=== PATIENT | male | born 1960 | race Caucasian/White ===

== ENCOUNTER 2020-06-03 06:52 | Inpatient (IN) | payer OTHER, SELFPAY ==
[2020-06-03] VITALS (14 sets, daily range): BP systolic 84–110; BP diastolic 52–80; PULSE 66–92; RESP 18–24; TEMP 36.1–37.6; O2SAT 86–99; BMI 35.1
--- NOTE | ~2020-06-03 | US_ITS ---
US renal BI 06/05/2020 14:13 Procedure: Realtime transabdominal ultrasound of the kidneys and bladder. Indication: Acute on chronic renal disease. Comparison: 01/19/2012 Findings: Renal echotexture is normal bilaterally without hydronephrosis, contour deforming mass or r enal calculus. The right kidney measures 11.4 cm and left kidney measures 11.5 cm. There is a Aponte c atheter in the bladder. Impression: 1: Unremarkable renal ultrasound. No stones, masses or hydronephrosis. Reviewed, dictated and finalized at location A. HANDLING EQUIPMENT OPERATOR Impression: 1: Unremarkable renal ultrasound. No stones, masses or hydronephrosis.
--- NOTE | ~2020-06-03 | XR_ITS ---
EXAMINATION: XR chest 1V portable EXAM DATE: 06/16/2020 03:14 INDICATION: Respiratory failure. TECHNIQUE: Portable AP frontal chest x-ray was obtained. Comparison is made to prior examination from 06/14, 06/15. FINDINGS: Left IJ line is oriented correctly, tip at the cavoatrial junction. Endotracheal tube tip is 4-5 centimeters above the zach. There is a nasogastric tube seen with tip collimated off the st udy, but below the left hemidiaphragm. There is diffuse bilateral edema and/or pneumonia, with dense, confluent left upper lobe consolidatio n. There are no sizable pleural effusions. There is no pneumothorax suspected. Cardiomediastinal silhouette is normal. There are mild bony degenerative changes. Significant progression in left upper lobe airspace disease with development of dense consolidation i n that region. The other lung zones appear not significantly changed IMPRESSION: 1. Line, tubes in position. 2. Worsening airspace disease. LY MEDICINE RESIDENT Reviewed, dictated and finalized at location A.
--- NOTE | ~2020-06-03 | XR_ITS ---
EXAMINATION: XR chest 1V portable INDICATION: COVID 19 pneumonia TECHNIQUE: Portable AP chest at 0517 hours COMPARISON: 06/18/2020 FINDINGS: The endotracheal tube ends approximately 7.4 cm above the zach. The nasogastric tube is f ollowed as far as the stomach. Its tip is beyond the inferior margin of the radiograph. A left operations intern al jugular central venous catheter ends with its tip in the distal superior vena cava. Patchy opaciti es persist throughout all lung zones with slight improvement in the right lung. No pleural effusion o r pneumothorax is identified. The cardiomediastinal silhouette is stable. IMPRESSION: 1. Diffuse lung disease with interval improvement in the right lung, consistent with pneumonia and/or pulmonary edema and/or acute respiratory distress syndrome (ARDS). Reviewed, dictated and finalized at location A. E WASHER IMPRESSION: 1. Diffuse lung disease with interval improvement in the right lung, consistent with pneumonia and/or pulmonary edema and/or acute respiratory distress syndro me (ARDS).
--- NOTE | ~2020-06-03 | XR_ITS ---
EXAMINATION: XR chest 1V portable EXAM DATE: 06/17/2020 06:00 INDICATION: Respiratory failure. TECHNIQUE: Portable AP frontal chest x-ray was obtained. Comparison is made to prior examination from 06/16, 06/15. FINDINGS: Left IJ line is tip at the cavoatrial junction. Endotracheal tube tip is 5 centimeters abo ve the zach. Feeding tube tip and side-port project over left upper quadrant, adequate There is diffuse bilateral edema and/or pneumonia. There are no sizable pleural effusions. There i s no pneumothorax suspected. Cardiomediastinal silhouette is normal. There are mild bony degenerat chriss changes. On 06/16 study there was a confluent left upper lobe opacity which could've been atelectasis from muco us plugging given that has resolved. There may be slight interval progression in the other airspace d isease seen diffusely throughout the lungs. IMPRESSION: 1. Line, tubes in position. 2. Diffuse airspace disease, resolution of previously seen left upper lobe consolidation, but overal l mild progression in other lung zones. Reviewed, dictated and finalized at location A. ICE DIRECTOR IMPRESSION: 1. Line, tubes in position. 2. Diffuse airspace disease, resolution of previously seen left upper lobe con solidation, but overall mild progression in other lung zones.
--- NOTE | ~2020-06-03 | XR_ITS ---
EXAMINATION: XR chest 1V portable INDICATION: Respiratory failure TECHNIQUE: Portable AP chest at 0523 hours COMPARISON: 06/09/2020 FINDINGS: The endotracheal tube ends approximately 5.9 cm above the zach. The nasogastric tube is i n the stomach. A left internal jugular central venous catheter ends with its tip in the azygos vein. Patchy bilateral airspace opacities persist with slight interval improvement in all lung zones. There is no pleural effusion or pneumothorax. The cardiomediastinal silhouette is stable. IMPRESSION: 1. Diffuse lung disease with interval improvement, consistent with pneumonia and/or pulmonary edema a nd/or acute respiratory distress syndrome (ARDS). Reviewed, dictated and finalized at location A. RUCTIONAL TECHNOLOGY COACH IMPRESSION: 1. Diffuse lung disease with interval improvement, consistent with pneumonia an d/or pulmonary edema and/or acute respiratory distress syndrome (ARDS).
--- NOTE | ~2020-06-03 | XR_ITS ---
XR chest 1V portable 06/04/2020 13:42 Indication: Shortness of breath. Covid Positive. Procedure: AP portable chest Comparison: Comparison to multiple prior studies sequentially, with oldest reviewed study dated 07/2016. Findings: Patchy bilateral airspace consolidation, consistent with pneumonia. No significant change c ompared with 06/03/2020. Impression: 1: Stable patchy bilateral airspace disease, compatible with pneumonia. Reviewed, dictated and finalized at location A. SEWER Impression: 1: Stable patchy bilateral airspace disease, compatible with pneumonia.
--- NOTE | ~2020-06-03 | XR_ITS ---
EXAMINATION: XR chest ET placement EXAM DATE: 06/19/2020 19:14 INDICATION: Tube placement. COVID pneumonia. Respiratory failure. TECHNIQUE: Portable AP frontal chest x-ray was obtained. Comparison is made to prior examination from earlier same date. FINDINGS: Endotracheal tube tip is 4 centimeters above the zach. There is a nasogastric tube seen with tip collimated off the study, but below the left hemidiaphragm. There is a left IJ venous line, tip extending down the IVC. There is extensive bilateral airspace disease with sparing of the left upper lobe, likely COVID pneum onia given history provided. There are no sizable pleural effusions. There is no pneumothorax susp ected. Cardiomediastinal silhouette is normal. There are mild bony degenerative changes. Airspace disease appears unchanged. IMPRESSION: 1. Line and tube(s) in position. 2. Extensive bilateral acute airspace disease unchanged. Reviewed, dictated and finalized at location A. CTOR OF RESTAURANTS
--- NOTE | ~2020-06-03 | XR_ITS ---
EXAMINATION: XR chest port-a-cath/central INDICATION: Central line insertion TECHNIQUE: Portable AP chest at 1219 hours COMPARISON: 06/05/2020 FINDINGS: A left internal jugular central venous catheter has been inserted which ends with its tip i n the distal superior vena cava. There is no pneumothorax. The endotracheal tube ends approximately 4 cm above the zach. The nasogastric tube is in the stomach. The cardiomediastinal silhouette is nor mal. Patchy bilateral airspace opacities persist with slight improvement in the upper lung zones. IMPRESSION: 1. Right internal jugular central venous catheter insertion. No pneumothorax. 2. Diffuse lung disease with interval improvement, consistent with pneumonia and/or pulmonary edema a nd/or acute respiratory distress syndrome (ARDS). Reviewed, dictated and finalized at location A. AL WEAVER IMPRESSION: 1. Right internal jugular central venous catheter insertion. No pneumothorax. 2. Diffuse lung disease with interval improvement, consistent with pneumonia an d/or pulmonary edema and/or acute respiratory distress syndrome (ARDS).
--- NOTE | ~2020-06-03 | XR_ITS ---
XR abdomen NG/feed tube insert INDICATION: Evaluate NG tube position. TECHNIQUE: Limited KUB perform for evaluating NG tube . COMPARISON: No prior studies for comparison. FINDINGS: NG tube tip in the stomach. Visualized bowel gas pattern is unremarkable.There is retrocar diac airspace consolidation which may represent atelectasis or pneumonia. IMPRESSION: 1: NG tube tip in the stomach. Reviewed, dictated and finalized at location A. OR GREETING CARD
--- NOTE | ~2020-06-03 | XR_ITS ---
XR chest ET placement 06/05/2020 11:53 Indication: Respiratory distress. Covid. Dyspnea. Procedure: AP portable chest Comparison: Comparison to multiple prior studies sequentially, with oldest reviewed study dated 07/2016. Findings: Endotracheal tube 4.3 cm above the zach. Interval progression of diffuse bilateral airspa ce disease which may represent pneumonia or edema. No effusion or pneumothorax. Impression: 1: Significant progression of diffuse bilateral airspace disease, pneumonia versus edema. Reviewed, dictated and finalized at location A. INE OPERATOR REPLANTER Impression: 1: Significant progression of diffuse bilateral airspace disease, pneumonia kalina sae edema.
--- NOTE | ~2020-06-03 | XR_ITS ---
XR chest 1V portable 06/12/2020 06:12 Indication: Respiratory failure Procedure: AP portable chest Comparison: Comparison to multiple prior studies sequentially, with oldest reviewed study dated 06/08. Findings: Stable extensive bilateral airspace disease with focal consolidation in the lower lung zone s. Endotracheal tube tip 5.2 cm above the zach. There is a central line which has been repositioned with the tip now directed superiorly into the brachiocephalic vein. No pneumothorax. NG tube in the stomach. Impression: 1: Stable diffuse bilateral airspace disease most confluent in the lower lung zones. Differential lito gnosis includes edema, pneumonia and/or atelectasis. Reviewed, dictated and finalized at location A. RIBUTION COLLECTION OPERATOR Impression: 1: Stable diffuse bilateral airspace disease most confluent in the lower lung z ones. Differential diagnosis includes edema, pneumonia and/or atelectasis.
--- NOTE | ~2020-06-03 | XR_ITS ---
EXAMINATION: XR chest 1V portable INDICATION: COVID 19 pneumonia TECHNIQUE: Portable AP chest at 0522 hours COMPARISON: 06/17/2020 FINDINGS: The endotracheal tube ends approximately 5.4 cm above the zach. The nasogastric tube is f ollowed as far as the stomach. Its tip is beyond the inferior margin of the radiograph. A left fall internship al jugular central venous catheter ends with its tip in the distal superior vena cava. Diffuse opacit ies persist throughout the right lung and in the left mid and lower lung zones without significant ch graham. There is no pleural effusion or pneumothorax. The cardiomediastinal silhouette is stable. IMPRESSION: 1. Stable diffuse lung disease, consistent with pneumonia and/or pulmonary edema and/or acute respira tory distress syndrome (ARDS). Reviewed, dictated and finalized at location A. ER MILL TENDER IMPRESSION: 1. Stable diffuse lung disease, consistent with pneumonia and/or pulmonary markos a and/or acute respiratory distress syndrome (ARDS).
--- NOTE | ~2020-06-03 | XR_ITS ---
EXAMINATION: XR chest 1V portable EXAM DATE: 06/20/2020 06:06 INDICATION: COVID-19 , acute hypoxic respiratory failure. TECHNIQUE: Portable AP frontal chest x-ray was obtained. Comparison is made to prior examination from 06/19/2020. FINDINGS: Endotracheal tube tip is 4-5 centimeters above the zach. There is a nasogastric tube see n with tip collimated off the study, but below the left hemidiaphragm. There is a left IJ venous li ne, tip projecting over cavoatrial junction. Extensive bilateral infection and/or edema. There are no sizable pleural effusions. There is no pn eumothorax suspected. Cardiomediastinal silhouette is normal. The bones and soft tissues are unrem arkable. There is no significant interval change compared to prior exam. IMPRESSION: 1. Line and tube(s) in position. 2. Extensive bilateral infection and/or edema unchanged. Reviewed, dictated and finalized at location A. URE PRINTING MACHINIST
--- NOTE | ~2020-06-03 | XR_ITS ---
EXAMINATION: XR chest 1V portable INDICATION: Respiratory failure TECHNIQUE: Portable AP chest at 0520 hours COMPARISON: 06/06/2020 FINDINGS: The endotracheal tube ends approximately 4.6 cm above the zach. The nasogastric tube is f ollowed as far as the stomach. Its tip is beyond the inferior margin of the radiograph. A left copywriting intern al jugular central venous catheter ends with its tip in the proximal superior vena cava. There are di ffuse opacities throughout all lung zones with significant interval worsening. No pleural effusion or pneumothorax is identified. The cardiac silhouette is obscured. IMPRESSION: 1. Diffuse lung disease with significant interval worsening, consistent with pneumonia and/or pulmona ry edema and/or acute respiratory distress syndrome (ARDS). Reviewed, dictated and finalized at location A. MAKER IMPRESSION: 1. Diffuse lung disease with significant interval worsening, consistent with pn eumonia and/or pulmonary edema and/or acute respiratory distress syndrome (ARDS ).
--- NOTE | ~2020-06-03 | XR_ITS ---
EXAMINATION: XR chest port-a-cath/central EXAM DATE: 06/08/2020 10:56 INDICATION: Central line placement. TECHNIQUE: Portable AP frontal chest x-ray was obtained. Comparison is made to prior examination from earlier same date. FINDINGS: The left IJ venous line is now pointing inferiorly, tip overlying expected position of cav oatrial junction. Endotracheal tube and nasogastric tube are both in position. Again there is fairly extensive right-sided and small amount of left-sided airspace disease. There a re no sizable pleural effusions. There is no pneumothorax suspected. The cardiomediastinal silhou ette is prominent but magnified on this AP technique. There are mild bony degenerative changes. IMPRESSION: 1. Line and tube(s) in position. 2. Stable right-sided predominant pneumonia and/or edema. Reviewed, dictated and finalized at location B. RING CLINICIAN
--- NOTE | ~2020-06-03 | XR_ITS ---
EXAMINATION: XR chest 1V portable EXAM DATE: 06/14/2020 06:10 INDICATION: Respiratory failure. TECHNIQUE: Portable AP frontal chest x-ray was obtained. Comparison is made to prior examination from 06/12/2020, 06/13. FINDINGS: Left IJ line is oriented correctly, tip at the cavoatrial junction. Endotracheal tube tip is 5 centimeters above the zach. Feeding tube tip and side-port are in position. There is moderate amount of right-sided, moderate amount of left-sided pneumonia and/or edema. There are no sizable pleural effusions. There is no pneumothorax suspected. Cardiomediastinal silhouet te is normal. There are mild bony degenerative changes. There is no significant interval change compared to prior exam. IMPRESSION: 1. Line, tubes in position. 2. Stable airspace disease and other findings as above. Reviewed, dictated and finalized at location A. BACKER
--- NOTE | ~2020-06-03 | XR_ITS ---
EXAMINATION: XR chest 1V portable, XR abdomen/kub 1V DATE: 06/12/2020 19:32 INDICATION: Aspiration. Feeding tube placement. TECHNIQUE: 1. Frontal view of the chest was obtained. 2. Portable AP semiupright view of the abdomen was obtained. COMPARISON: Chest radiograph dated 06/12/2020 FINDINGS: Chest: Endotracheal tube tip 6.1 cm above the zach. Nasogastric tube extends below the left hemidiaphragm with distal tip collimated off the study. Left internal jugular central venous catheter which agai n seen extending across the midline and extending cephalad with distal tip in the caudal right analysis intern al jugular vein. No significant interval change in reticular and mild patchy airspace opacities in the bilateral mid t o lower lung zones. No pleural effusion or pneumothorax. Heart size is normal. The cardiomediastinal silhouette is normal. Abdomen: Nasogastric tube tip in proximal side port in the body of the stomach. Moderate amount of stool and s ome gas is seen within the visualized colon. No dilated loops of gas-filled bowel to suggest obstruct ion. IMPRESSION: 1. Endotracheal tube tip 6.1 cm above the zach. Consider advancement by 4 cm. 2. Left internal jugular central venous catheter with distal tip at the caudal right internal jugular vein. Could consider rapid saline flush to attempt to reposition the tip in the inferior vena cava. 3. No significant interval change in diffuse lung disease in the bilateral mid and lower lung zones w hich could represent pneumonia, pulmonary edema, atelectasis or some combination thereof. 4. Nasogastric tube in the stomach. Reviewed, dictated and finalized at location A. ET FLUSHER DRIVER IMPRESSION: 1. Endotracheal tube tip 6.1 cm above the zach. Consider advancement by 4 cm. 2. Left internal jugular central venous catheter with distal tip at the caudal right internal jugular vein. Could consider rapid saline flush to attempt to re position the tip in the inferior vena cava. 3. No significant interval change in diffuse lung disease in the bilateral mid and lower lung zones which could represent pneumonia, pulmonary edema, atelecta sis or some combination thereof. 4. Nasogastric tube in the stomach.
--- NOTE | ~2020-06-03 | XR_ITS ---
EXAMINATION: XR chest 1V portable INDICATION: Respiratory failure TECHNIQUE: Portable AP chest at 0541 hours COMPARISON: 06/08/2020 FINDINGS: The endotracheal tube ends approximately 5 cm above the zach. The nasogastric tube is in the stomach. A left internal jugular central venous catheter ends with its tip in the midsuperior benita a cava. Patchy bilateral airspace opacities persist with interval worsening in all lung zones. The ca rdiomediastinal silhouette is stable. No pleural effusion or pneumothorax is identified. IMPRESSION: 1. Diffuse lung disease with interval worsening, consistent with pneumonia and/or pulmonary edema and /or acute respiratory distress syndrome (ARDS). Reviewed, dictated and finalized at location A. SELOR EDUCATION PROFESSOR IMPRESSION: 1. Diffuse lung disease with interval worsening, consistent with pneumonia and/ or pulmonary edema and/or acute respiratory distress syndrome (ARDS).
--- NOTE | ~2020-06-03 | XR_ITS ---
EXAMINATION: XR abdomen NG/feed tube insert EXAM DATE: 06/19/2020 19:14 INDICATION: NG tube placement. TECHNIQUE: Frontal projection(s) of the abdomen for interpretation. Comparison is made to prior exami nation from 06/12/2020. FINDINGS: Feeding tube tip and side-port project over gastric bubble, expected position. Nonobstruct chriss upper abdominal bowel gas pattern. Extensive bibasilar airspace disease. IMPRESSION: Feeding tube in position. Reviewed, dictated and finalized at location A. DATA ARCHITECT IMPRESSION: Feeding tube in position.
--- NOTE | ~2020-06-03 | XR_ITS ---
EXAMINATION: XR chest 1V portable INDICATION: Respiratory failure TECHNIQUE: Portable AP chest at 0532 hours COMPARISON: 06/07/2020 FINDINGS: The endotracheal tube ends proximally 6 cm above the zach. A nasogastric tube is in the s tomach. The tip of the left internal jugular central venous catheter is now present in the right brac hiocephalic vein. There are diffuse opacities throughout all lung zones with slight improvement. Card iomegaly is noted. No definite pleural effusion or pneumothorax is identified. IMPRESSION: 1. Diffuse lung disease with interval improvement, consistent with pneumonia and/or pulmonary edema a nd/or acute respiratory distress syndrome (ARDS). 2. Tip of the left internal jugular catheter displaced into the right brachiocephalic vein. Reviewed, dictated and finalized at location A. S CONSULTANT IMPRESSION: 1. Diffuse lung disease with interval improvement, consistent with pneumonia an d/or pulmonary edema and/or acute respiratory distress syndrome (ARDS). 2. Tip of the left internal jugular catheter displaced into the right brachioce phalic vein.
--- NOTE | ~2020-06-03 | XR_ITS ---
EXAMINATION: XR chest 1V portable EXAM DATE: 06/13/2020 05:33 INDICATION: Respiratory failure. TECHNIQUE: Portable AP frontal chest x-ray was obtained. Comparison is made to prior examination from 06/12/2020. FINDINGS: Left IJ line goes to brachiocephalic junction and then extends up toward the right interna l jugular vein. Endotracheal tube tip is 5 centimeters above the zach. Feeding tube tip and side-p ort are in position. There is small to moderate amount of right-sided, moderate amount of left-sided pneumonia and/or markos a. There are no sizable pleural effusions. There is no pneumothorax suspected. Cardiomediastinal silhouette is normal. There are mild bony degenerative changes. There is no significant interval change compared to prior exam. IMPRESSION: 1. Abnormally positioned left IJ with tip extending up right brachiocephalic/internal jugular vein. 2. Stable airspace disease and other findings as above. Reviewed, dictated and finalized at location A. WORK TIER IMPRESSION: 1. Abnormally positioned left IJ with tip extending up right brachiocephalic/i nternal jugular vein. 2. Stable airspace disease and other findings as above.
--- NOTE | ~2020-06-03 | XR_ITS ---
EXAMINATION: XR chest 1V portable EXAM DATE: 06/15/2020 06:15 INDICATION: Respiratory failure. TECHNIQUE: Portable AP frontal chest x-ray was obtained. Comparison is made to prior examination from 06/12, 06/13 and 06/14. FINDINGS: Left IJ line is oriented correctly, tip at the cavoatrial junction. Endotracheal tube tip is 4-5 centimeters above the zach. Feeding tube tip and side-port are in position. There is diffuse bilateral edema and/or pneumonia. There are no sizable pleural effusions. There i s no pneumothorax suspected. Cardiomediastinal silhouette is normal. There are mild bony degenerat chriss changes. Lungs appear slightly more opacified than on most of the last several chest x-rays. IMPRESSION: 1. Line, tubes in position. 2. Diffuse bilateral edema and/or pneumonia. PACKER AND SEALER Reviewed, dictated and finalized at location A.
--- NOTE | ~2020-06-03 | CT_ITS ---
EXAMINATION: CT brain wo con DATE: 06/07/2020 21:09 INDICATION: Confusion and agitation TECHNIQUE: Computed tomography (CT) of the head was performed without intravenous contrast. Sagittal and coronal reconstructions were performed. The mA was adjusted according to patient size. Iterative reconstruction technique was employed. The dose-length product was 605.33 mGy-cm. COMPARISON: head CT dated 06/03/2020 FINDINGS: No acute intracranial hemorrhage, acute infarction or abnormal extra axial fluid collection. There is mild scattered white matter hypoattenuation consistent with chronic small vessel ischemic disease. S ymmetric prominence of the sulci consistent with mild age-appropriate diffuse cerebral volume loss. V entricles are normal and symmetric. No mass/mass effect. The orbits, paranasal sinuses and mastoid ai r cells are normal. IMPRESSION: 1. No acute intracranial process. 2. Stable appearance of age-related changes including mild diffuse volume loss and mild scattered whi te matter hypoattenuation consistent with chronic small vessel ischemic disease. Reviewed, dictated and finalized at location A. ROLLING MACHINE TENDER IMPRESSION: 1. No acute intracranial process. 2. Stable appearance of age-related changes including mild diffuse volume loss and mild scattered white matter hypoattenuation consistent with chronic small v essel ischemic disease.
--- NOTE | ~2020-06-03 | XR_ITS ---
XR chest 1V portable 06/11/2020 05:57 Indication: Respiratory failure Procedure: AP portable chest Comparison: Comparison to multiple prior studies sequentially, with oldest reviewed study dated 06/08. Findings: Endotracheal tube tip 6 cm above the zach. NG tube in the stomach. Left IJ central line t ip in the azygos vein. Persistent diffuse bilateral airspace disease without significant change. Hear t size normal. No pneumothorax. Impression: 1: Stable diffuse bilateral airspace disease which may represent edema or pneumonia. Reviewed, dictated and finalized at location A. ING LINE OPERATOR Impression: 1: Stable diffuse bilateral airspace disease which may represent edema or pneum onia.
--- NOTE | ~2020-06-03 | XR_ITS ---
EXAMINATION: XR chest port-a-cath/central DATE: 06/13/2020 08:57 INDICATION: Central line placement. COVID-19 pneumonia. TECHNIQUE: A single frontal view of the chest was obtained. COMPARISON: Chest single view at 4:40 AM FINDINGS: The patient is rotated to his left. There are airspace and interstitial opacities throughou t the lungs bilaterally. No pleural effusion or pneumothorax. The heart size is normal. The endotrach eal tube tip is 5.0 cm above the zach. A left internal jugular central venous catheter is seen with tip at the superior cavoatrial junction. The nasogastric tube tip is beyond the inferior margin of t he radiograph, but at least to the stomach. IMPRESSION: 1. Central line tip at the superior cavoatrial junction. 2. Stable diffuse lung disease, consistent with pulmonary edema versus pneumonia. Reviewed, dictated and finalized at location B. ORATION MANAGER IMPRESSION: 1. Central line tip at the superior cavoatrial junction. 2. Stable diffuse lung disease, consistent with pulmonary edema versus pneumoni a.
--- NOTE | ~2020-06-03 | XR_ITS ---
XR chest 1V portable 06/03/2020 07:39 Indication: Weakness and shortness of breath. Covid . Procedure: AP portable chest Comparison: Comparison to multiple prior studies sequentially, with oldest reviewed study dated 09/21. Findings: There is extensive bilateral airspace disease. No significant pleural effusion or pneumotho rax. Cardiomegaly. Mild ectasia of the aorta. No acute osseous abnormality. Impression: 1: Extensive bilateral airspace disease, most likely pneumonia versus edema. 2: Cardiomegaly. Reviewed, dictated and finalized at location A. CLOTH INSPECTOR Impression: 1: Extensive bilateral airspace disease, most likely pneumonia versus edema. 2: Cardiomegaly.
--- NOTE | ~2020-06-03 | CT_ITS ---
EXAMINATION: CT brain wo con DATE: 06/03/2020 07:45 INDICATION: Leg weakness. Recent falls. Confusion. TECHNIQUE: Computed tomography (CT) of the head was performed without intravenous contrast. The dose- length product was 756.67 mGy-cm. The mA was adjusted according to patient size. Iterative reconstruc tion technique was employed. COMPARISON: CT dated 10/20/2011 FINDINGS: No acute intracranial hemorrhage, infarction, mass or mass effect. No ventriculomegaly or m idline shift. Mild generalized atrophy. There are scattered mild periventricular and subcortical whit e matter changes, most likely related to small vessel ischemic disease (microangiopathy). There is in tracranial atherosclerosis. Basilar cisterns are patent. Paranasal sinuses and mastoids are pneumatiz ed. Midline sagittal images are normal. IMPRESSION: 1. No acute intracranial abnormality. 2: Chronic age-related findings. Reviewed, dictated and finalized at location A. MECHANIC
--- NOTE | 2020-06-03 07:02 | ED.DIZZY ---
HPI - Dizziness General Chief Complaint: Dizziness Stated Complaint: DIZZINESS,COVID + Time Seen by Provider: 06/03/20 07:02 History of Present Illness HPI Narrative: 60 yo male w/ unknown medical history presents to the ED for weakness. He reports that he has been feeling weak and dizzy since 05/28. He had a positive COVID-19 test the same day. His symptoms have continued to get worse since that time. He has had multiple recent falls. He says that as soon as he stands he gets a spinning sensation and his legs give out and he falls. He denies, chest pain, SOB, nausea, vomiting, diarrhea. He was noted to have BA oxygen saturation in the 70s with modest improvement on 6 liters by [place] Related Data Home Medications Medication Instructions Recorded Confirmed nifedipine 30 mg tablet,extended 30 mg PO DAILY 05/29/19 05/18/20 release mecobalamin (vitamin B12) 5,000 5,000 mcg PO DAILY tablet 01/04/20 05/18/20 mcg disintegrating tablet omeprazole 20 mg capsule,delayed 40 mg PO DAILY cap 05/18/20 05/18/20 release Allergies Allergy/AdvReac Type Severity Reaction Status Date / Time No Known Allergies Allergy Verified 06/03/20 07:39 Review of Systems Review of Systems: All systems reviewed & are unremarkable except as noted in HPI and below Constitutional: Constitutional: Reports fatigue, Reports fever(s) and Reports weakness Eyes: Eyes: Reports no additional eye complaints Cardiovascular: Cardiovascular: Denies chest pain Respiratory: Respiratory: Denies cough and Denies dyspnea Gastrointestinal: Gastrointestinal: Denies abdominal pain, Denies diarrhea, Denies nausea and Denies vomiting Genitourinary: Genitourinary: Denies dysuria Musculoskeletal: Musculoskeletal: Reports myalgias Neurologic: Reports confusion, Reports dizziness, Denies syncope, Denies headache(s), Denies numbness and Reports weakness Endocrine: Endocrine: Reports fatigue PMFSH Past Medical History Medical History Anemia Folate deficiency Gastro-esophageal reflux disease without esophagitis Pancreatitis Family History Family History Father Patient's father is Social History Social History Smoking status: Never smoker Second hand tobacco smoke exposure: No Alcohol intake: never Substance use: never Exam Const: General: no acute distress, alert and ill appearing Nutritional Appearance: well nourished Orientation/consciousness: patient oriented x3 HENMT: Head: normal to inspection, no contusions and no lacerations Eyes: Pupils: Equal, round and reactive pupils present Resp: Effort & Inspection: normal respiratory effort Auscultation: rhonchi Cardio: Rate: regular rate Rhythm: regular rhythm GI: GI Palp: Yes Soft to palpation and No Tenderness to palpation present (GI) Skin: General skin exam: normal color Rashes: no rashes Neuro: General: patient oriented x3, moves all extremities, no focal motor deficits and CN's II-XI intact bilaterally Speech: normal speech Extrem: General: normal to inspection and no edema Other: no calf tenderness Course Vital Signs Vital signs: Vital Signs Temperature 37.6 C H 06/03/20 06:55 Pulse Rate 78 06/03/20 06:55 Respiratory Rate 22 H 06/03/20 06:55 Blood Pressure 101/58 L 06/03/20 06:55 Pulse Oximetry 88 L 06/03/20 06:55 Temperature 37.6 C H 06/03/20 06:55 Pulse Rate 78 06/03/20 06:55 Respiratory Rate 22 H 06/03/20 06:55 Blood Pressure 101/58 L 06/03/20 06:55 Pulse Oximetry 88 L 06/03/20 06:55 MDM - Dizziness MDM Narrative Medical decision making narrative: Labs show significant worsening of CKD. Diffuse infiltrates on CXR. Requiring significant supplemental O2. Lab Data Attestation: I reviewed the patient's lab results. Lab results narrative: SUPA
--- NOTE | 2020-06-03 07:20 | ECG_ITS ---
Measurements Intervals Jenners Rate: 77 P: -5 FL: 205 QRS: -25 QRSD: 89 T: -5 QT: 317 QTc: 359 Interpretive Statements SINUS RHYTHM INCOMPLETE RIGHT BUNDLE BRANCH BLOCK BASELINE ARTIFACT- I, II, III, AVR, AVL, AVF, V1-V6 BORDERLINE ECG Electronically Signed On 06-03-2020 8:12:14 CARRY ALL DRIVER by Zane Hawley D.O.
[2020-06-03] MEDS: SODIUM CHLORIDE 0.9% IV 500 ML 999 ML IV CONT ×2 (07:27→17:00)
[2020-06-03 07:35] LABS: Basophils Percent Auto 0.2 % (0.2-1.2); Hematocrit 41.4 % (42.0-52.0); Hemoglobin 13.8 g/dL (14.0-18.0); Immature Granulocyte Absolute 0.09 K/mm3 (0.00-0.031); Immature Granulocyte Percent A 1.7 % (0-0.5); Lymphocytes Absolute Auto 0.53 K/mm3 (0.9-3.2); Lymphocytes Percent Auto 10.1 % (18.3-44.2); Mean Corpuscular HGB Conc 33.3 g/dl (32-36); Mean Corpuscular Hemoglobin 29.7 pg (26-34); Mean Corpuscular Volume 89.2 fl (80-100); Mean Platelet Volume 12.1 fl (7.4-10.4); Monocytes Absolute Auto 0.3 K/mm3 (0.1-0.6); Monocytes Percent Auto 6.1 % (2.6-8.5); Neutrophils Absolute Auto 4.3 K/mm3 (1.3-6.7); Neutrophils Percent Auto 81.9 % (45.5-73.1); Platelet Count Result 148 k/mm3 (150-375); Red Blood Count 4.64 M/mm3 (4.6-6.20); Red Cell Distribution Width 13.3 % (11.5-14.5); White Blood Count 5.2 K/mm3 (4.5-10.0)
[2020-06-03 07:43] LABS: Prothrombin Time 13.4 Seconds (11.1-14.7)
[2020-06-03 07:44] LABS: Partial Thromboplastin Time 36.5 SECONDS (22.3-36.8)
[2020-06-03 07:48] LABS: Lactic Acid Reflex 1.4 mmol/L (0.7-2.1)
[2020-06-03 07:52] LABS: Alanine Aminotransferase 25 U/L (4-50); Albumin Level 3.7 g/dL (3.5-5.1); Alkaline Phosphatase 92 U/L (38-126); Anion Gap 12 mmol/L (8-16); Aspartate Amino Transferase 48 U/L (17-59); Blood Urea Nitrogen 59 mg/dL (9-20); Calcium 8.6 mg/dL (8.4-10.2); Carbon Dioxide 22 mmol/L (22-30); Chloride 101 mmol/L (98-107); Estimated CRCL calculation 18 ml/min; Estimated Glomerular Filt Rate 14; Glucose 115 mg/dL (75-110); Potassium 4.1 mmol/L (3.4-5.0); Sodium 135 mmol/L (137-145)
[2020-06-03 08:01] LABS: CRP 19.9 mg/dL (<1.0)
--- NOTE | 2020-06-03 09:17 | ADMGEN ---
This patient, Ernie Heath, was admitted to IMU Room 214-01. Patient/family oriented to hospital policies and general routines including ID bracelet, bed and alarms, visiting hours, pain management, procedures, bathroom and other care routines, personal items, smoking policy, room service/diet, and visiting hours. Information on how to activate the Rapid Response Team has been discussed. Patient/Family are encouraged to report perceived risks to care and to ask questions if they do not understand what they are told or what they should do.
--- NOTE | 2020-06-03 09:46 | PM.CNNEP ---
Assessment and Plan Assessment and plan (1) Acute on chronic renal insufficiency: Code(s): N28.9 - Disorder of kidney and ureter, unspecified; N18.9 - Chronic kidney disease, unspecified Status: Acute Assessment and Plan: Patient has chronic kidney disease. This is from hypertension. He has a baseline creatinine of around 1.5. He has acute kidney injury. He has not been eating and drinking great but he says he has been consuming some. He might be a little dehydrated. He also has COVID and so could have some affects of COVID on the kidneys. He also was taking nonsteroidal anti-inflammatory agents. He is on lisinopril but that should and cause any of this. However because of the rising creatinine we will hold this medication and use something else for blood pressure if he needs it. His blood pressure is a little bit on the low side anyway. Obstruction is always a possibility so we will check a renal ultrasound. Glomerulonephritis and interstitial nephritis are less likely possibilities. We will check a urinalysis. Rhabdomyolysis is unlikely but we will check a CPK To evaluate the some going to get a renal ultrasound, urine electrolytes and eosinophils. We will give him some IV fluids for short amount of time. I do want to over do it because of the COVID. We will hold the nonsteroidal anti-inflammatory agents and hold his lisinopril. (2) COVID-19: Code(s): U07.1 - COVID-19 Status: Acute Assessment and Plan: The patient has COVID-19. He is getting supportive care. Will hydrate conservatively (3) Acute hypoxemic respiratory failure: Code(s): J96.01 - Acute respiratory failure with hypoxia Status: Acute Assessment and Plan: Chest x-ray shows some Infiltrates from the COVID-19. The patient is on some oxygen now. (4) Gastro-esophageal reflux disease without esophagitis: Code(s): K21.9 - Gastro-esophageal reflux disease without esophagitis Status: Acute Assessment and Plan: The patient is on omeprazole at home. Will switch to famotidine. (5) Anemia: Code(s): D64.9 - Anemia, unspecified Status: Acute Assessment and Plan: This is mild. No need for EPO. (6) YUDY (obstructive sleep apnea): Code(s): G47.33 - Obstructive sleep apnea (adult) (pediatric) Status: Acute History of Present Illness Reason for Consult Consult date: 06/03/20 Chief Complaint Chief complaint: Acute Hypoxemic Resp Failure,COVID19 Pneumonia,SUPA History of Present Illness Narrative: Rebecca is a very pleasant 60-year-old gentleman who has chronic kidney disease with a baseline creatinine of 1.5. This is from hypertension. He also has a past history of anemia, folate deficiency, GERD, and pancreatitis. The patient said he was feeling well until about the 28 of May when he started feeling poorly had a fever he had aches and pains little bit of a cough not very much shortness of breath at all he says. He went to [facility] to get tested and he was COVID positive. He went home because he was not feeling bad enough to go to the hospital. Over the last few days he has felt gradually worse and developed some dizziness so he came to the ER. In the ER is found to be hypoxic so he was placed on some oxygen and admitted to the floor. Patient still denies shortness of breath. He has got no chest pain. He has got a little bit of a cough and still has the aches and pains that he was having before. Is no skin rash no joint pain no sores in his mouth no hair loss and clumps no malar rash. The patient says that while he was at home with the COVID he was taking Advil 2 pills all today with Aleve 2 pills, 1 or the other every 4 hours. He says he is making urine. His urine is yellow. He has no bloody urine foamy urine kidney stones or bladder infections. No pain with urination. No swelling. He continues to take all of his usual medications.
[2020-06-03 10:08] LABS: Creatine Kinase 150 U/L (55-170)
[2020-06-03] MEDS: SODIUM CHLORIDE 0.9% IV 1,000 ML 75 ML IV CONT (10:51)
--- NOTE | 2020-06-03 11:01 | PM.IMHP ---
H&P: HPI History of Present Illness Date/Time: 06/03/20 11:01 Chief Complaint: Not feeling well . Narrative: Ernie Heath is a 60 year old male with PMHx significant for Pancreatitis, Pancreatic pseudocyst, HTN, Chronic abdominal pain, patient has been in his usual state of health up until May when he was feeling very fatigued, and got tested for Covid 19 was came back positive patient today was not feeling well and decide to come to ED where he was found to have a saturation on RA in the 70's was placed on NC. According to records patient was feeling dizzy and falling at home when standing. Patient was found to have lung infiltrates on chest xr, elevated Bun/Cr. Review of Systems Review of Systems: Narrative: Unable to get a thorough review as patient is poor historian. Constitutional: Comments: States that he is not feeling well. Cardiovascular: Comments: Dizziness. Respiratory: Comments: SOB, dry cough. Gastrointestinal: Comments: no n/v/abdominal pain. Musculoskeletal: Comments: no body aches. Neurologic: Comments: no focal deficits. [facility] Past Medical History Medical History (Updated 06/03/20 @ 09:52 by Eligio Coronado MD) Anemia COVID-19 Folate deficiency Gastro-esophageal reflux disease without esophagitis Pancreatitis Family History Family History Father Patient's father is Social History Social History Smoking status: Never smoker Second hand tobacco smoke exposure: No Alcohol intake: never Substance use: never Substance use type: does not use Spiritual care concerns: No Meds Home Medications and Allergies Home Medications Medication Instructions Recorded Confirmed Type nifedipine 30 mg tablet,extended 30 mg PO DAILY 05/29/19 06/03/20 History release carvedilol 6.25 mg tablet 6.25 mg PO Q12H #180 tablet 06/01/19 06/03/20 Rx mecobalamin (vitamin B12) 5,000 5,000 mcg PO DAILY tablet 01/04/20 06/03/20 History mcg disintegrating tablet allopurinol 300 mg tablet 300 mg PO DAILY #90 tablet 02/05/20 06/03/20 Rx lisinopril 40 mg tablet 40 mg PO DAILY #90 tablet 02/05/20 06/03/20 Rx omeprazole 20 mg capsule,delayed 40 mg PO DAILY cap 05/18/20 06/03/20 History release aspirin 81 mg PO DAILY 06/03/20 06/03/20 History cholecalciferol (vitamin D3) 50 mcg PO DAILY 06/03/20 06/03/20 History [Vitamin D3] Allergies Allergy/AdvReac Type Severity Reaction Status Date / Time No Known Allergies Allergy Verified 06/03/20 07:39 Vital Signs Vital Signs - 24 hr 06/03/20 06:55 06/03/20 07:25 06/03/20 08:06 Temperature 99.7 F H Pulse Rate 78 72 75 Respiratory Rate 22 H 24 H 22 H Blood Pressure 101/58 L 104/68 95/67 L Pulse Oximetry 88 L 91 93 06/03/20 08:21 06/03/20 08:54 06/03/20 10:00 Temperature 98.7 F Pulse Rate 75 78 79 Respiratory Rate 24 H 24 H 20 Blood Pressure 99/59 L 102/53 L Pulse Oximetry 91 91 91 Exam Narrative: Exam Narrative: Patient is sitting. Const: General: no acute distress, alert, awake, Physically active, ill appearing and tired appearing Nutritional Appearance: average body habitus Limitations: no limitations HENMT: Head: normal to inspection and normocephalic Ears: hearing grossly normal bilaterally General nose exam: Normal external nose present Face and sinus: normal facial exam Eyes: General: appearance normal, both eyes and all related structures Pupils: Equal, round and reactive pupils present EOM: EOMs intact bilaterally Neck: Neck: no lymphadenopathy, supple and no JVD Resp: Effort & Inspection: normal respiratory effort Auscultation: diminished lung sounds Cardio: Jugular venous distension: no JVD Rate: regular rate Rhythm: regular rhythm GI: Inspection: normal to inspection GI Palp: Yes Soft to palpation and Yes No hepatosplenomegaly present Skin: Gen
[2020-06-03 12:19] LABS: Add Urine Microscopic? YES; Appearance Urine Cloudy (Clear); Bacteria Urine Trace /hpf; Bilirubin Urine Negative (Negative); Blood Urine Negative (Negative); Color Urine Yellow (Yellow); Glucose Urine UA Negative (Negative); Ketones Urine Negative (Negative); Leukocyte Esterase Ur Negative LEU/UL (Negative); Mucus Urine Rare /lpf; Nitrate Urine Negative (Negative); Protein Urine 1+ mg/dL (Negative); RBC Urine 0-2 /hpf (0-2); Specific Grav Ur 1.016 (1.001-1.035); Squamous Epithelial Cell Urine Rare /hpf (Few)
[2020-06-03 12:21] LABS: Creatinine Urine 192.9 mg/dL; Sodium Urine Random 27 meq/L; Total Protein Urine Random 37 mg/dL; Ur Ttl Prot Creatinine Ratio 0.19 mg/mg (0-0.20)
[2020-06-03 17:11] LABS: Alveolar/Arterial O2 Gradient 628.2 mmHg; Base Excess ABG -7.5 mEq/l (+/-2.0); Device NON-REBREATHER MASK; Fractional Inspired Oxygen 100 %; HCO3 ABG 16.5 mEq/l (22.0-26.0); Modified Allen's Test Pass; Oxygen Content ABG 16.5 %vol (16.0-22.0); Oxygen Saturation ABG 88.4 % (95.0-100.0); Oxyhemoglobin 86.9 % THb (90.0-100.0); PCO2 ABG 29.5 mmHg (35.0-45.0); PO2 ABG 55.3 mmHg (80.0-100.0); PO2 FiO2 Ratio Arterial Blood 0.55 %; Site Drawn RIGHT RADIAL; Total Hemoglobin 13.5 g/dL (12.0-18.0); pH ABG 7.366 (7.350-7.450)
[2020-06-04] VITALS (23 sets, daily range): BP systolic 92–106; BP diastolic 61–70; PULSE 63–87; RESP 18–24; TEMP 35.9–37.1; O2SAT 91–97
[2020-06-04 06:15] LABS: Albumin Level 3.2 g/dL (3.5-5.1); Anion Gap 13 mmol/L (8-16); Blood Urea Nitrogen 76 mg/dL (9-20); Calcium 8.6 mg/dL (8.4-10.2); Carbon Dioxide 21 mmol/L (22-30); Chloride 104 mmol/L (98-107); Estimated CRCL calculation 19 ml/min; Estimated Glomerular Filt Rate 12; Glucose 126 mg/dL (75-110); Phosphorus 5.6 mg/dL (2.5-4.5); Potassium 4.2 mmol/L (3.4-5.0); Sodium 138 mmol/L (137-145)
[2020-06-04] MEDS: ALBUTEROL SULFATE NEB 2.5 MG/0.5 ML INH INHALATION ×5 (09:30→23:31)
[2020-06-04] MEDS: DEXAMETHASONE SOD PHOS INJ 4 MG/ML VIAL 6 MG IV PUSH (09:39)
[2020-06-04 09:52] LABS: Alveolar/Arterial O2 Gradient 623.4 mmHg; Base Excess ABG -8.2 mEq/l (+/-2.0); Fractional Inspired Oxygen 100 %; HCO3 ABG 15.5 mEq/l (22.0-26.0); Oxygen Saturation ABG 91.5 % (95.0-100.0); Oxyhemoglobin 90.9 % THb (90.0-100.0); PCO2 ABG 27.7 mmHg (35.0-45.0); PO2 ABG 61.9 mmHg (80.0-100.0); PO2 FiO2 Ratio Arterial Blood 0.62 %; Site Drawn LEFT BRACHIAL; Total Hemoglobin 14.1 g/dL (12.0-18.0); pH ABG 7.366 (7.350-7.450)
[2020-06-04 09:53] LABS: Device NON-REBREATHER MASK
--- NOTE | 2020-06-04 12:19 | PM.PNNEP ---
Progress Note: A&P Assessment and Plan (1) Acute on chronic renal insufficiency: Code(s): N28.9 - Disorder of kidney and ureter, unspecified; N18.9 - Chronic kidney disease, unspecified Status: Acute Assessment and Plan: Patient has chronic kidney disease. This is from hypertension. He has a baseline creatinine of around 1.5. He has acute kidney injury. Renal ultrasound is okay. Urine electrolytes are substantially pre renal. Urine eosinophils are pending His creatinine is a little bit worse. I will give him a little bit of fluid. I do want to give him too much because of the pulmonary situation but his creatinine is worsening and I suspect dehydration is a large part of this. He is getting supportive care, Dexamethasone. (2) COVID-19: Code(s): U07.1 - COVID-19 Status: Acute Assessment and Plan: The patient has COVID-19. He is getting supportive care. He is on dexamethasone (3) Acute hypoxemic respiratory failure: Code(s): J96.01 - Acute respiratory failure with hypoxia Status: Acute Assessment and Plan: Chest x-ray shows some Infiltrates from the COVID-19. The patient is on some oxygen now. (4) Gastro-esophageal reflux disease without esophagitis: Code(s): K21.9 - Gastro-esophageal reflux disease without esophagitis Status: Acute Assessment and Plan: The patient is on omeprazole at home. Will switch to famotidine. (5) Anemia: Code(s): D64.9 - Anemia, unspecified Status: Acute Assessment and Plan: This is mild. No need for EPO. (6) YUDY (obstructive sleep apnea): Code(s): G47.33 - Obstructive sleep apnea (adult) (pediatric) Status: Acute Subjective Date/time seen: 06/04/20 12:19 Interval history: Patient is feeling about the same. Oxygen requirements have increased. Now on 15L of oxygen to maintain his sats. He denies shortness of breath. He is extremely frustrated. He thought he would be getting out of the hospital by today. We discussed at length how JV moves very slowly and his trend is in a negative direction unfortunately. His work says that he may not have a job when he comes back. His TV in the room is not working and he is a huge [employer] fan and there were 3 play off games today. I tried to fix the TV and it did not work. I called nursing and they are going to switch the input for the TV and then call maintenance if it does not work. Review of Systems Cardiovascular: Cardiovascular: Reports no additional cardiovascular complaints Respiratory: Respiratory: Reports no additional respiratory complaints Gastrointestinal: Gastrointestinal: Reports no additional gastrointestinal complaints Genitourinary: Genitourinary: Reports no additional male genitourinary complaints Exam Narrative: Exam Narrative: WDWN in NAD skin no rash head ncat lungs decreased breath sounds at the base cor reg no rub abd BS+ nontender and soft ext no edema. Objective Data Vital Signs Vital Signs: Vital Signs - 24 hr 06/03/20 14:00 06/03/20 16:00 06/03/20 18:00 Temperature 36.1 C L Pulse Rate 77 75 85 Respiratory Rate 18 Blood Pressure 84/54 L Pulse Oximetry 86 L 06/03/20 20:00 06/03/20 22:00 06/04/20 00:00 Temperature 37.1 C 36.6 C Pulse Rate 76 66 73 Respiratory Rate 24 H 22 H Blood Pressure 110/80 92/63 L Pulse Oximetry 99 94 06/04/20 02:00 06/04/20 04:00 06/04/20 06:00 Temperature 35.9 C L Pulse Rate 69 85 76 Respiratory Rate 24 H Blood Pressure 96/66 L Pulse Oximetry 93 06/04/20 08:00 06/04/20 09:40 06/04/20 09:59 Temperature 37.1 C Pulse Rate 75 77 86 Respiratory Rate 22 H 20 18 Blood Pressure 106/62 Pulse Oximetry 97 Intake/Output Intake/Output: Intake & Output 06/01/20 06/02/20 06/03/20 06/04/20 23:59 23:59 23:59 23:59 Intake Total 2200 370 Output Total 925 Balance 2200 -555 Meds/Results Medications: Ac
[2020-06-04] MEDS: DEXTROSE 5%/0.45% SOD CHL 1,000 ML 100 ML IV CONT (13:55)
--- NOTE | 2020-06-04 15:50 | PM.IMPN ---
Progress Note: A&P Assessment and Plan (1) Acute hypoxemic respiratory failure: Code(s): J96.01 - Acute respiratory failure with hypoxia Status: Acute Assessment and Plan: Currently on high flow by NC ABG with improved PO2 Continue supplemental O2 O2 sat goal of 94% (2) Acute on chronic renal insufficiency: Code(s): N28.9 - Disorder of kidney and ureter, unspecified; N18.9 - Chronic kidney disease, unspecified Status: Acute Assessment and Plan: Trending Bun/Cr Slightly higher today Appreciate Nephrology note Agree with gentle hydration (3) Gastro-esophageal reflux disease without esophagitis: Code(s): K21.9 - Gastro-esophageal reflux disease without esophagitis Status: Acute Assessment and Plan: Continue PPI (4) YUDY (obstructive sleep apnea): Code(s): G47.33 - Obstructive sleep apnea (adult) (pediatric) Status: Acute Assessment and Plan: Unclear if uses CPAP at night time. Subjective Date/time seen: 06/04/20 15:50 Patient states that he is feeling fine and wants to go home. No new issues overnight. Afebrile However still requiring high flow Review of Systems Review of Systems: Narrative: Patient denies any discomfort. Exam Narrative: Exam Narrative: Patient is lying in bed on high flow by NC and non rebreather. Const: General: comfortable, no acute distress, alert, awake, Physically active and ill appearing Nutritional Appearance: average body habitus Orientation/consciousness: patient oriented x3 Limitations: no limitations HENMT: Head: normal to inspection and normocephalic Ears: hearing grossly normal bilaterally General nose exam: Normal external nose present Face and sinus: normal facial exam Eyes: General: appearance normal, both eyes and all related structures Pupils: Equal, round and reactive pupils present EOM: EOMs intact bilaterally Neck: Neck: no lymphadenopathy, supple and no JVD Resp: Effort & Inspection: normal respiratory effort and able to speak in complete sentences Auscultation: clear to auscultation bilaterally and diminished lung sounds Cardio: Rate: regular rate Rhythm: regular rhythm GI: GI Palp: Yes Soft to palpation and Yes No hepatosplenomegaly present Skin: General skin exam: normal color Lesions: no lesions Wounds: no wounds Neuro: General: patient oriented x3 and CN's II-XI intact bilaterally Cranial nerves: Yes CN's II-XII intact bilaterally and Yes Equal, round and reactive pupils present Cognition (Neuro): normal cognition Speech: normal speech Motor exam (neuro): 5/5 motor strength present throughout Extrem: General: no pedal edema Objective Data Vital Signs Vital Signs: Vital Signs - 24 hr 06/03/20 16:00 06/03/20 18:00 06/03/20 20:00 Temperature 97 F L 98.8 F Pulse Rate 75 85 76 Respiratory Rate 18 24 H Blood Pressure 84/54 L 110/80 Pulse Oximetry 86 L 99 06/03/20 22:00 06/04/20 00:00 06/04/20 02:00 Temperature 97.8 F Pulse Rate 66 73 69 Respiratory Rate 22 H Blood Pressure 92/63 L Pulse Oximetry 94 06/04/20 04:00 06/04/20 06:00 06/04/20 08:00 Temperature 96.7 F L 98.8 F Pulse Rate 85 76 74 Respiratory Rate 24 H 22 H Blood Pressure 96/66 L 106/62 Pulse Oximetry 93 95 06/04/20 09:40 06/04/20 09:59 06/04/20 10:00 Temperature Pulse Rate 77 86 80 Respiratory Rate 20 18 Blood Pressure Pulse Oximetry 06/04/20 12:00 06/04/20 13:13 06/04/20 13:25 Temperature 98.4 F Pulse Rate 82 84 87 Respiratory Rate 22 H 20 20 Blood Pressure 106/70 Pulse Oximetry 97 06/04/20 14:00 Temperature Pulse Rate 84 Respiratory Rate Blood Pressure Pulse Oximetry Intake/Output Intake/Output: Intake & Output 06/01/20 06/02/20 06/03/20 06/04/20 23:59 23:59 23:59 23:59 Intake Total 2200 370 Output Total 925 Balance 2200 -352 Meds/Results Medications: Active Medications Generic Name Dose Route Start Last Adm
[2020-06-04] MEDS: SODIUM BICARBONATE TAB 650 MG TABLET 1300 MG PO (18:09)
[2020-06-04] MEDS: WATER FOR IRRIGATION, STERILE 1,000 ML BOTTLE 1000 ML (18:20)
[2020-06-04] MEDS: FAMOTIDINE 20 MG TABLET PO (22:59)
[2020-06-05] VITALS (35 sets, daily range): BP systolic 83–157; BP diastolic 53–98; PULSE 66–128; RESP 15–32; TEMP 36.1–36.8; O2SAT 85–100
[2020-06-05] MEDS: ALBUTEROL SULFATE NEB 2.5 MG/0.5 ML INH INHALATION ×6 (03:32→23:09)
[2020-06-05 05:47] LABS: Albumin Level 3.2 g/dL (3.5-5.1); Anion Gap 12 mmol/L (8-16); Blood Urea Nitrogen 83 mg/dL (9-20); Calcium 8.7 mg/dL (8.4-10.2); Carbon Dioxide 20 mmol/L (22-30); Chloride 108 mmol/L (98-107); Estimated CRCL calculation 25 ml/min; Estimated Glomerular Filt Rate 16; Glucose 117 mg/dL (75-110); Phosphorus 5.3 mg/dL (2.5-4.5); Potassium 4.1 mmol/L (3.4-5.0); Sodium 140 mmol/L (137-145)
[2020-06-05 07:55] LABS: Basophils Percent Auto 0.1 % (0.2-1.2); Hematocrit 36.9 % (42.0-52.0); Hemoglobin 12.7 g/dL (14.0-18.0); Immature Granulocyte Absolute 0.05 K/mm3 (0.00-0.031); Immature Granulocyte Percent A 0.6 % (0-0.5); Lymphocytes Absolute Auto 0.35 K/mm3 (0.9-3.2); Lymphocytes Percent Auto 3.9 % (18.3-44.2); Mean Corpuscular HGB Conc 34.4 g/dl (32-36); Mean Corpuscular Hemoglobin 30.5 pg (26-34); Mean Corpuscular Volume 88.5 fl (80-100); Monocytes Absolute Auto 0.5 K/mm3 (0.1-0.6); Monocytes Percent Auto 5.7 % (2.6-8.5); Neutrophils Percent Auto 89.7 % (45.5-73.1); Platelet Count Result 207 k/mm3 (150-375); Red Blood Count 4.17 M/mm3 (4.6-6.20); Red Cell Distribution Width 13.3 % (11.5-14.5); White Blood Count 8.9 K/mm3 (4.5-10.0)
[2020-06-05 08:04] LABS: Alveolar/Arterial O2 Gradient 605.1 mmHg; Base Excess ABG -7.2 mEq/l (+/-2.0); Device NON-REBREATHER MASK; Fractional Inspired Oxygen 100 %; HCO3 ABG 16.6 mEq/l (22.0-26.0); Modified Allen's Test Pass; Oxygen Content ABG 18.8 %vol (16.0-22.0); Oxygen Saturation ABG 95.5 % (95.0-100.0); Oxyhemoglobin 94.1 % THb (90.0-100.0); PCO2 ABG 29.3 mmHg (35.0-45.0); PO2 ABG 78.6 mmHg (80.0-100.0); PO2 FiO2 Ratio Arterial Blood 0.79 %; Site Drawn RIGHT RADIAL; Total Hemoglobin 14.2 g/dL (12.0-18.0); pH ABG 7.372 (7.350-7.450)
[2020-06-05 08:41] LABS: Anion Gap 9 mmol/L (8-16); Blood Urea Nitrogen 80 mg/dL (9-20); Calcium 8.9 mg/dL (8.4-10.2); Carbon Dioxide 22 mmol/L (22-30); Chloride 108 mmol/L (98-107); Estimated CRCL calculation 26 ml/min; Estimated Glomerular Filt Rate 17; Glucose 111 mg/dL (75-110); Potassium 4.2 mmol/L (3.4-5.0); Sodium 139 mmol/L (137-145)
[2020-06-05] MEDS: DEXAMETHASONE SOD PHOS INJ 4 MG/ML VIAL 6 MG IV PUSH (08:41)
[2020-06-05] MEDS: SODIUM BICARBONATE TAB 650 MG TABLET 1300 MG PO (08:41)
[2020-06-05] MEDS: FAMOTIDINE 20 MG TABLET PO ×2 (08:41→20:36)
--- NOTE | 2020-06-05 09:19 | PC.NURSE ---
[place]ot[place] [address]04 under Katerine Chiang. Actually administered by Nano Castelan.
[2020-06-05] MEDS: LORazepam INJ (*CRX) 2 MG/ML VIAL 0.5 MG IV PUSH (10:45)
--- NOTE | 2020-06-05 11:44 | PM.PNNEP ---
Progress Note: A&P Assessment and Plan (1) Acute on chronic renal insufficiency: Code(s): N28.9 - Disorder of kidney and ureter, unspecified; N18.9 - Chronic kidney disease, unspecified Status: Acute Assessment and Plan: Patient has chronic kidney disease. This is from hypertension. He has a baseline creatinine of around 1.5. He has acute kidney injury. Renal ultrasound is okay. Urine electrolytes are substantially pre renal. Urine eosinophils are pending He received a small amount of IV fluids yesterday. He ate some yesterday as well. His creatinine is a little bit Better today. Will follow without more IV fluids. I am still concerned about making the lung water worse. (2) COVID-19: Code(s): U07.1 - COVID-19 Status: Acute Assessment and Plan: The patient has COVID-19. He is getting supportive care. He is on dexamethasone He has deteriorated some since yesterday. (3) Acute hypoxemic respiratory failure: Code(s): J96.01 - Acute respiratory failure with hypoxia Status: Acute Assessment and Plan: Chest x-ray shows some Infiltrates from the COVID-19. The patient is on BiPAP now. (4) Gastro-esophageal reflux disease without esophagitis: Code(s): K21.9 - Gastro-esophageal reflux disease without esophagitis Status: Acute Assessment and Plan: The patient is on omeprazole at home. Will switch to famotidine. (5) Anemia: Code(s): D64.9 - Anemia, unspecified Status: Acute Assessment and Plan: This is mild. No need for EPO. (6) YUDY (obstructive sleep apnea): Code(s): G47.33 - Obstructive sleep apnea (adult) (pediatric) Status: Acute Subjective Date/time seen: 06/05/20 11:44 Interval history: Patient was seen at around 10:30 a.m. Patient is Anxious and confused. He is agitated and keeps taking his oxygen off. He desaturates when his oxygen is off. He was advanced to a BiPAP machine. He still still continue to try to take his mask off and so he was given some Ativan but he is still very anxious. Difficult to get him to focus. Review of Systems Review of Systems: ROS unobtainable: Yes unobtainable due to medical condition Exam Narrative: Exam Narrative: WDWN in NAD skin no rash head ncat lungs decreased breath sounds at the base cor reg no rub abd BS+ nontender and soft ext no edema. Objective Data Vital Signs Vital Signs: Vital Signs - 24 hr 06/04/20 12:00 06/04/20 13:13 06/04/20 13:25 Temperature 36.9 C Pulse Rate 82 84 87 Respiratory Rate 22 H 20 20 Blood Pressure 106/70 Pulse Oximetry 97 06/04/20 14:00 06/04/20 16:00 06/04/20 16:59 Temperature 36.9 C Pulse Rate 84 79 77 Respiratory Rate 20 20 Blood Pressure 99/61 L Pulse Oximetry 97 06/04/20 17:09 06/04/20 18:00 06/04/20 20:00 Temperature 36.4 C L Pulse Rate 81 72 75 Respiratory Rate 20 22 H Blood Pressure 95/63 L Pulse Oximetry 91 06/04/20 20:23 06/04/20 20:33 06/04/20 22:00 Temperature Pulse Rate 79 83 70 Respiratory Rate 20 20 Blood Pressure Pulse Oximetry 06/04/20 22:30 06/04/20 23:32 06/04/20 23:42 Temperature Pulse Rate 75 80 Respiratory Rate 20 20 Blood Pressure Pulse Oximetry 91 06/05/20 00:00 06/05/20 02:00 06/05/20 03:33 Temperature 36.4 C L Pulse Rate 79 71 78 Respiratory Rate 24 H 20 Blood Pressure 106/61 Pulse Oximetry 91 06/05/20 04:00 06/05/20 06:00 06/05/20 07:18 Temperature 36.8 C 36.4 C Pulse Rate 77 74 85 Respiratory Rate 22 H 22 H Blood Pressure 114/67 126/65 Pulse Oximetry 90 97 06/05/20 08:00 06/05/20 08:55 06/05/20 09:10 Temperature Pulse Rate 93 88 Respiratory Rate 31 H 25 H Blood Pressure Pulse Oximetry 92 100 Intake/Output Intake/Output: Intake & Output 06/02/20 06/03/20 06/04/20 06/05/20 23:59 23:59 23:59 23:59 Intake Total 2200 790 740 Output
[2020-06-05] MEDS: PROPOFOL IV EMULSION 100 ML 14.32 MG IV CONT (11:45)
--- NOTE | 2020-06-05 11:45 | PM.IMPN ---
Progress Note: A&P Assessment and Plan (1) COVID-19: Code(s): U07.1 - COVID-19 Status: Acute Assessment and Plan: Not started on Remdesivir due to renal failure Dexamethasone Breathing treatments. (2) Acute hypoxemic respiratory failure: Code(s): J96.01 - Acute respiratory failure with hypoxia Status: Acute Assessment and Plan: Now on ventilator As was mental status was deteriorating Appreciate Int/CC input. (3) Acute on chronic renal insufficiency: Code(s): N28.9 - Disorder of kidney and ureter, unspecified; N18.9 - Chronic kidney disease, unspecified Status: Acute Assessment and Plan: Bun/Cr trending down Likely to be pre renal Continue to monitor I/O's strict Appreciate Nephrology note (4) Gastro-esophageal reflux disease without esophagitis: Code(s): K21.9 - Gastro-esophageal reflux disease without esophagitis Status: Acute Assessment and Plan: PPI Stable. (5) YUDY (obstructive sleep apnea): Code(s): G47.33 - Obstructive sleep apnea (adult) (pediatric) Status: Acute Assessment and Plan: Now on ventilator support. Subjective Date/time seen: 06/05/20 11:45 Patient still wanting to go home. No new issues overnight. Still requiring high oxygen demands at 15 liters. Review of Systems Review of Systems: Narrative: Unable to obtain a thorough review as patient is requiring high oxygen. Exam Narrative: Exam Narrative: Patient is lying in bed oxygen on. Const: General: alert, anxious, combative and ill appearing Nutritional Appearance: average body habitus Orientation/consciousness: oriented to person and confusion Limitations: altered mental status HENMT: Head: normal to inspection and normocephalic Face and sinus: normal facial exam Eyes: General: appearance normal, both eyes and all related structures Pupils: Equal, round and reactive pupils present EOM: EOMs intact bilaterally Neck: Neck: no lymphadenopathy, supple and no JVD Resp: Auscultation: wheezes and diminished lung sounds Cardio: Jugular venous distension: no JVD Rate: tachycardic GI: Inspection: Pannus present GI Palp: Yes Soft to palpation and Yes No hepatosplenomegaly present Auscultation: normal bowel sounds Skin: General skin exam: pallor Rashes: other (Intertrigo) Wounds: no wounds Neuro: General: oriented to person, no focal motor deficits and CN's II-XI intact bilaterally Cranial nerves: Yes Equal, round and reactive pupils present Objective Data Vital Signs Vital Signs: Vital Signs - 24 hr 06/04/20 12:00 06/04/20 13:13 06/04/20 13:25 Temperature 98.4 F Pulse Rate 82 84 87 Respiratory Rate 22 H 20 20 Blood Pressure 106/70 Pulse Oximetry 97 06/04/20 14:00 06/04/20 16:00 06/04/20 16:59 Temperature 98.4 F Pulse Rate 84 79 77 Respiratory Rate 20 20 Blood Pressure 99/61 L Pulse Oximetry 97 06/04/20 17:09 06/04/20 18:00 06/04/20 20:00 Temperature 97.5 F L Pulse Rate 81 72 75 Respiratory Rate 20 22 H Blood Pressure 95/63 L Pulse Oximetry 91 06/04/20 20:23 06/04/20 20:33 06/04/20 22:00 Temperature Pulse Rate 79 83 70 Respiratory Rate 20 20 Blood Pressure Pulse Oximetry 06/04/20 22:30 06/04/20 23:32 06/04/20 23:42 Temperature Pulse Rate 75 80 Respiratory Rate 20 20 Blood Pressure Pulse Oximetry 91 06/05/20 00:00 06/05/20 02:00 06/05/20 03:33 Temperature 97.5 F L Pulse Rate 79 71 78 Respiratory Rate 24 H 20 Blood Pressure 106/61 Pulse Oximetry 91 06/05/20 04:00 06/05/20 06:00 06/05/20 07:18 Temperature 98.2 F 97.6 F Pulse Rate 77 74 85 Respiratory Rate 22 H 22 H Blood Pressure 114/67 126/65 Pulse Oximetry 90 97 06/05/20 08:00 06/05/20 08:55 06/05/20 09:10 Temperature Pulse Rate 93 88 Respiratory Rate 31 H 25 H Blood Pressure Pulse Oximetry 92 100 Intake/Output Intake/Output: Intake & Output 06/02/20
--- NOTE | 2020-06-05 12:42 | WPDCNINT ---
Assessment and Plan Assessment and plan (1) Acute hypoxemic respiratory failure: Code(s): J96.01 - Acute respiratory failure with hypoxia Status: Acute Assessment and Plan: Acute hypoxemic respiratory failure likely related COVID-19 pneumonia -patient presented the hospital on 06/03/2019 and was intubated on 06/05/2019 after failing BiPAP and high-flow therapy -chest x-ray post intubation shows worsening bilateral infiltrates -will obtain ABG post intubation -low tidal volume strategy to prevent barotrauma and volume trauma. CMV mode of ventilation, tidal volume 450, rate of 24, peep of 10 and 100% FiO2. Will adjust after ABGs - continue bronchodilators -sedated with propofol (2) COVID-19: Code(s): U07.1 - COVID-19 Status: Acute Assessment and Plan: COVID-19 -results positive 06/03/2020 -patient started on dexamethasone on 06/04/2020 -not a candidate for Remdesivir due to acute on chronic renal failure -will give a unit of convalescent plasma -continue droplet, airborne and contact isolation/precautions -will obtain inflammatory markers and trend (3) Acute on chronic renal insufficiency: Code(s): N28.9 - Disorder of kidney and ureter, unspecified; N18.9 - Chronic kidney disease, unspecified Status: Acute Assessment and Plan: Acute on chronic kidney disease likely related to hypertension, prerenal, COVID-19 -nephrology following the patient -obtain renal ultrasound -patient now has a Aponte catheter, will continue monitor urine output, electrolytes and renal function (4) Agitation: Code(s): R45.1 - Restlessness and agitation Status: Acute Assessment and Plan: Patient was agitated this morning pulling at the BiPAP, high-flow nasal cannula, his gown, his leads, patient was confused and agitated -will obtain CT head to rule out any intracranial abnormality -this could be related to hypoxemia (5) DVT prophylaxis: Code(s): Z29.9 - Encounter for prophylactic measures, unspecified Status: Acute Assessment and Plan: Lovenox 40 mg SQ q.12 hours (6) Dietary counseling and surveillance: Code(s): Z71.3 - Dietary counseling and surveillance Status: Acute Assessment and Plan: NPO for now Stress ulcer prophylaxis: Proton Additional Plan Discussed with Carrie and updated with patient's condition and plan of care. I discussed with her prior to intubation and also after intubation. I did discuss with her that he is on the dexamethasone, I will give him convalescent plasma but will not do Remdesivir due to kidney dysfunction and acute kidney injury. Answered all questions Code status: Full code Critical care time spent: 49 minutes Due to a high probability of clinically significant, life threatening deterioration, the patient required my highest level of preparedness to intervene emergently and I personally spent this critical care time directly and personally managing the patient. This critical care time included obtaining a history; examining the patient; pulse oximetry; ordering and review of studies; arranging urgent treatment with development of a management plan; evaluation of patient's response to treatment; frequent reassessment; and discussions with other providers. It was exclusive of separately billable procedures and treating other patients and teaching time. Please see Assessment and Plan section and the rest of the note for further information on patient assessment and treatment [employer] Signal Installer Consult Note Consult date: 06/05/20 Time Seen: 10:38 Reason for consult: COVID-19 pneumonia, acute hypoxic respiratory failure -intubated on 06/05/2020 HPI: Ernie Heath is a 60 year old male with past medical history of anemia, GERD, pancreatitis, history of diverticulitis, diabetes, essential hypertension, chronic abdominal pain presented the ED on 06/03/2020 with not feeling well. He had been in usual state of health
--- NOTE | 2020-06-05 13:08 | WPDPROCEDUR ---
Procedures Intubation Intubation Date: 06/05/20 Intubation Time: 11:41 A pre-procedural Time-Out was completed immediately before starting the procedure and confirmed: Patient Identification, Site, Procedure, Patient Position and the Availability of Requisite Equipment: Yes Sedative: etomidate Paralytic: rocuronium Laryngoscope: fiber optic video scope Assist device used: fiber optic device ET tube size: 8 Tube secured depth (cm): 24 Tube secured location: lips Tube placement confirmation: visualized tube passing through cords, equal breath sounds bilaterally, no breath sounds over epigastrium and confirmation by capnometry Patient tolerated procedure: well Intubation complications: none
[2020-06-05 13:17] LABS: Alveolar/Arterial O2 Gradient 605.6 mmHg; Base Excess ABG -8.7 mEq/l (+/-2.0); Fractional Inspired Oxygen 100 %; HCO3 ABG 18.2 mEq/l (22.0-26.0); Oxygen Content ABG 17.3 %vol (16.0-22.0); Oxygen Saturation ABG 89.4 % (95.0-100.0); Oxyhemoglobin 89.1 % THb (90.0-100.0); PCO2 ABG 42.6 mmHg (35.0-45.0); PO2 ABG 64.8 mmHg (80.0-100.0); PO2 FiO2 Ratio Arterial Blood 0.65 %; Total Hemoglobin 13.8 g/dL (12.0-18.0); pH ABG 7.249 (7.350-7.450)
[2020-06-05 13:18] LABS: Arterial Blood Gas PEEP 10 cmH2O; Arterial Blood Gas Tidal Volume 450 ml; Arterial Blood Gas Vent Mode ASSIST CONTROL; Arterial Blood Gas Ventilator rate 24 /MIN; Device VENTILATOR; Modified Allen's Test Pass; Site Drawn RIGHT RADIAL
[2020-06-05] MEDS: MIDAZOLAM HCL (*CRX) 2 MG/2 ML VIAL IV PUSH (14:13)
[2020-06-05] MEDS: PROPOFOL IV EMULSION 100 ML 35.79 MG IV CONT (14:27)
[2020-06-05] MEDS: MIDAZOLAM HCL (*CRX) 2 MG/2 ML VIAL (14:50)
[2020-06-05] MEDS: fentaNYL CITRATE INJ (*CRX) 100 MCG/2 ML VIAL (14:54)
[2020-06-05] MEDS: FENTANYL 2,500MCG/NS250ML(*CRX 2,500 MCG/250 ML BAG IV CONT (14:58)
--- NOTE | 2020-06-05 15:25 | PC.NURSE ---
This patient, Ernie Heath, was transferred to [ icu ] on 06/05/20 at 1300 Personal belongings sent with patient. Report given to [[email or web address] garcia rn]. Appropriate documentation sent with patient.
[2020-06-05] MEDS: SODIUM CHLORIDE 0.9% IV 250 ML 100 ML IV CONT (20:35)
[2020-06-05] MEDS: ENOXAPARIN 40 MG/0.4 ML SYRINGE SUB-Q (20:36)
[2020-06-06] VITALS (39 sets, daily range): BP systolic 90–117; BP diastolic 57–80; PULSE 63–89; RESP 14–32; TEMP 35.6–36.9; O2SAT 88–98; BMI 35.6
[2020-06-06] MEDS: ALBUTEROL SULFATE NEB 2.5 MG/0.5 ML INH INHALATION ×6 (04:29→23:07)
[2020-06-06 05:03] LABS: Alveolar/Arterial O2 Gradient 623.6 mmHg; Base Excess ABG -7.3 mEq/l (+/-2.0); Carboxyhemoglobin 0.3 % THb (0-2.0); Fractional Inspired Oxygen 100 %; HCO3 ABG 18.1 mEq/l (22.0-26.0); Methemoglobin ABG 0.3 %THb (0-1.5); Oxygen Content ABG 15.2 %vol (16.0-22.0); Oxyhemoglobin 84.5 % THb (90.0-100.0); PCO2 ABG 36.4 mmHg (35.0-45.0); PO2 FiO2 Ratio Arterial Blood 0.53 %; Reduced Hemoglobin 14.9 %THb (0-5.0); Total Hemoglobin 12.8 g/dL (12.0-18.0); pH ABG 7.314 (7.350-7.450)
[2020-06-06 05:04] LABS: Device VENTILATOR; Modified Allen's Test Unable to perform; Oxygen Saturation ABG 84.9 % (95.0-100.0); Site Drawn RIGHT RADIAL
[2020-06-06 05:05] LABS: Arterial Blood Gas PEEP 10 cmH2O; Arterial Blood Gas Tidal Volume 450 ml; Arterial Blood Gas Vent Mode ASSIST CONTROL; Arterial Blood Gas Ventilator rate 24 /MIN
[2020-06-06 06:28] LABS: Glucose Point of Care 143 (65-105)
[2020-06-06 06:35] LABS: Albumin Level 2.9 g/dL (3.5-5.1); Anion Gap 6 mmol/L (8-16); Blood Urea Nitrogen 80 mg/dL (9-20); Calcium 8.7 mg/dL (8.4-10.2); Carbon Dioxide 22 mmol/L (22-30); Chloride 112 mmol/L (98-107); Estimated CRCL calculation 29 ml/min; Estimated Glomerular Filt Rate 19; Glucose 140 mg/dL (75-110); Potassium 4.3 mmol/L (3.4-5.0); Sodium 140 mmol/L (137-145)
[2020-06-06] MEDS: DEXAMETHASONE SOD PHOS INJ 4 MG/ML VIAL 6 MG IV PUSH (09:06)
[2020-06-06] MEDS: ENOXAPARIN 40 MG/0.4 ML SYRINGE SUB-Q ×2 (09:07→20:49)
[2020-06-06] MEDS: FAMOTIDINE 20 MG TABLET PO (09:07)
[2020-06-06] MEDS: PANTOPRAZOLE SODIUM IV 40 MG VIAL IV PUSH (09:08)
[2020-06-06] MEDS: SODIUM BICARBONATE TAB 650 MG TABLET 1300 MG PO ×2 (09:08→16:38)
[2020-06-06] MEDS: LIDOCAINE HCL 1% LOCAL INJ 2 ML AMPUL 5 ML INFILTRATE (11:30)
--- NOTE | 2020-06-06 11:52 | WPDINTPN ---
Progress Note: A&P Assessment and Plan (1) Acute hypoxemic respiratory failure: Code(s): J96.01 - Acute respiratory failure with hypoxia Status: Acute Assessment and Plan: Acute hypoxemic respiratory failure likely related COVID-19 pneumonia -patient presented the hospital on 06/03/2019 and was intubated on 06/05/2019 after failing BiPAP and high-flow therapy -chest x-ray post intubation and ABG reviewed -low tidal volume strategy to prevent barotrauma and volume trauma. CMV mode of ventilation peep of 12 and 100% FiO2. - continue bronchodilators -Rocephin and azithromycin -will try prone ventilation (2) COVID-19: Code(s): U07.1 - COVID-19 Status: Acute Assessment and Plan: COVID-19 -results positive 06/03/2020 -patient started on dexamethasone on 06/04/2020 -not a candidate for Remdesivir due to acute on chronic renal failure -received a unit of convalescent plasma 06/05 -continue droplet, airborne and contact isolation/precautions -will obtain inflammatory markers and trend (3) Acute on chronic renal insufficiency: Code(s): N28.9 - Disorder of kidney and ureter, unspecified; N18.9 - Chronic kidney disease, unspecified Status: Acute Assessment and Plan: Acute on chronic kidney disease likely related to hypertension, prerenal, COVID-19 -nephrology following the patient -renal ultrasound was unremarkable -patient now has a Aponte catheter, will continue monitor urine output, electrolytes and renal function -creatinine improving (4) Agitation: Code(s): R45.1 - Restlessness and agitation Status: Acute Assessment and Plan: Currently sedated Head CT pending (5) DVT prophylaxis: Code(s): Z29.9 - Encounter for prophylactic measures, unspecified Status: Acute Assessment and Plan: Lovenox 40 mg SQ q.12 hours (6) Dietary counseling and surveillance: Code(s): Z71.3 - Dietary counseling and surveillance Status: Acute Assessment and Plan: Start tube feeds today Stress ulcer prophylaxis: Protonix Additional Plan Code status: Full code Critical care time spent: 33 minutes Due to a high probability of clinically significant, life threatening deterioration, the patient required my highest level of preparedness to intervene emergently and I personally spent this critical care time directly and personally managing the patient. This critical care time included obtaining a history; examining the patient; pulse oximetry; ordering and review of studies; arranging urgent treatment with development of a management plan; evaluation of patient's response to treatment; frequent reassessment; and discussions with other providers. It was exclusive of separately billable procedures and treating other patients and teaching time. Please see Assessment and Plan section and the rest of the note for further information on patient assessment and treatment Subjective Date/time seen: 06/06/20 Overnight events reviewed. Afebrile Continues to be on mechanical ventilation Continues to be on sedation with Versed and fentanyl Vitals acceptable Interval history: 06/05 intubated Review of Systems Review of Systems: ROS unobtainable: Yes unobtainable due to endotracheal tube Exam Const: General: comfortable and no acute distress HENMT: Other: ETT in place Eyes: Sclera: sclerae normal Pupils: Equal, round and reactive pupils present Neck: Neck: supple Resp: Effort & Inspection: normal respiratory effort Auscultation: rales and diminished lung sounds Other: Coarse breath sounds bilaterally Cardio: Rate: regular rate Rhythm: regular rhythm GI: Inspection: non-distended Auscultation: normal bowel sounds : Other: Aponte catheter in place Urinary Catheter: Urinary Catheter: patent and draining and urine clear Skin: General skin exam: normal color and no rashes or lesions noted Neuro: Cranial nerves: Yes Equal, round
--- NOTE | 2020-06-06 12:58 | PM.PNNEP ---
Progress Note: A&P Assessment and Plan (1) SUPA (acute kidney injury): Code(s): N17.9 - Acute kidney failure, unspecified Status: Acute Assessment and Plan: presumably due to acute illness and COVID-19 evaluation to date demonstrates pre-renal urine electrolytes and normal renal ultrasound unremarkable no critical electrolytes and making some urine follow trend of repeat labs and urine output (2) Stage 3a chronic kidney disease: Code(s): N18.31 - Chronic kidney disease, stage 3a Status: Chronic Assessment and Plan: baseline creatinine runs around 1.5mg/dl this is likely secondary to hypertension (3) COVID-19: Code(s): U07.1 - COVID-19 Status: Acute Assessment and Plan: as noted by positive testing on steroids continue supportive therapy (4) Acute hypoxemic respiratory failure: Code(s): J96.01 - Acute respiratory failure with hypoxia Status: Acute Assessment and Plan: chest x-ray shows findings consistent with COVID-19 currently intubated and on mechanical ventilation (5) Anemia: Code(s): D64.9 - Anemia, unspecified Status: Acute Assessment and Plan: mild at this time probably related to acute illness, SUPA, and CKD follow trend of H/H (6) YUDY (obstructive sleep apnea): Code(s): G47.33 - Obstructive sleep apnea (adult) (pediatric) Status: Chronic Assessment and Plan: likely complicate this respiratory failure on ventilator support now Will continue to follow. Subjective Date/time seen: 06/06/20 12:58 Chart reviewed and events noted in the last 24 hours -- transferred to ICU for intubation and mechanical ventilation; remains on ventilator support but hemodynamically stable; no acute events overnight or earlier this AM; still making some urine with no critical electrolytes noted by AM labs. Exam Narrative: Exam Narrative: General: WD/WN male intubated/on ventilator Heart: normal S1 and S2; no rub Lungs: coarse breath sounds throughout Abdomen: soft, nontender, nondistended, positive bowel sounds Extremities: no cyanosis or clubbing; no edema Skin: warm and dry Objective Data Vital Signs Vital Signs: Vital Signs Temp Pulse Resp BP Pulse Ox 06/06/20 12:00 35.9 C L 72 25 H 112/73 95 06/06/20 11:52 72 21 H 06/06/20 10:40 67 92 06/06/20 10:00 68 17 90/59 L 92 06/06/20 08:02 69 24 H 92 06/06/20 08:00 35.6 C L 69 18 98/63 L 92 06/06/20 06:30 72 24 H 06/06/20 06:00 68 24 H 101/57 L 97 06/06/20 05:30 67 24 H 06/06/20 04:31 71 93 06/06/20 04:30 76 32 H 06/06/20 04:00 36.9 C 75 24 H 95/80 L 92 06/06/20 02:00 73 24 H 110/65 91 06/06/20 01:55 68 92 06/06/20 00:00 36.4 C 67 24 H 106/66 95 06/05/20 23:12 68 92 06/05/20 23:09 68 25 H 06/05/20 22:30 36.6 C 67 24 H 109/59 L 93 06/05/20 21:42 36.4 C 70 24 H 90/53 L 90 06/05/20 20:42 36.8 C 75 15 88/53 L 90 06/05/20 20:17 36.8 C 70 16 83/60 L 96 06/05/20 19:57 66 25 H 94 Intake/Output Intake/Output: Intake & Output 06/03/20 06/04/20 06/05/20 06/06/20 23:59 23:59 23:59 23:59 Intake Total 2200 790 1345 960 Output Total 1500 1400 1550 Balance 2202 -710 -55 -590 Meds/Results Medications: Active Medications Generic Name Dose Route Start Last Admin Trade Name Freq PRN Reason Stop Dose Admin Albuterol 2.5 mg 06/04/20 12:00 06/06/20 17:03 Albuterol Sulfate Neb 2.5 Mg/0.5 Ml Inh INHALATION 2.5 mg Q4HRT EMANUEL Administration Dexamethasone Sodium Phosphate 6 mg 06/04/20 09:00 06/06/20 09:06 Dexamethasone Sod Phos Inj 4 Mg/Ml Vial IV PUSH 06/13/20 09:01 6 mg DAILY EMANUEL Administration Enoxaparin Sodium 40 mg 06/05/20 21:00 06/06/20 09:07 Enoxaparin 40 Mg/0.4 Ml Syringe SUB-Q 40 mg Q12HR EMANUEL Administration Ceftriaxone Sodium/Dextrose 1 gm in 50 mls @ 100 mls/
--- NOTE | 2020-06-06 13:13 | PCDIET ---
Nutrition Follow-Up Complete: Nutrition Diagnosis: Involuntary weight loss related to decreased appetite as evidenced by reported and documented weight loss of 4% x 2 weeks. Nutrition Goal: Patient to consume 75% of meals/supplements or greater. Goal not met. Patient intubated with new tube feeding order for Nepro at 40mL/hr goal rate. Recommend ultimate goal of 50mL/hr for 1980kcal and 89g protein daily (over 22 hours/day). New Goal: Patient to meet estimated nutritional needs. Last recorded weight is 119.3 kg which is increased from last review. -I/O. Bowel Motility: BM x 2 on 06/03/20. Labs Reviewed: Hgb (12.7), Hct (36.9), Glu (140), BUN (80), Cr (3.3), PO4 (5.0), Alb (2.9), Cl (112) Meds Noted: Albuterol, Zithromax, Protonix, Sodium Bicarbonate, Rocephin, Decadron, Pepcid, Fentanyl, Versed Additional Notes: No documented skin breakdown. Nutrition Monitoring and Evaluation: Follow up every Saturday/Saturday.
[2020-06-06] MEDS: FENTANYL 2,500MCG/NS250ML(*CRX 2,500 MCG/250 ML BAG 12.5 MCG IV CONT (13:58)
[2020-06-06] MEDS: CENTRAL LINE FLUSH 10 ML IV PUSH ×2 (14:00→21:11)
[2020-06-06] MEDS: LORazepam INJ (*CRX) 2 MG/ML VIAL IV PUSH (14:07)
[2020-06-06] MEDS: ROCURONIUM BROMIDE 50 MG/5 ML VIAL (14:37)
[2020-06-06 16:56] LABS: Glucose Point of Care 130 (65-105)
[2020-06-07] VITALS (53 sets, daily range): BP systolic 82–156; BP diastolic 49–94; PULSE 60–111; RESP 19–28; TEMP 36.1–37.7; O2SAT 92–100
[2020-06-07 00:33] LABS: Glucose Point of Care 120 (65-105)
[2020-06-07] MEDS: ALBUTEROL SULFATE NEB 2.5 MG/0.5 ML INH INHALATION ×6 (03:00→23:29)
[2020-06-07] MEDS: FENTANYL 2,500MCG/NS250ML(*CRX 2,500 MCG/250 ML BAG 17.5 MCG IV CONT ×2 (04:10→16:08)
[2020-06-07 04:24] LABS: Hematocrit 38.3 % (42.0-52.0); Hemoglobin 12.9 g/dL (14.0-18.0); Mean Corpuscular HGB Conc 33.7 g/dl (32-36); Mean Corpuscular Volume 92.1 fl (80-100); Mean Platelet Volume 11.1 fl (7.4-10.4); Platelet Count Result 254 k/mm3 (150-375); Red Blood Count 4.16 M/mm3 (4.6-6.20); Red Cell Distribution Width 13.6 % (11.5-14.5); White Blood Count 8.8 K/mm3 (4.5-10.0)
[2020-06-07 04:45] LABS: Base Excess ABG -5.2 mEq/l (+/-2.0); Carboxyhemoglobin 0.3 % THb (0-2.0); Device VENTILATOR; Fractional Inspired Oxygen 85 %; HCO3 ABG 19.8 mEq/l (22.0-26.0); Methemoglobin ABG 0.3 %THb (0-1.5); Modified Allen's Test Unable to perform; Oxygen Content ABG 17.4 %vol (16.0-22.0); Oxygen Saturation ABG 91.9 % (95.0-100.0); Oxyhemoglobin 91.1 % THb (90.0-100.0); PCO2 ABG 36.8 mmHg (35.0-45.0); PO2 ABG 64.9 mmHg (80.0-100.0); PO2 FiO2 Ratio Arterial Blood 0.76 %; Reduced Hemoglobin 8.3 %THb (0-5.0); Site Drawn LEFT RADIAL; Total Hemoglobin 13.6 g/dL (12.0-18.0); pH ABG 7.348 (7.350-7.450)
[2020-06-07 04:46] LABS: Arterial Blood Gas PEEP 12 cmH2O; Arterial Blood Gas Tidal Volume 450 ml; Arterial Blood Gas Vent Mode ASSIST CONTROL; Arterial Blood Gas Ventilator rate 24 /MIN
[2020-06-07 04:51] LABS: D Dimer 4.97 ug/mL (<0.48)
[2020-06-07 05:21] LABS: Alanine Aminotransferase 35 U/L (4-50); Albumin Level 3.1 g/dL (3.5-5.1); Alkaline Phosphatase 94 U/L (38-126); Anion Gap 6 mmol/L (8-16); Aspartate Amino Transferase 33 U/L (17-59); Bilirubin,Total 0.8 mg/dL (0.2-1.3); Blood Urea Nitrogen 72 mg/dL (9-20); Calcium 9.4 mg/dL (8.4-10.2); Carbon Dioxide 24 mmol/L (22-30); Chloride 115 mmol/L (98-107); Estimated CRCL calculation 34 ml/min; Estimated Glomerular Filt Rate 23; Glucose 124 mg/dL (75-110); Lactate Dehydrogenase 937 U/L (313-618); Magnesium 2.6 mg/dL (1.6-2.3); Potassium 4.5 mmol/L (3.4-5.0); Sodium 145 mmol/L (137-145)
[2020-06-07] MEDS: CENTRAL LINE FLUSH 10 ML IV PUSH ×3 (05:36→22:27)
[2020-06-07] MEDS: ROCURONIUM BROMIDE 50 MG/5 ML VIAL IV PUSH (07:16)
[2020-06-07] MEDS: DEXAMETHASONE SOD PHOS INJ 4 MG/ML VIAL 6 MG IV PUSH (08:03)
[2020-06-07] MEDS: PANTOPRAZOLE SODIUM IV 40 MG VIAL IV PUSH (08:03)
[2020-06-07] MEDS: ENOXAPARIN 40 MG/0.4 ML SYRINGE SUB-Q ×2 (08:04→22:27)
--- NOTE | 2020-06-07 10:40 | PCDIET ---
Nutrition Follow-Up Complete: Nutrition Diagnosis: Involuntary weight loss related to decreased appetite as evidenced by reported and documented weight loss of 4% x 2 weeks. Nutrition Goal: Patient to meet estimated nutritional needs. Goal in progress. Nepro tube feedings infusing at 20mL/hr due to prone positioning. Residuals 250mL and below. Last recorded weight is 119.3 kg which is stable with last review. Bowel Motility: Last documented BM on 06/03/20. If medically appropriate, may need to consider medication to promote BM. Labs Reviewed: Hgb (12.9), Hct (38.3), Glu (124), BUN (72), Cr (2.8), Alb (3.1) Meds Noted: Albuterol, Azithromycin, Rocephin, Nimbex, Decadron, Fentanyl, Versed, Protonix, Sodium Bicarbonate Additional Notes: No documented skin breakdown. Will continue to monitor with same goal. Nutrition Monitoring and Evaluation: Follow up every Saturday/Saturday.
--- NOTE | 2020-06-07 10:59 | WPDINTPN ---
Progress Note: A&P Assessment and Plan (1) Acute hypoxemic respiratory failure: Code(s): J96.01 - Acute respiratory failure with hypoxia Status: Acute Assessment and Plan: Acute hypoxemic respiratory failure likely related COVID-19 pneumonia -patient presented the hospital on 06/03/2019 and was intubated on 06/05/2019 after failing BiPAP and high-flow therapy -chest x-ray and ABG reviewed -low tidal volume strategy to prevent barotrauma and volume trauma. -patient was placed in prone position yesterday until this morning. No significant improvement in lowering off FiO2. -patient intermittently becomes dyssynchronous with the ventilator and loses recruitment requiring FiO2 to be increased -NMB bolus given this morning. I will start Nimbex infusion -PEEP increased to 14. - continue bronchodilators -Rocephin and azithromycin (2) COVID-19: Code(s): U07.1 - COVID-19 Status: Acute Assessment and Plan: COVID-19 -results positive 06/03/2020 -patient started on dexamethasone on 06/04/2020 -not a candidate for Remdesivir due to acute on chronic renal failure -received a unit of convalescent plasma 06/05 -continue droplet, airborne and contact isolation/precautions -monitor inflammatory markers and trend (3) Acute on chronic renal insufficiency: Code(s): N28.9 - Disorder of kidney and ureter, unspecified; N18.9 - Chronic kidney disease, unspecified Status: Acute Assessment and Plan: Acute on chronic kidney disease likely related to hypertension, prerenal, COVID-19 -nephrology following the patient -renal ultrasound was unremarkable -patient now has a Aponte catheter, will continue monitor urine output, electrolytes and renal function -creatinine improving -add free water flushes for hypochloremia (4) DVT prophylaxis: Code(s): Z29.9 - Encounter for prophylactic measures, unspecified Status: Acute Assessment and Plan: Lovenox 40 mg SQ q.12 hours (5) Dietary counseling and surveillance: Code(s): Z71.3 - Dietary counseling and surveillance Status: Acute Assessment and Plan: Tube feeds were started yesterday but were held due to high residuals Add Reglan. Resume tube feeds at 20 mL/hour Stress ulcer prophylaxis: Protonix Additional Plan Code status: Full code Critical care time spent: 35 minutes Due to a high probability of clinically significant, life threatening deterioration, the patient required my highest level of preparedness to intervene emergently and I personally spent this critical care time directly and personally managing the patient. This critical care time included obtaining a history; examining the patient; pulse oximetry; ordering and review of studies; arranging urgent treatment with development of a management plan; evaluation of patient's response to treatment; frequent reassessment; and discussions with other providers. It was exclusive of separately billable procedures and treating other patients and teaching time. Please see Assessment and Plan section and the rest of the note for further information on patient assessment and treatment Subjective Date/time seen: 06/07/20 10:59 Overnight events reviewed. Afebrile Continues to be on mechanical ventilation Continues to be on sedation Vitals acceptable Still in prone position this morning when I saw the patient Tube feeds were held overnight due to high residuals Review of Systems Review of Systems: ROS unobtainable: Yes unobtainable due to endotracheal tube Exam Narrative: Exam Narrative: General: Pt is sedated, intubated and on mechanical ventilation Lungs/Chest: Trachea central Coarse BS B/L, No crackles or wheezing. Cardiac: RRR. Normal S1 S2. No murmurs Circulation: Pedal pulses are intact and symmetrical. Abdomen: Decreased bowel sounds. Obese. Soft. NT. ND. Extremities: No clubbing, cyanosis or edema. Warm : Aponte in place Neurologic: Unable to assess
[2020-06-07] MEDS: CISATRACURIUM BESYLATE 200 MG in DEXTROSE 5% 80 ML 10.74 ML IV CONT ×2 (11:07→22:24)
[2020-06-07] MEDS: SODIUM BICARBONATE TAB 650 MG TABLET 1300 MG PO ×2 (11:16→17:15)
[2020-06-07] MEDS: METOCLOPRAMIDE HCL 10 MG/10 ML SOLN UDC 5 MG PO ×2 (11:16→17:15)
--- NOTE | 2020-06-07 11:32 | P.PNNP_ITS ---
Progress Note: A&P Assessment and Plan (1) SUPA (acute kidney injury): Code(s): N17.9 - Acute kidney failure, unspecified Status: Acute Assessment and Plan: * presumably due to acute illness and COVID-19 * evaluation to date demonstrates pre-renal urine electrolytes and normal renal ultrasound unremarkable * no critical electrolytes and making some urine; creatinine is a bit better * follow trend of repeat labs and urine output (2) Stage 3a chronic kidney disease: Code(s): N18.31 - Chronic kidney disease, stage 3a Status: Chronic Assessment and Plan: * baseline creatinine runs around 1.5mg/dl * this is likely secondary to hypertension (3) COVID-19: Code(s): U07.1 - COVID-19 Status: Acute Assessment and Plan: * on dexamethasone since 06/04/20 * not a candidate for Remdesivir due to acute on chronic renal failure * s/p convalescent plasma 06/05/20 * continue droplet/airborne/contact isolation + precautions * monitor inflammatory markers (4) Acute hypoxemic respiratory failure: Code(s): J96.01 - Acute respiratory failure with hypoxia Status: Acute Assessment and Plan: * chest x-ray shows findings consistent with COVID-19 * currently intubated and on mechanical ventilation * continue current strategy/therapy (5) Anemia: Code(s): D64.9 - Anemia, unspecified Status: Acute Assessment and Plan: * mild at this time * probably related to acute illness, SUPA, and CKD * follow trend of H/H (6) YUDY (obstructive sleep apnea): Code(s): G47.33 - Obstructive sleep apnea (adult) (pediatric) Status: Chronic Assessment and Plan: * likely complicate this respiratory failure * on ventilator support now Will continue to follow. Subjective Date/time seen: 06/07/20 11:32 Remains on mechanical ventilation and was prone overnight but still requiring significant FIO2; started on paralytics; no other significant changes noted overnight or earlier this AM; remains hemodynamically stable. Exam Narrative: Exam Narrative: General: WD/WN male intubated/on ventilator Heart: normal S1 and S2; no rub Lungs: coarse breath sounds throughout Abdomen: soft, nontender, nondistended, positive bowel sounds Extremities: no cyanosis or clubbing; no edema Skin: warm and intact Objective Data Vital Signs Vital Signs: Vital Signs Temp Pulse Resp BP Pulse Ox 06/07/20 11:07 72 24 H 103/71 06/07/20 10:00 94 19 119/72 92 06/07/20 08:14 101 H 24 H 06/07/20 08:00 37.7 C H 101 H 24 H 125/78 96 06/07/20 07:59 101 H 24 H 06/07/20 07:56 101 H 24 H 06/07/20 07:46 100 24 H 97 06/07/20 06:30 88 28 H 06/07/20 06:00 90 24 H 95/60 L 98 06/07/20 04:31 84 97 06/07/20 04:10 85 24 H 06/07/20 04:00 37.4 C 83 24 H 114/73 96 06/07/20 03:00 84 20 06/07/20 02:08 77 93 06/07/20 02:00 78 24 H 107/74 95 06/07/20 00:15 80 24 H 06/07/20 00:00 36.8 C 78 24 H 109/81 94 06/06/20 23:08 71 21 H 06/06/20 23:05 63 98 06/06/20 22:00 76 14 107/74 94 06/06/20 21:10 78 25 H 06/06/20 20:30 79 26 H 06/06/20 20:20 72 18 06/06/20 20:16 71 95 06/06/20 20:14 68 24 H
--- NOTE | 2020-06-07 11:32 | PM.PNNEP ---
Progress Note: A&P Assessment and Plan (1) SUPA (acute kidney injury): Code(s): N17.9 - Acute kidney failure, unspecified Status: Acute Assessment and Plan: presumably due to acute illness and COVID-19 evaluation to date demonstrates pre-renal urine electrolytes and normal renal ultrasound unremarkable no critical electrolytes and making some urine; creatinine is a bit better follow trend of repeat labs and urine output (2) Stage 3a chronic kidney disease: Code(s): N18.31 - Chronic kidney disease, stage 3a Status: Chronic Assessment and Plan: baseline creatinine runs around 1.5mg/dl this is likely secondary to hypertension (3) COVID-19: Code(s): U07.1 - COVID-19 Status: Acute Assessment and Plan: on dexamethasone since 06/04/20 not a candidate for Remdesivir due to acute on chronic renal failure s/p convalescent plasma 06/05/20 continue droplet/airborne/contact isolation + precautions monitor inflammatory markers (4) Acute hypoxemic respiratory failure: Code(s): J96.01 - Acute respiratory failure with hypoxia Status: Acute Assessment and Plan: chest x-ray shows findings consistent with COVID-19 currently intubated and on mechanical ventilation continue current strategy/therapy (5) Anemia: Code(s): D64.9 - Anemia, unspecified Status: Acute Assessment and Plan: mild at this time probably related to acute illness, SUPA, and CKD follow trend of H/H (6) YUDY (obstructive sleep apnea): Code(s): G47.33 - Obstructive sleep apnea (adult) (pediatric) Status: Chronic Assessment and Plan: likely complicate this respiratory failure on ventilator support now Will continue to follow. Subjective Date/time seen: 06/07/20 11:32 Remains on mechanical ventilation and was prone overnight but still requiring significant FIO2; started on paralytics; no other significant changes noted overnight or earlier this AM; remains hemodynamically stable. Exam Narrative: Exam Narrative: General: WD/WN male intubated/on ventilator Heart: normal S1 and S2; no rub Lungs: coarse breath sounds throughout Abdomen: soft, nontender, nondistended, positive bowel sounds Extremities: no cyanosis or clubbing; no edema Skin: warm and intact Objective Data Vital Signs Vital Signs: Vital Signs Temp Pulse Resp BP Pulse Ox 06/07/20 11:07 72 24 H 103/71 06/07/20 10:00 94 19 119/72 92 06/07/20 08:14 101 H 24 H 06/07/20 08:00 37.7 C H 101 H 24 H 125/78 96 06/07/20 07:59 101 H 24 H 06/07/20 07:56 101 H 24 H 06/07/20 07:46 100 24 H 97 06/07/20 06:30 88 28 H 06/07/20 06:00 90 24 H 95/60 L 98 06/07/20 04:31 84 97 06/07/20 04:10 85 24 H 06/07/20 04:00 37.4 C 83 24 H 114/73 96 06/07/20 03:00 84 20 06/07/20 02:08 77 93 06/07/20 02:00 78 24 H 107/74 95 06/07/20 00:15 80 24 H 06/07/20 00:00 36.8 C 78 24 H 109/81 94 06/06/20 23:08 71 21 H 06/06/20 23:05 63 98 06/06/20 22:00 76 14 107/74 94 06/06/20 21:10 78 25 H 06/06/20 20:30 79 26 H 06/06/20 20:20 72 18 06/06/20 20:16 71 95 06/06/20 20:14 68 24 H 06/06/20 20:00 36.9 C 89 19 117/80 94 06/06/20 18:00 81 25 H 116/66 96 06/06/20 17:05 87 88 L 06/06/20 17:04 85 27 H 06/06/20 17:01 86 17 06/06/20 17:00 84 17 06/06/20 16:00 36.2 C L 73 21 H 91/57 L 92 06/06/20 15:14 76 96 06/06/20 14:31 78 98 06/06/20 14:00 77 24 H 110/72 97 06/06/20 13:58 68 23 H 06/06/20 13:57 74 24 H 06/06/20 13:42 71 24 H 06/06/20 13:36 71 24 H 06/06/20 13:27 65 24 H 06/06/20 12:00 35.9 C L 72 25 H 112/73 95 06/06/20 11:52 72 21 H Intake/Output Intake/Output: Intake & Output 06/04/20 06/05/20 06/06/20 06/07/20 23:59 23:59 23:59 23:59 Inta
[2020-06-07 14:56] LABS: Glucose Point of Care 136 (65-105)
--- NOTE | 2020-06-07 15:32 | PM.IMPN ---
Progress Note: A&P Assessment and Plan (1) COVID-19: Code(s): U07.1 - COVID-19 Status: Acute Assessment and Plan: Not started on Remdesivir due to renal failure Dexamethasone day 4. Received convalescent plasma 06/05 Breathing treatments. (2) Acute hypoxemic respiratory failure: Code(s): J96.01 - Acute respiratory failure with hypoxia Status: Acute Assessment and Plan: Now on ventilator, 06/05 As was mental status was deteriorating (3) Acute on chronic renal insufficiency: Code(s): N28.9 - Disorder of kidney and ureter, unspecified; N18.9 - Chronic kidney disease, unspecified Status: Acute Assessment and Plan: Bun/Cr trending down, with creatinine at 2.8 and had peaked at 4.9 Likely to be pre renal Continue to monitor I/O's strict (4) Gastro-esophageal reflux disease without esophagitis: Code(s): K21.9 - Gastro-esophageal reflux disease without esophagitis Status: Acute Assessment and Plan: PPI Stable. (5) YUDY (obstructive sleep apnea): Code(s): G47.33 - Obstructive sleep apnea (adult) (pediatric) Status: Acute Assessment and Plan: Now on ventilator support. (6) DVT prophylaxis: Code(s): Z29.9 - Encounter for prophylactic measures, unspecified Status: Acute Assessment and Plan: Lovenox Q 12 with the COVID Subjective Date/time seen: 06/07/20 15:32 Interval history: Date of visit 06/07. 60-year-old male with acute respiratory failure and renal failure with COVID pneumonia. 06/05 intubated and continues on mechanical ventilation and sedation. Exam Narrative: Exam Narrative: Blood pressure 96/57 pulse is 84 afebrile saturating 90% with FiO2 of 90% and PEEP of 14 In the prone position at present time Lungs distant breath sounds no areas of consolidation CV regular rate rhythm Extremities without edema distal pulses 1+ at best Neuro sedated Objective Data Vital Signs Vital Signs: Vital Signs - 24 hr 06/06/20 16:00 06/06/20 17:00 06/06/20 17:01 Temperature 36.2 C L Pulse Rate 73 84 86 Respiratory Rate 21 H 17 17 Blood Pressure 91/57 L Pulse Oximetry 92 06/06/20 17:04 06/06/20 17:05 06/06/20 18:00 Temperature Pulse Rate 85 87 81 Respiratory Rate 27 H 25 H Blood Pressure 116/66 Pulse Oximetry 88 L 96 06/06/20 20:00 06/06/20 20:14 06/06/20 20:16 Temperature 36.9 C Pulse Rate 89 68 71 Respiratory Rate 19 24 H Blood Pressure 117/80 Pulse Oximetry 94 95 06/06/20 20:20 06/06/20 20:30 06/06/20 21:10 Temperature Pulse Rate 72 79 78 Respiratory Rate 18 26 H 25 H Blood Pressure Pulse Oximetry 06/06/20 22:00 06/06/20 23:05 06/06/20 23:08 Temperature Pulse Rate 76 63 71 Respiratory Rate 14 21 H Blood Pressure 107/74 Pulse Oximetry 94 98 06/07/20 00:00 06/07/20 00:15 06/07/20 02:00 Temperature 36.8 C Pulse Rate 78 80 78 Respiratory Rate 24 H 24 H 24 H Blood Pressure 109/81 107/74 Pulse Oximetry 94 95 06/07/20 02:08 06/07/20 03:00 06/07/20 04:00 Temperature 37.4 C Pulse Rate 77 84 83 Respiratory Rate 20 24 H Blood Pressure 114/73 Pulse Oximetry 93 96 06/07/20 04:10 06/07/20 04:31 06/07/20 06:00 Temperature Pulse Rate 85 84 90 Respiratory Rate 24 H 24 H Blood Pressure 95/60 L Pulse Oximetry 97 98 06/07/20 06:30 06/07/20 07:46 06/07/20 07:56 Temperature Pulse Rate 88 100 101 H Respiratory Rate 28 H 24 H 24 H Blood Pressure Pulse Oximetry 97 06/07/20 07:59 06/07/20 08:00 06/07/20 08:14 Temperature 37.7 C H Pulse Rate 101 H 101 H 101 H Respiratory Rate 24 H 24 H 24 H Blood Pressure 125/78 Pulse Oximetry 99 06/07/20 10:00 06/07/20 10:45 06/07/20 11:07 Temperature Pulse Rate 93 88 72 Respiratory Rate 19 24 H 24 H Blood Pressure 119/72 103/71 Pulse Oximetry 92 06/07/20 11:10 06/07/20 11:51 06/07/20 11:55 Temperature Pulse Rate 99 85 87 Respiratory Ra
--- NOTE | 2020-06-07 16:36 | PC.NURSE ---
Notified Dr. Guillory of decreasing in Bp for last hour. SBP in the 80's, MAP 60-65. Fent @ 175, Versed @ 8, Nimbex @ 2. New order for Levophed to maintain MAP > 65 & SBP >90
[2020-06-07] MEDS: NOREPINEPHRINE 8 MG/D5W 250 ML 8 MG/250 ML BAG 9.38 MG IV CONT (17:08)
[2020-06-07 17:52] LABS: Glucose Point of Care 195 (65-105)
--- NOTE | 2020-06-07 23:47 | PC.NURSE ---
Pt. placed in prone position at [address] scan.
[2020-06-08] VITALS (52 sets, daily range): BP systolic 81–156; BP diastolic 56–99; PULSE 58–107; RESP 20–26; TEMP 35.6–37.6; O2SAT 92–97
[2020-06-08] MEDS: METOCLOPRAMIDE HCL 10 MG/10 ML SOLN UDC 5 MG PO ×4 (00:53→17:14)
[2020-06-08 01:05] LABS: Glucose Point of Care 140 (65-105)
[2020-06-08] MEDS: ALBUTEROL SULFATE NEB 2.5 MG/0.5 ML INH INHALATION ×5 (03:06→19:58)
[2020-06-08 04:22] LABS: Alveolar/Arterial O2 Gradient 291.3 mmHg; Base Excess ABG -3.8 mEq/l (+/-2.0); Carboxyhemoglobin 0.3 % THb (0-2.0); Fractional Inspired Oxygen 60 %; HCO3 ABG 21.8 mEq/l (22.0-26.0); Methemoglobin ABG 0.3 %THb (0-1.5); Oxygen Content ABG 16.9 %vol (16.0-22.0); Oxygen Saturation ABG 96.5 % (95.0-100.0); Oxyhemoglobin 95.4 % THb (90.0-100.0); PCO2 ABG 41.6 mmHg (35.0-45.0); PO2 ABG 90.7 mmHg (80.0-100.0); PO2 FiO2 Ratio Arterial Blood 1.51 %; Total Hemoglobin 12.5 g/dL (12.0-18.0); pH ABG 7.337 (7.350-7.450)
[2020-06-08 04:24] LABS: Device VENTILATOR; Modified Allen's Test Pass; Site Drawn RIGHT RADIAL
[2020-06-08 04:25] LABS: Arterial Blood Gas PEEP 14 cmH2O; Arterial Blood Gas Tidal Volume 450 ml; Arterial Blood Gas Vent Mode CMV; Arterial Blood Gas Ventilator rate 24 /MIN
[2020-06-08 06:27] LABS: Hematocrit 38.6 % (42.0-52.0); Hemoglobin 12.8 g/dL (14.0-18.0); Mean Corpuscular HGB Conc 33.2 g/dl (32-36); Mean Corpuscular Volume 93.5 fl (80-100); Mean Platelet Volume 10.5 fl (7.4-10.4); Platelet Count Result 243 k/mm3 (150-375); Red Blood Count 4.13 M/mm3 (4.6-6.20); Red Cell Distribution Width 13.9 % (11.5-14.5)
[2020-06-08] MEDS: CENTRAL LINE FLUSH 10 ML IV PUSH ×3 (06:38→21:27)
[2020-06-08 06:46] LABS: Alanine Aminotransferase 50 U/L (4-50); Albumin Level 2.9 g/dL (3.5-5.1); Alkaline Phosphatase 113 U/L (38-126); Anion Gap 4 mmol/L (8-16); Aspartate Amino Transferase 40 U/L (17-59); Bilirubin,Total 0.9 mg/dL (0.2-1.3); Blood Urea Nitrogen 66 mg/dL (9-20); Calcium 9.4 mg/dL (8.4-10.2); Carbon Dioxide 29 mmol/L (22-30); Chloride 116 mmol/L (98-107); Estimated CRCL calculation 44 ml/min; Estimated Glomerular Filt Rate 32; Glucose 139 mg/dL (75-110); Magnesium 2.5 mg/dL (1.6-2.3); Potassium 4.7 mmol/L (3.4-5.0); Sodium 149 mmol/L (137-145)
[2020-06-08 07:25] LABS: Glucose Point of Care 130 (65-105)
[2020-06-08] MEDS: FENTANYL 2,500MCG/NS250ML(*CRX 2,500 MCG/250 ML BAG 12.5 MCG IV CONT (07:57)
[2020-06-08] MEDS: SODIUM BICARBONATE TAB 650 MG TABLET 1300 MG PO ×2 (08:00→17:15)
[2020-06-08] MEDS: PANTOPRAZOLE SODIUM IV 40 MG VIAL IV PUSH (08:00)
[2020-06-08] MEDS: DEXAMETHASONE SOD PHOS INJ 4 MG/ML VIAL 6 MG IV PUSH (08:00)
[2020-06-08] MEDS: ENOXAPARIN 40 MG/0.4 ML SYRINGE SUB-Q ×2 (08:00→20:02)
[2020-06-08] MEDS: CISATRACURIUM BESYLATE 200 MG in DEXTROSE 5% 80 ML 7.16 ML IV CONT (10:33)
--- NOTE | 2020-06-08 10:47 | WPDINTPN ---
Progress Note: A&P Assessment and Plan (1) Acute hypoxemic respiratory failure: Code(s): J96.01 - Acute respiratory failure with hypoxia Status: Acute Assessment and Plan: Acute hypoxemic respiratory failure likely related COVID-19 pneumonia -patient presented the hospital on 06/03/2019 and was intubated on 06/05/2019 after failing BiPAP and high-flow therapy -chest x-ray and ABG reviewed -low tidal volume strategy to prevent barotrauma and volume trauma. -patient was placed in prone position for last 2 days until this morning. Patient also chemically paralyzed for patient ventilator synchrony -FiO2 down to 60% this morning. Peep is at 14 -patient switched to supine position this morning will placed back in prone position after 6 hours - continue bronchodilators -Rocephin and azithromycin for 5 day course (2) COVID-19: Code(s): U07.1 - COVID-19 Status: Acute Assessment and Plan: COVID-19 -results positive 06/03/2020 -patient started on dexamethasone on 06/04/2020 -not a candidate for Remdesivir due to acute on chronic renal failure -received a unit of convalescent plasma 06/05 -continue droplet, airborne and contact isolation/precautions -monitor inflammatory markers and trend (3) Acute on chronic renal insufficiency: Code(s): N28.9 - Disorder of kidney and ureter, unspecified; N18.9 - Chronic kidney disease, unspecified Status: Acute Assessment and Plan: Acute on chronic kidney disease likely related to hypertension, prerenal, COVID-19 -nephrology following the patient -renal ultrasound was unremarkable -patient now has a Aponte catheter, will continue monitor urine output, electrolytes and renal function -creatinine improving -increase free water free water flushes for hypochloremia and hyponatremia to 100 mL q.4 (4) DVT prophylaxis: Code(s): Z29.9 - Encounter for prophylactic measures, unspecified Status: Acute Assessment and Plan: Lovenox 40 mg SQ q.12 hours (5) Dietary counseling and surveillance: Code(s): Z71.3 - Dietary counseling and surveillance Status: Acute Assessment and Plan: Reglan was added as today and patient is now tolerating tube feeds will advance to gold Stress ulcer prophylaxis: Protonix (6) Hypotension: Code(s): I95.9 - Hypotension, unspecified Status: Acute Assessment and Plan: Likely secondary to sedation and positive pressure ventilation. Patient in on low-dose Levophed for support Additional Plan Code status: Full code Chest x-ray shows tip of JACC catheter in right brachiocephalic vein. PICC nurse will power flush the catheter to try to bring it back in SVC Critical care time spent: 32 minutes Due to a high probability of clinically significant, life threatening deterioration, the patient required my highest level of preparedness to intervene emergently and I personally spent this critical care time directly and personally managing the patient. This critical care time included obtaining a history; examining the patient; pulse oximetry; ordering and review of studies; arranging urgent treatment with development of a management plan; evaluation of patient's response to treatment; frequent reassessment; and discussions with other providers. It was exclusive of separately billable procedures and treating other patients and teaching time. Please see Assessment and Plan section and the rest of the note for further information on patient assessment and treatment Subjective Date/time seen: 06/08/20 10:47 Overnight events reviewed Afebrile Continues to be on mechanical ventilation Continues to be on sedation and neuromuscular blockers Started on low-dose Levophed for blood pressure support Patient was placed in prone position overnight Interval history: Date of visit 06/07. 60-year-old male with acute respiratory failure and renal failure with COVID pneumonia. 06/05 intubated and continu
--- NOTE | 2020-06-08 11:12 | PCDIET ---
ICU Rounding Note: Patient tolerating Nepro at 20mL/hr. MD order to increase toward goal of 50mL/hr, as recommended. Last recorded weight is 119kg which is stable with last review. Bowel Motility: Last documented BM on 06/03/20 x 2. Noted Reglan has been added. Labs Reviewed: Hgb (12.8), Hct (38.6), Glu (139), BUN (66), Cr (2.1), Na (149), Alb (2.9), Mg (2.5) Meds Noted: Albuterol, Azithromycin, Rocephin, Nimbex, Decadron, Fentanyl, Reglan, Versed, Levophed, Protonix, Sodium Bicarbonate Additional Notes: No documented skin breakdown. Following daily in ICU rounds. Assessing/reassessing every Saturday/Saturday.
[2020-06-08 12:28] LABS: Glucose Point of Care 181 (65-105)
--- NOTE | 2020-06-08 14:51 | PM.IMPN ---
Progress Note: A&P Assessment and Plan (1) COVID-19: Code(s): U07.1 - COVID-19 Status: Acute Assessment and Plan: Not started on Remdesivir due to renal failure Dexamethasone day 5. Received convalescent plasma 06/05 Breathing treatments. (2) Acute hypoxemic respiratory failure: Code(s): J96.01 - Acute respiratory failure with hypoxia Status: Acute Assessment and Plan: Now on ventilator, 06/05, tapering 02 sat As was mental status was deteriorating (3) Acute on chronic renal insufficiency: Code(s): N28.9 - Disorder of kidney and ureter, unspecified; N18.9 - Chronic kidney disease, unspecified Status: Acute Assessment and Plan: Bun/Cr trending down, with creatinine at 2.1 and had peaked at 4.9 Likely to be pre renal Continue to monitor I/O's strict (4) Gastro-esophageal reflux disease without esophagitis: Code(s): K21.9 - Gastro-esophageal reflux disease without esophagitis Status: Acute Assessment and Plan: PPI Stable. (5) YUDY (obstructive sleep apnea): Code(s): G47.33 - Obstructive sleep apnea (adult) (pediatric) Status: Acute Assessment and Plan: Now on ventilator support. (6) DVT prophylaxis: Code(s): Z29.9 - Encounter for prophylactic measures, unspecified Status: Acute Assessment and Plan: Lovenox Q 12 with the COVID Subjective Date/time seen: 06/08/20 14:51 Interval history: Date of visit 06/08. 60-year-old male with acute respiratory failure and renal failure with COVID pneumonia. 06/05 intubated and continues on mechanical ventilation and sedation and slowly decreasing 02 requirements. Exam Narrative: Exam Narrative: Blood pressure 124/76 pulse is 66 afebrile saturating 95% with FiO2 of 95% and PEEP of 14 In the prone position at present time Lungs distant breath sounds no areas of consolidation CV regular rate rhythm Extremities without edema distal pulses 1+ at best Neuro sedated Objective Data Vital Signs Vital Signs: Vital Signs - 24 hr 06/07/20 14:57 06/07/20 15:00 06/07/20 15:02 Temperature Pulse Rate 111 H 99 99 Respiratory Rate 24 H 24 H 24 H Blood Pressure 85/49 L Pulse Oximetry 06/07/20 16:00 06/07/20 16:08 06/07/20 16:09 Temperature 37.3 C Pulse Rate 99 92 92 Respiratory Rate 24 H 24 H 24 H Blood Pressure 83/58 L Pulse Oximetry 99 06/07/20 16:10 06/07/20 16:22 06/07/20 16:32 Temperature Pulse Rate 94 93 91 Respiratory Rate 24 H 24 H 24 H Blood Pressure 83/58 L Pulse Oximetry 06/07/20 16:59 06/07/20 17:08 06/07/20 17:16 Temperature Pulse Rate 91 87 Respiratory Rate Blood Pressure 82/56 L 126/75 Pulse Oximetry 95 06/07/20 17:21 06/07/20 17:22 06/07/20 17:27 Temperature Pulse Rate 65 62 68 Respiratory Rate 24 H 24 H 24 H Blood Pressure 82/56 L Pulse Oximetry 06/07/20 17:47 06/07/20 18:00 06/07/20 18:43 Temperature Pulse Rate 77 71 Respiratory Rate 24 H 24 H Blood Pressure 109/66 102/65 92/59 L Pulse Oximetry 96 06/07/20 18:44 06/07/20 20:00 06/07/20 21:00 Temperature 36.1 C L Pulse Rate 60 100 Respiratory Rate 24 H Blood Pressure 92/59 L 115/66 Pulse Oximetry 96 96 06/07/20 21:25 06/07/20 21:26 06/07/20 22:00 Temperature Pulse Rate 91 99 67 Respiratory Rate 24 H 24 H 24 H Blood Pressure 156/90 H Pulse Oximetry 94 06/07/20 22:24 06/07/20 23:30 06/07/20 23:31 Temperature Pulse Rate 75 81 81 Respiratory Rate 24 H 24 H Blood Pressure 150/84 H Pulse Oximetry 94 06/08/20 00:00 06/08/20 00:21 06/08/20 00:56 Temperature 35.6 C L Pulse Rate 77 79 77 Respiratory Rate 24 H 24 H Blood Pressure 142/93 H 151/97 H 148/99 H Pulse Oximetry 95 06/08/20 01:45 06/08/20 02:00 06/08/20 02:35 Temperature Pulse Rate 73 72 74 Respiratory Rate 24 H Blood Pressure 149/97 H 145/99 H Pulse Oximetry 95 94 06/08/20 03:10 06/08/20 04:
--- NOTE | 2020-06-08 15:20 | PM.PNNEP ---
Progress Note: A&P Assessment and Plan (1) SUPA (acute kidney injury): Code(s): N17.9 - Acute kidney failure, unspecified Status: Acute Assessment and Plan: presumably due to acute illness and COVID-19 evaluation to date demonstrates pre-renal urine electrolytes and normal renal ultrasound unremarkable no critical electrolytes and making urine with improvement in creatinine noted follow trend of repeat labs and urine output (2) Stage 3a chronic kidney disease: Code(s): N18.31 - Chronic kidney disease, stage 3a Status: Chronic Assessment and Plan: baseline creatinine runs around 1.5mg/dl this is likely secondary to hypertension (3) Acute hypoxemic respiratory failure: Code(s): J96.01 - Acute respiratory failure with hypoxia Status: Acute Assessment and Plan: chest x-ray shows findings consistent with COVID-19 currently intubated and on mechanical ventilation finish course of antibiotics continue current strategy/therapy (4) COVID-19: Code(s): U07.1 - COVID-19 Status: Acute Assessment and Plan: on dexamethasone since 06/04/20 not a candidate for Remdesivir due to acute on chronic renal failure s/p convalescent plasma 06/05/20 continue droplet/airborne/contact isolation + precautions monitor inflammatory markers (5) Hypernatremia: Code(s): E87.0 - Hyperosmolality and hypernatremia Status: Acute Assessment and Plan: due to free water deficit titrate free water flushes for correction (6) Hypotension: Code(s): I95.9 - Hypotension, unspecified Status: Acute Assessment and Plan: on low dose levophred due to sedation and need for positive pressure ventilation (7) Anemia: Code(s): D64.9 - Anemia, unspecified Status: Acute Assessment and Plan: mild at this time probably related to acute illness, SUPA, and CKD follow trend of H/H Will continue to follow. Subjective Date/time seen: 06/08/20 15:20 Started on low dose levophed due to hypotension (likely secondary to positive pressure ventilation + sedation); remains on full ventilator support -- currently sedated and paralyzed; no other acute events overnight or earlier this AM. Exam Narrative: Exam Narrative: General: WD/WN male intubated/on ventilator Heart: normal S1 and S2; no rub Lungs: coarse breath sounds throughout Abdomen: soft, nontender, nondistended, positive bowel sounds Extremities: no cyanosis or clubbing; no edema Skin: no rash or nodules Objective Data Vital Signs Vital Signs: Vital Signs Temp Pulse Resp BP Pulse Ox 06/08/20 15:16 82 24 H 95/65 L 06/08/20 14:25 83 92 06/08/20 14:01 81 24 H 92/56 L 06/08/20 14:00 36.5 C 81 24 H 92/56 L 92 06/08/20 12:02 123/76 06/08/20 12:01 66 24 H 123/76 06/08/20 12:00 35.9 C L 67 24 H 123/76 95 06/08/20 11:40 64 24 H 06/08/20 11:30 64 24 H 95 06/08/20 10:34 83/63 L 06/08/20 10:00 35.6 C L 80 24 H 87/67 L 92 06/08/20 09:59 80 24 H 81/62 L 06/08/20 09:58 84 24 H 81/62 L 06/08/20 08:50 68 24 H 06/08/20 08:40 65 24 H 97 06/08/20 08:12 67 24 H 06/08/20 08:11 63 24 H 139/91 H 06/08/20 08:00 35.7 C L 67 24 H 139/91 H 95 06/08/20 07:57 59 L 24 H 06/08/20 06:36 68 24 H 06/08/20 06:00 69 24 H 139/97 H 95 06/08/20 05:57 68 24 H 06/08/20 04:29 66 96 06/08/20 04:00 35.6 C L 68 24 H 156/99 H 96 06/08/20 03:10 24 H 06/08/20 02:35 74 94 06/08/20 02:00 72 24 H 145/99 H 95 06/08/20 01:45 73 149/97 H 06/08/20 00:56 77 148/99 H 06/08/20 00:21 79 24 H 151/97 H 06/08/20 00:00 35.6 C L 77 24 H 142/93 H 95 06/07/20 23:31 81 94 06/07/20 23:30 81 24 H 01/12/21 22:24 75 24 H 150/84 H 06/07/20 22:00 67 24 H 156/90 H 94 06/07/20 21:26 99 24 H 06/07/20
--- NOTE | 2020-06-08 15:20 | P.PNNP_ITS ---
Progress Note: A&P Assessment and Plan (1) SUPA (acute kidney injury): Code(s): N17.9 - Acute kidney failure, unspecified Status: Acute Assessment and Plan: * presumably due to acute illness and COVID-19 * evaluation to date demonstrates pre-renal urine electrolytes and normal renal ultrasound unremarkable * no critical electrolytes and making urine with improvement in creatinine noted * follow trend of repeat labs and urine output (2) Stage 3a chronic kidney disease: Code(s): N18.31 - Chronic kidney disease, stage 3a Status: Chronic Assessment and Plan: * baseline creatinine runs around 1.5mg/dl * this is likely secondary to hypertension (3) Acute hypoxemic respiratory failure: Code(s): J96.01 - Acute respiratory failure with hypoxia Status: Acute Assessment and Plan: * chest x-ray shows findings consistent with COVID-19 * currently intubated and on mechanical ventilation * finish course of antibiotics * continue current strategy/therapy (4) COVID-19: Code(s): U07.1 - COVID-19 Status: Acute Assessment and Plan: * on dexamethasone since 06/04/20 * not a candidate for Remdesivir due to acute on chronic renal failure * s/p convalescent plasma 06/05/20 * continue droplet/airborne/contact isolation + precautions * monitor inflammatory markers (5) Hypernatremia: Code(s): E87.0 - Hyperosmolality and hypernatremia Status: Acute Assessment and Plan: * due to free water deficit * titrate free water flushes for correction (6) Hypotension: Code(s): I95.9 - Hypotension, unspecified Status: Acute Assessment and Plan: * on low dose levophred * due to sedation and need for positive pressure ventilation (7) Anemia: Code(s): D64.9 - Anemia, unspecified Status: Acute Assessment and Plan: * mild at this time * probably related to acute illness, SUPA, and CKD * follow trend of H/H Will continue to follow. Subjective Date/time seen: 06/08/20 15:20 Started on low dose levophed due to hypotension (likely secondary to positive p ressure ventilation + sedation); remains on full ventilator support -- currently sedated and paralyzed; no other acute events overnight or earlier this AM. Exam Narrative: Exam Narrative: General: WD/WN male intubated/on ventilator Heart: normal S1 and S2; no rub Lungs: coarse breath sounds throughout Abdomen: soft, nontender, nondistended, positive bowel sounds Extremities: no cyanosis or clubbing; no edema Skin: no rash or nodules Objective Data Vital Signs Vital Signs: Vital Signs Temp Pulse Resp BP Pulse Ox 06/08/20 15:16 82 24 H 95/65 L 06/08/20 14:25 83 92 06/08/20 14:01 81 24 H 92/56 L 06/08/20 14:00 36.5 C 81 24 H 92/56 L 92 06/08/20 12:02 123/76 06/08/20 12:01 66 24 H 123/76 06/08/20 12:00 35.9 C L 67 24 H 123/76 95 06/08/20 11:40 64 24 H 06/08/20 11:30 64 24 H 95 06/08/20 10:34 83/63 L 06/08/20 10:00 35.6 C L 80 24 H 87/67 L 92 06/08/20 09:59 80 24 H 81/62 L 06/08/20 09:58 84 24 H 81/62 L 06/08/20 08:50 68 24 H 06/08/20 08:40 65 24 H 97 06/08/20 08:12 67 24 H 06/08/20 08:11 63 24 H 139/91 H 06/08/20 08:00 35.7 C L 67 24 H 139/91
[2020-06-08 17:51] LABS: Glucose Point of Care 181 (65-105)
[2020-06-09] VITALS (47 sets, daily range): BP systolic 82–189; BP diastolic 57–117; PULSE 82–110; RESP 24–26; TEMP 36.1–37.4; O2SAT 88–98
[2020-06-09] MEDS: METOCLOPRAMIDE HCL 10 MG/10 ML SOLN UDC 5 MG PO ×4 (00:13→18:05)
[2020-06-09 00:28] LABS: Glucose Point of Care 120 (65-105)
[2020-06-09] MEDS: CISATRACURIUM BESYLATE 200 MG in DEXTROSE 5% 80 ML 10.74 ML IV CONT (01:37)
[2020-06-09] MEDS: ALBUTEROL SULFATE NEB 2.5 MG/0.5 ML INH INHALATION ×5 (02:03→20:55)
[2020-06-09 04:32] LABS: Alveolar/Arterial O2 Gradient 279.9 mmHg; Base Excess ABG -2.9 mEq/l (+/-2.0); Carboxyhemoglobin 0.3 % THb (0-2.0); Fractional Inspired Oxygen 60 %; HCO3 ABG 23.2 mEq/l (22.0-26.0); Methemoglobin ABG 0.5 %THb (0-1.5); Oxygen Content ABG 18.3 %vol (16.0-22.0); Oxygen Saturation ABG 96.9 % (95.0-100.0); PCO2 ABG 45.6 mmHg (35.0-45.0); PO2 ABG 97.7 mmHg (80.0-100.0); PO2 FiO2 Ratio Arterial Blood 1.63 %; Reduced Hemoglobin 3.2 %THb (0-5.0); Total Hemoglobin 13.5 g/dL (12.0-18.0); pH ABG 7.325 (7.350-7.450)
[2020-06-09 04:33] LABS: Arterial Blood Gas PEEP 12 cmH2O; Arterial Blood Gas Tidal Volume 450 ml; Arterial Blood Gas Vent Mode CMV; Arterial Blood Gas Ventilator rate 24 /MIN; Device VENTILATOR; Modified Allen's Test Pass; Site Drawn RIGHT RADIAL
[2020-06-09 04:44] LABS: Hematocrit 38.3 % (42.0-52.0); Hemoglobin 12.3 g/dL (14.0-18.0); Mean Corpuscular HGB Conc 32.1 g/dl (32-36); Mean Corpuscular Hemoglobin 30.5 pg (26-34); Mean Platelet Volume 10.4 fl (7.4-10.4); Platelet Count Result 263 k/mm3 (150-375); Red Blood Count 4.03 M/mm3 (4.6-6.20); Red Cell Distribution Width 14.1 % (11.5-14.5); White Blood Count 6.7 K/mm3 (4.5-10.0)
[2020-06-09] MEDS: FENTANYL 2,500MCG/NS250ML(*CRX 2,500 MCG/250 ML BAG 12.5 MCG IV CONT (04:46)
[2020-06-09 05:05] LABS: Alanine Aminotransferase 46 U/L (4-50); Albumin Level 2.9 g/dL (3.5-5.1); Alkaline Phosphatase 107 U/L (38-126); Anion Gap 1 mmol/L (8-16); Aspartate Amino Transferase 30 U/L (17-59); Bilirubin,Total 0.6 mg/dL (0.2-1.3); Blood Urea Nitrogen 65 mg/dL (9-20); Calcium 10.1 mg/dL (8.4-10.2); Carbon Dioxide 30 mmol/L (22-30); Chloride 115 mmol/L (98-107); Estimated CRCL calculation 49 ml/min; Estimated Glomerular Filt Rate 36; Glucose 153 mg/dL (75-110); Lactate Dehydrogenase 616 U/L (313-618); Magnesium 2.3 mg/dL (1.6-2.3); Sodium 146 mmol/L (137-145)
[2020-06-09 05:21] LABS: D Dimer 7.05 ug/mL (<0.48)
[2020-06-09] MEDS: CENTRAL LINE FLUSH 10 ML IV PUSH ×3 (06:02→22:24)
[2020-06-09] MEDS: ENOXAPARIN 40 MG/0.4 ML SYRINGE SUB-Q ×2 (08:58→20:33)
[2020-06-09] MEDS: SODIUM BICARBONATE TAB 650 MG TABLET 1300 MG PO ×2 (08:58→16:30)
[2020-06-09] MEDS: DEXAMETHASONE SOD PHOS INJ 4 MG/ML VIAL 6 MG IV PUSH (08:59)
[2020-06-09] MEDS: PANTOPRAZOLE SODIUM IV 40 MG VIAL IV PUSH (08:59)
--- NOTE | 2020-06-09 10:56 | PCDIET ---
ICU Rounding Note: Patient tolerating Nepro at 50mL/hr goal rate with 100mL water flush every 4 hours. Residuals 240mL and below. Last recorded weight is 116.2kg which is decreased from last review. I/O noted. Bowel Motility: No BM documented since 06/03/20. Patient continues on Reglan, and MD adding Miralax today. Labs Reviewed: Hgb (12.3), Hct (38.3), Glu (153), BUN (65), Cr (1.9), Cl (115), Na (146), Alb (2.9) Meds Noted: Albuterol, Reglan, Nimbex, Versed, Decadron, Levophed, Fentanyl, Protonix, Sodium Bicarbonate, Miralax Additional Notes: No documented skin breakdown. Following daily in ICU rounds. Assessing/reassessing every Saturday/Saturday.
[2020-06-09] MEDS: CISATRACURIUM BESYLATE 200 MG in DEXTROSE 5% 80 ML 7.16 ML IV CONT (11:04)
[2020-06-09] MEDS: polyethylene glycoL 3350 17 GM POWD.PACK PO (12:29)
--- NOTE | 2020-06-09 12:35 | WPDINTPN ---
Progress Note: A&P Assessment and Plan (1) Acute hypoxemic respiratory failure: Code(s): J96.01 - Acute respiratory failure with hypoxia Status: Acute Assessment and Plan: Acute hypoxemic respiratory failure likely related COVID-19 pneumonia -patient presented the hospital on 06/03/2019 and was intubated on 06/05/2019 after failing BiPAP and high-flow therapy -chest x-ray and ABG reviewed -low tidal volume strategy to prevent barotrauma and volume trauma. -patient was placed in prone position for last 2 days until this morning. Patient also chemically paralyzed for patient ventilator synchrony -oxygen requirement has improved and patient is on 12 of PEEP and 60% FiO2. Continue to wean - Increase rate respiratory to 28 -patient switched to supine position this morning will placed back in prone position after 6 hours - continue bronchodilators -completed Rocephin and azithromycin for 5 day course (2) COVID-19: Code(s): U07.1 - COVID-19 Status: Acute Assessment and Plan: COVID-19 -results positive 06/03/2020 -patient started on dexamethasone on 06/04/2020 -not a candidate for Remdesivir due to acute on chronic renal failure -received a unit of convalescent plasma 06/05 -continue droplet, airborne and contact isolation/precautions -monitor inflammatory markers and trend (3) Acute on chronic renal insufficiency: Code(s): N28.9 - Disorder of kidney and ureter, unspecified; N18.9 - Chronic kidney disease, unspecified Status: Acute Assessment and Plan: Acute on chronic kidney disease likely related to hypertension, prerenal, COVID-19 -nephrology following the patient -renal ultrasound was unremarkable -patient now has a Aponte catheter, will continue monitor urine output, electrolytes and renal function -creatinine improving -increase free water free water flushes for hypochloremia and hyponatremia (4) DVT prophylaxis: Code(s): Z29.9 - Encounter for prophylactic measures, unspecified Status: Acute Assessment and Plan: Lovenox 40 mg SQ q.12 hours (5) Dietary counseling and surveillance: Code(s): Z71.3 - Dietary counseling and surveillance Status: Acute Assessment and Plan: Reglan was added as today and patient is now tolerating tube feeds P.r.n. MiraLax and Dulcolax added for constipation Stress ulcer prophylaxis: Protonix (6) Hypotension: Code(s): I95.9 - Hypotension, unspecified Status: Acute Assessment and Plan: Likely secondary to sedation and positive pressure ventilation. Patient has required off and on low-dose Levophed support for blood pressure currently off Additional Plan Code status: Full code Critical care time spent: 30 minutes Due to a high probability of clinically significant, life threatening deterioration, the patient required my highest level of preparedness to intervene emergently and I personally spent this critical care time directly and personally managing the patient. This critical care time included obtaining a history; examining the patient; pulse oximetry; ordering and review of studies; arranging urgent treatment with development of a management plan; evaluation of patient's response to treatment; frequent reassessment; and discussions with other providers. It was exclusive of separately billable procedures and treating other patients and teaching time. Please see Assessment and Plan section and the rest of the note for further information on patient assessment and treatment Subjective Date/time seen: 06/09/20 12:35 Overnight events reviewed. Afebrile Continues to be on mechanical ventilation. Continues to be on sedation and neuromuscular blockers Placed in prone position overnight Off Levophed this morning Vitals acceptable Interval history: Date of visit 06/07. 60-year-old male with acute respiratory failure and renal failure with COVID pneumonia. 06/05 intubated and continues on [facility]
[2020-06-09] MEDS: NOREPINEPHRINE 8 MG/D5W 250 ML 8 MG/250 ML BAG 3.75 MG IV CONT (13:36)
[2020-06-09] MEDS: NOREPINEPHRINE 8 MG/D5W 250 ML 8 MG/250 ML BAG 7.5 MG IV CONT (15:30)
--- NOTE | 2020-06-09 16:46 | PM.PNNEP ---
Progress Note: A&P Assessment and Plan (1) SUPA (acute kidney injury): Code(s): N17.9 - Acute kidney failure, unspecified Status: Acute Assessment and Plan: presumably due to acute illness and COVID-19 evaluation to date demonstrates pre-renal urine electrolytes and normal renal ultrasound no critical electrolytes and making urine with improvement in creatinine noted follow trend of repeat labs and urine output (2) Stage 3a chronic kidney disease: Code(s): N18.31 - Chronic kidney disease, stage 3a Status: Chronic Assessment and Plan: baseline creatinine runs around 1.5mg/dl this is likely secondary to hypertension (3) Acute hypoxemic respiratory failure: Code(s): J96.01 - Acute respiratory failure with hypoxia Status: Acute Assessment and Plan: chest x-ray shows findings consistent with COVID-19 currently intubated and on mechanical ventilation finish course of antibiotics continue current strategy/therapy (4) COVID-19: Code(s): U07.1 - COVID-19 Status: Acute Assessment and Plan: on dexamethasone since 06/04/20 not a candidate for Remdesivir due to acute on chronic renal failure s/p convalescent plasma 06/05/20 continue droplet/airborne/contact isolation + precautions monitor inflammatory markers (5) Hypernatremia: Code(s): E87.0 - Hyperosmolality and hypernatremia Status: Acute Assessment and Plan: due to free water deficit titrate free water flushes for correction (6) Hypotension: Code(s): I95.9 - Hypotension, unspecified Status: Acute Assessment and Plan: on low dose levophred due to sedation and need for positive pressure ventilation (7) Anemia: Code(s): D64.9 - Anemia, unspecified Status: Acute Assessment and Plan: mild at this time probably related to acute illness, SUPA, and CKD follow trend of H/H Will continue to follow. Subjective Date/time seen: 06/09/20 16:46 Remains on ventilator support but has been weaned off levoped earlier today; no significant change noted; no apparent distress and no events overnight or earlier this AM. Exam Narrative: Exam Narrative: General: WD/WN male intubated/on ventilator Heart: normal S1 and S2; no rub Lungs: coarse breath sounds throughout Abdomen: soft, nontender, nondistended, positive bowel sounds Extremities: no cyanosis or clubbing; no edema Skin: warm and dry Objective Data Vital Signs Vital Signs: Vital Signs Temp Pulse Resp BP Pulse Ox 06/09/20 16:44 88 26 H 06/09/20 16:40 106 H 91 06/09/20 16:00 36.1 C L 100 26 H 104/72 92 06/09/20 15:30 98 84/60 L 06/09/20 15:02 99 92 Intake/Output Intake/Output: Intake & Output 06/06/20 06/07/20 06/08/20 06/09/20 23:59 23:59 23:59 23:59 Intake Total 1060 1569.0 1872.9 1686.1 Output Total 1550 1450 1750 1675 Balance -490 119.0 122.9 11.1 Meds/Results Medications: Active Medications Generic Name Dose Route Start Last Admin Trade Name Freq PRN Reason Stop Dose Admin Albuterol 2.5 mg 06/04/20 12:00 06/09/20 16:45 Albuterol Sulfate Neb 2.5 Mg/0.5 Ml Inh INHALATION 2.5 mg Q4HRT EMANUEL Administration Bisacodyl 10 mg 06/09/20 10:30 Bisacodyl 10 Mg Suppository RECTAL QAM PRN Constipation Dexamethasone Sodium Phosphate 6 mg 06/04/20 09:00 06/09/20 08:59 Dexamethasone Sod Phos Inj 4 Mg/Ml Vial IV PUSH 06/13/20 09:01 6 mg DAILY EMANUEL Administration Enoxaparin Sodium 40 mg 06/05/20 21:00 06/09/20 08:58 Enoxaparin 40 Mg/0.4 Ml Syringe SUB-Q 40 mg Q12HR EMANUEL Administration Fentanyl Citrate 2,500 mcg in 250 mls @ 15 mls/hr 06/05/20 14:50 06/09/20 18:21 Fentanyl 2,500 Mcg/Ns 250 Ml IV CONT 150 mcg/hr .[id number] EMANUEL 15 mls/hr Titration Protocol 150 MCG/HR Midazolam HCl 100 mg in 100 mls @ 7 mls/hr 06/05/20 14:50 06/09/20 18:20 Versed
--- NOTE | 2020-06-09 16:46 | P.PNNP_ITS ---
Progress Note: A&P Assessment and Plan (1) SUPA (acute kidney injury): Code(s): N17.9 - Acute kidney failure, unspecified Status: Acute Assessment and Plan: * presumably due to acute illness and COVID-19 * evaluation to date demonstrates pre-renal urine electrolytes and normal renal ultrasound * no critical electrolytes and making urine with improvement in creatinine noted * follow trend of repeat labs and urine output (2) Stage 3a chronic kidney disease: Code(s): N18.31 - Chronic kidney disease, stage 3a Status: Chronic Assessment and Plan: * baseline creatinine runs around 1.5mg/dl * this is likely secondary to hypertension (3) Acute hypoxemic respiratory failure: Code(s): J96.01 - Acute respiratory failure with hypoxia Status: Acute Assessment and Plan: * chest x-ray shows findings consistent with COVID-19 * currently intubated and on mechanical ventilation * finish course of antibiotics * continue current strategy/therapy (4) COVID-19: Code(s): U07.1 - COVID-19 Status: Acute Assessment and Plan: * on dexamethasone since 06/04/20 * not a candidate for Remdesivir due to acute on chronic renal failure * s/p convalescent plasma 06/05/20 * continue droplet/airborne/contact isolation + precautions * monitor inflammatory markers (5) Hypernatremia: Code(s): E87.0 - Hyperosmolality and hypernatremia Status: Acute Assessment and Plan: * due to free water deficit * titrate free water flushes for correction (6) Hypotension: Code(s): I95.9 - Hypotension, unspecified Status: Acute Assessment and Plan: * on low dose levophred * due to sedation and need for positive pressure ventilation (7) Anemia: Code(s): D64.9 - Anemia, unspecified Status: Acute Assessment and Plan: * mild at this time * probably related to acute illness, SUPA, and CKD * follow trend of H/H Will continue to follow. Subjective Date/time seen: 06/09/20 16:46 Remains on ventilator support but has been weaned off levoped earlier today; no significant change noted; no apparent distress and no events overnight or earlier this AM. Exam Narrative: Exam Narrative: General: WD/WN male intubated/on ventilator Heart: normal S1 and S2; no rub Lungs: coarse breath sounds throughout Abdomen: soft, nontender, nondistended, positive bowel sounds Extremities: no cyanosis or clubbing; no edema Skin: warm and dry Objective Data Vital Signs Vital Signs: Vital Signs Temp Pulse Resp BP Pulse Ox 06/09/20 16:44 88 26 H 06/09/20 16:40 106 H 91 06/09/20 16:00 36.1 C L 100 26 H 104/72 92 06/09/20 15:30 98 84/60 L 06/09/20 15:02 99 92 Intake/Output Intake/Output: Intake & Output 06/06/20 06/07/20 06/08/20 06/09/20 23:59 23:59 23:59 23:59 Intake Total 1060 1569.0 1872.9 1686.1 Output Total 1550 1450 1750 1675 Balance -490 119.0 122.9 11.1 Meds/Results Medications: Active Medications Generic Name Dose Route Start Last Admin Trade Name Freq PRN Reason Stop Dose Admin Albuterol 2.5 mg 06/04/20 12:00 06/09/20 16:45 Albuterol Sulfate Neb 2.5 Mg/0.5 Ml Inh INHALATION 2.5 mg Q4HRT EMANUEL Administration
[2020-06-09] MEDS: BISACODYL 10 MG SUPPOSITORY RECTAL (20:33)
[2020-06-09] MEDS: FENTANYL 2,500MCG/NS250ML(*CRX 2,500 MCG/250 ML BAG 15 MCG IV CONT (20:52)
[2020-06-10] VITALS (43 sets, daily range): BP systolic 90–138; BP diastolic 56–95; PULSE 82–107; RESP 25–26; TEMP 36.3–37.5; O2SAT 89–100
[2020-06-10] MEDS: METOCLOPRAMIDE HCL 10 MG/10 ML SOLN UDC 5 MG PO ×5 (00:12→23:50)
[2020-06-10] MEDS: CISATRACURIUM BESYLATE 200 MG in DEXTROSE 5% 80 ML 10.74 ML IV CONT ×3 (00:18→18:20)
[2020-06-10 00:24] LABS: Glucose Point of Care 153 (65-105)
[2020-06-10] MEDS: ALBUTEROL SULFATE NEB 2.5 MG/0.5 ML INH INHALATION ×4 (02:30→20:21)
[2020-06-10 04:38] LABS: Alveolar/Arterial O2 Gradient 194.1 mmHg; Base Excess ABG 1.2 mEq/l (+/-2.0); Carboxyhemoglobin 0.3 % THb (0-2.0); Fractional Inspired Oxygen 45 %; HCO3 ABG 26.5 mEq/l (22.0-26.0); Methemoglobin ABG 0.3 %THb (0-1.5); Oxygen Content ABG 17.1 %vol (16.0-22.0); Oxygen Saturation ABG 95.1 % (95.0-100.0); Oxyhemoglobin 94.1 % THb (90.0-100.0); PCO2 ABG 44.7 mmHg (35.0-45.0); PO2 ABG 75.9 mmHg (80.0-100.0); PO2 FiO2 Ratio Arterial Blood 1.69 %; Reduced Hemoglobin 5.3 %THb (0-5.0); Total Hemoglobin 12.9 g/dL (12.0-18.0); pH ABG 7.391 (7.350-7.450)
[2020-06-10 04:40] LABS: Hematocrit 38.7 % (42.0-52.0); Hemoglobin 12.3 g/dL (14.0-18.0); Mean Corpuscular HGB Conc 31.8 g/dl (32-36); Mean Corpuscular Hemoglobin 30.6 pg (26-34); Mean Corpuscular Volume 96.3 fl (80-100); Mean Platelet Volume 10.3 fl (7.4-10.4); Platelet Count Result 290 k/mm3 (150-375); Red Blood Count 4.02 M/mm3 (4.6-6.20); White Blood Count 7.7 K/mm3 (4.5-10.0)
[2020-06-10 04:41] LABS: Arterial Blood Gas Ventilator rate 26 /MIN; Device VENTILATOR; Modified Allen's Test Unable to perform; Site Drawn LEFT RADIAL
[2020-06-10 04:42] LABS: Arterial Blood Gas PEEP 12 cmH2O; Arterial Blood Gas Tidal Volume 450 ml; Arterial Blood Gas Vent Mode ASSIST CONTROL
[2020-06-10 04:57] LABS: Alanine Aminotransferase 44 U/L (4-50); Albumin Level 2.8 g/dL (3.5-5.1); Alkaline Phosphatase 100 U/L (38-126); Anion Gap -1 mmol/L (8-16); Aspartate Amino Transferase 25 U/L (17-59); Bilirubin,Total 0.7 mg/dL (0.2-1.3); Blood Urea Nitrogen 74 mg/dL (9-20); Carbon Dioxide 34 mmol/L (22-30); Chloride 115 mmol/L (98-107); Estimated CRCL calculation 51 ml/min; Estimated Glomerular Filt Rate 38; Glucose 183 mg/dL (75-110); Magnesium 2.3 mg/dL (1.6-2.3); Potassium 5.2 mmol/L (3.4-5.0); Sodium 148 mmol/L (137-145)
[2020-06-10] MEDS: CENTRAL LINE FLUSH 10 ML IV PUSH ×3 (05:39→19:52)
[2020-06-10] MEDS: ENOXAPARIN 40 MG/0.4 ML SYRINGE SUB-Q ×2 (08:05→19:52)
[2020-06-10] MEDS: DEXAMETHASONE SOD PHOS INJ 4 MG/ML VIAL 6 MG IV PUSH (08:05)
[2020-06-10] MEDS: SODIUM BICARBONATE TAB 650 MG TABLET 1300 MG PO (08:06)
[2020-06-10] MEDS: PANTOPRAZOLE SODIUM IV 40 MG VIAL IV PUSH (08:06)
--- NOTE | 2020-06-10 09:21 | WPDINTPN ---
Progress Note: A&P Assessment and Plan (1) Acute hypoxemic respiratory failure: Code(s): J96.01 - Acute respiratory failure with hypoxia Status: Acute Assessment and Plan: Acute hypoxemic respiratory failure likely related COVID-19 pneumonia -patient presented the hospital on 06/03/2019 and was intubated on 06/05/2019 after failing BiPAP and high-flow therapy -chest x-ray and ABG reviewed. Chest x-ray shows persistent bilateral infiltrate as expected -low tidal volume strategy to prevent barotrauma and volume trauma. -patient was placed in prone position for last few days. Patient also chemically paralyzed for patient ventilator synchrony -oxygen requirement has improved and patient is on 10 of PEEP and 45% FiO2. Continue to wean -continue rate respiratory to 28 -patient will be switched to supine position this morning will placed back in prone position after 6 hours - continue bronchodilators -completed Rocephin and azithromycin for 5 day course (2) COVID-19: Code(s): U07.1 - COVID-19 Status: Acute Assessment and Plan: COVID-19 -results positive 06/03/2020 -patient started on dexamethasone on 06/04/2020 -not a candidate for Remdesivir due to acute on chronic renal failure -received a unit of convalescent plasma 06/05 -continue droplet, airborne and contact isolation/precautions -monitor inflammatory markers and trend (3) Acute on chronic renal insufficiency: Code(s): N28.9 - Disorder of kidney and ureter, unspecified; N18.9 - Chronic kidney disease, unspecified Status: Acute Assessment and Plan: Acute on chronic kidney disease likely related to hypertension, prerenal, COVID-19 -nephrology following the patient -renal ultrasound was unremarkable -patient now has a Aponte catheter, will continue monitor urine output, electrolytes and renal function -creatinine improving -will increase free water free water flushes for hypochloremia and hyponatremia -Kayexalate per tube x1 -discontinue p.o. bicarb (4) DVT prophylaxis: Code(s): Z29.9 - Encounter for prophylactic measures, unspecified Status: Acute Assessment and Plan: Lovenox 40 mg SQ q.12 hours (5) Dietary counseling and surveillance: Code(s): Z71.3 - Dietary counseling and surveillance Status: Acute Assessment and Plan: Reglan was added as today and patient is now tolerating tube feeds P.r.n. MiraLax and Dulcolax added for constipation Stress ulcer prophylaxis: Protonix (6) Hypotension: Code(s): I95.9 - Hypotension, unspecified Status: Acute Assessment and Plan: Likely secondary to sedation and positive pressure ventilation. Patient has required off and on low-dose Levophed support for blood pressure currently off Additional Plan Code status: Full code Critical care time spent: 30 minutes Due to a high probability of clinically significant, life threatening deterioration, the patient required my highest level of preparedness to intervene emergently and I personally spent this critical care time directly and personally managing the patient. This critical care time included obtaining a history; examining the patient; pulse oximetry; ordering and review of studies; arranging urgent treatment with development of a management plan; evaluation of patient's response to treatment; frequent reassessment; and discussions with other providers. It was exclusive of separately billable procedures and treating other patients and teaching time. Please see Assessment and Plan section and the rest of the note for further information on patient assessment and treatment Subjective Date/time seen: 06/10/20 0815 Overnight events reviewed.Afebrile Continues to be on mechanical ventilation Continues to be on sedation and neuromuscular blockers Off Levophed Adequate urine output Vitals acceptable Interval history: Date of visit 06/07. 60-year-old male with acute respiratory
--- NOTE | 2020-06-10 11:08 | PCDIET ---
Nutrition Follow-Up Complete: Nutrition Diagnosis: Involuntary weight loss related to decreased appetite as evidenced by reported and documented weight loss of 4% x 2 weeks. Nutrition Goal: Patient to meet estimated nutritional needs. Goal met. Patient tolerating Nepro at 50mL/hr goal rate with 100mL water flush every 4 hours. Residuals 75mL and below. Last recorded weight is 115.1 kg which is decreased from last review, despite +I/O. Will monitor. Bowel Motility: BM x 3 today. If multiple BMs continue, would hold prn Miralax and Dulcolax. Labs Reviewed: Hgb (12.3), Hct (38.7), Glu (183), BUN (74), Cr (1.8), K (5.2), Na (148), Alb (2.8) Meds Noted: Albuterol, Nimbex, Reglan, Miralax, Dulcolax, Sodium Bicarbonate, Decadron, Fentanyl, Versed, Levophed, Protonix Additional Notes: No documented skin breakdown. Will continue to monitor with same goal. Nutrition Monitoring and Evaluation: Follow up every Saturday/Saturday.
[2020-06-10] MEDS: SODIUM POLYSTYRENE SULFONONATE 15 GM/60 ML BTL 30 GM PO (11:39)
[2020-06-10 11:50] LABS: Glucose Point of Care 188 (65-105)
[2020-06-10] MEDS: FENTANYL 2,500MCG/NS250ML(*CRX 2,500 MCG/250 ML BAG 12.5 MCG IV CONT (13:39)
--- NOTE | 2020-06-10 14:20 | P.PNNP_ITS ---
Progress Note: A&P Assessment and Plan (1) SUPA (acute kidney injury): Code(s): N17.9 - Acute kidney failure, unspecified Status: Acute Assessment and Plan: * presumably due to acute illness and COVID-19 * evaluation to date demonstrates pre-renal urine electrolytes and normal renal ultrasound * no critical electrolytes and making urine with improvement in creatinine noted * follow trend of repeat labs and urine output (2) Stage 3a chronic kidney disease: Code(s): N18.31 - Chronic kidney disease, stage 3a Status: Chronic Assessment and Plan: * baseline creatinine runs around 1.5mg/dl * this is likely secondary to hypertension (3) Acute hypoxemic respiratory failure: Code(s): J96.01 - Acute respiratory failure with hypoxia Status: Acute Assessment and Plan: * chest x-ray shows findings consistent with COVID-19 * currently intubated and on mechanical ventilation * finish course of antibiotics * continue current strategy/therapy (4) COVID-19: Code(s): U07.1 - COVID-19 Status: Acute Assessment and Plan: * on dexamethasone since 06/04/20 * not a candidate for Remdesivir due to acute on chronic renal failure * s/p convalescent plasma 06/05/20 * continue droplet/airborne/contact isolation + precautions * monitor inflammatory markers (5) Hypernatremia: Code(s): E87.0 - Hyperosmolality and hypernatremia Status: Acute Assessment and Plan: * due to free water deficit * titrate free water flushes for correction (6) Hypotension: Code(s): I95.9 - Hypotension, unspecified Status: Acute Assessment and Plan: * on low dose levophred * due to sedation and need for positive pressure ventilation (7) Anemia: Code(s): D64.9 - Anemia, unspecified Status: Acute Assessment and Plan: * mild at this time * probably related to acute illness, SUPA, and CKD * follow trend of H/H Will continue to follow. Subjective Date/time seen: 06/10/20 14:20 No real significant change since I last saw him; remains on ventilator support; on/off use of levophed to maintain blood pressure; continues to make good urine output; no new events/issues overnight or earlier this AM. Exam Narrative: Exam Narrative: General: WD/WN male intubated/on ventilator Heart: normal S1 and S2; no rub Lungs: coarse breath sounds throughout Abdomen: soft, nontender, nondistended, positive bowel sounds Extremities: no cyanosis or clubbing; no edema Skin: warm and intact Objective Data Vital Signs Vital Signs: Vital Signs Temp Pulse Resp BP Pulse Ox 06/10/20 14:00 93 26 H 125/84 89 L 06/10/20 13:39 93 26 H 06/10/20 12:00 36.5 C 93 26 H 90/56 L 100 06/10/20 11:38 96 26 H 06/10/20 11:00 92 93 06/10/20 10:00 100 26 H 111/74 92 06/10/20 09:40 101 H 26 H 109/75 06/10/20 09:37 101 H 26 H 109/75 06/10/20 08:59 91 93 06/10/20 08:52 88 26 H 06/10/20 08:00 36.9 C 97 26 H 102/75 93 06/10/20 06:00 91 26 H 102/75 95 06/10/20 04:54 82 26 H 06/10/20 04:42 95 06/10/20 04:00 37.5 C 89 26 H 96/70 L 96 06/10/20 02:40 93 26 H 06/10/20 02:30 91 26 H 95 06/10/20 02:00 97 26 H 95/69 L 96 06/10/20 00:18 102 H 26 H
--- NOTE | 2020-06-10 14:20 | PM.PNNEP ---
Progress Note: A&P Assessment and Plan (1) SUPA (acute kidney injury): Code(s): N17.9 - Acute kidney failure, unspecified Status: Acute Assessment and Plan: presumably due to acute illness and COVID-19 evaluation to date demonstrates pre-renal urine electrolytes and normal renal ultrasound no critical electrolytes and making urine with improvement in creatinine noted follow trend of repeat labs and urine output (2) Stage 3a chronic kidney disease: Code(s): N18.31 - Chronic kidney disease, stage 3a Status: Chronic Assessment and Plan: baseline creatinine runs around 1.5mg/dl this is likely secondary to hypertension (3) Acute hypoxemic respiratory failure: Code(s): J96.01 - Acute respiratory failure with hypoxia Status: Acute Assessment and Plan: chest x-ray shows findings consistent with COVID-19 currently intubated and on mechanical ventilation finish course of antibiotics continue current strategy/therapy (4) COVID-19: Code(s): U07.1 - COVID-19 Status: Acute Assessment and Plan: on dexamethasone since 06/04/20 not a candidate for Remdesivir due to acute on chronic renal failure s/p convalescent plasma 06/05/20 continue droplet/airborne/contact isolation + precautions monitor inflammatory markers (5) Hypernatremia: Code(s): E87.0 - Hyperosmolality and hypernatremia Status: Acute Assessment and Plan: due to free water deficit titrate free water flushes for correction (6) Hypotension: Code(s): I95.9 - Hypotension, unspecified Status: Acute Assessment and Plan: on low dose levophred due to sedation and need for positive pressure ventilation (7) Anemia: Code(s): D64.9 - Anemia, unspecified Status: Acute Assessment and Plan: mild at this time probably related to acute illness, SUPA, and CKD follow trend of H/H Will continue to follow. Subjective Date/time seen: 06/10/20 14:20 No real significant change since I last saw him; remains on ventilator support; on/off use of levophed to maintain blood pressure; continues to make good urine output; no new events/issues overnight or earlier this AM. Exam Narrative: Exam Narrative: General: WD/WN male intubated/on ventilator Heart: normal S1 and S2; no rub Lungs: coarse breath sounds throughout Abdomen: soft, nontender, nondistended, positive bowel sounds Extremities: no cyanosis or clubbing; no edema Skin: warm and intact Objective Data Vital Signs Vital Signs: Vital Signs Temp Pulse Resp BP Pulse Ox 06/10/20 14:00 93 26 H 125/84 89 L 06/10/20 13:39 93 26 H 06/10/20 12:00 36.5 C 93 26 H 90/56 L 100 06/10/20 11:38 96 26 H 06/10/20 11:00 92 93 06/10/20 10:00 100 26 H 111/74 92 06/10/20 09:40 101 H 26 H 109/75 06/10/20 09:37 101 H 26 H 109/75 06/10/20 08:59 91 93 06/10/20 08:52 88 26 H 06/10/20 08:00 36.9 C 97 26 H 102/75 93 06/10/20 06:00 91 26 H 102/75 95 06/10/20 04:54 82 26 H 06/10/20 04:42 95 06/10/20 04:00 37.5 C 89 26 H 96/70 L 96 06/10/20 02:40 93 26 H 06/10/20 02:30 91 26 H 95 06/10/20 02:00 97 26 H 95/69 L 96 06/10/20 00:18 102 H 26 H 138/95 H 06/10/20 00:15 95 06/10/20 00:00 37.5 C 95 26 H 138/95 H 94 06/09/20 23:48 90 95 06/09/20 22:00 104 H 26 H 148/96 H 94 06/09/20 21:06 97 26 H 06/09/20 20:57 99 93 06/09/20 20:56 99 26 H 06/09/20 20:52 101 H 26 H 06/09/20 20:30 99 26 H 126/84 06/09/20 20:00 37.4 C 100 26 H 126/84 93 Intake/Output Intake/Output: Intake & Output 06/07/20 06/08/20 06/09/20 06/10/20 23:59 23:59 23:59 23:59 Intake Total 1569.0 1872.9 1936.1 2170 Output Total 1450 1750 1675 1800 Balance 119.0 122.9 261.1 370 Meds/Results Medications: Active Medications Generic Name Dose Route
[2020-06-10 18:06] LABS: Glucose Point of Care 193 (65-105)
[2020-06-11] VITALS (50 sets, daily range): BP systolic 93–153; BP diastolic 62–114; PULSE 88–129; RESP 26–28; TEMP 36.8–38; O2SAT 92–97
[2020-06-11] MEDS: ALBUTEROL SULFATE NEB 2.5 MG/0.5 ML INH INHALATION ×4 (02:06→20:38)
[2020-06-11] MEDS: CISATRACURIUM BESYLATE 200 MG in DEXTROSE 5% 80 ML 14.32 ML IV CONT (04:40)
[2020-06-11 04:45] LABS: Alveolar/Arterial O2 Gradient 471.9 mmHg; Carboxyhemoglobin 0.1 % THb (0-2.0); Device VENTILATOR; Fractional Inspired Oxygen 85 %; HCO3 ABG 28.5 mEq/l (22.0-26.0); Methemoglobin ABG 0.4 %THb (0-1.5); Modified Allen's Test Pass; Oxygen Content ABG 19.1 %vol (16.0-22.0); Oxygen Saturation ABG 93.4 % (95.0-100.0); PCO2 ABG 57.7 mmHg (35.0-45.0); PO2 ABG 74.3 mmHg (80.0-100.0); PO2 FiO2 Ratio Arterial Blood 0.87 %; Reduced Hemoglobin 6.5 %THb (0-5.0); Site Drawn LEFT RADIAL; Total Hemoglobin 14.6 g/dL (12.0-18.0); pH ABG 7.312 (7.350-7.450)
[2020-06-11 04:46] LABS: Arterial Blood Gas PEEP 10 cmH2O; Arterial Blood Gas Tidal Volume 450 ml; Arterial Blood Gas Vent Mode CMV; Arterial Blood Gas Ventilator rate 26 /MIN
[2020-06-11 05:21] LABS: Hematocrit 40.9 % (42.0-52.0); Hemoglobin 12.8 g/dL (14.0-18.0); Mean Corpuscular HGB Conc 31.3 g/dl (32-36); Mean Corpuscular Hemoglobin 30.8 pg (26-34); Mean Corpuscular Volume 98.6 fl (80-100); Mean Platelet Volume 10.7 fl (7.4-10.4); Platelet Count Result 295 k/mm3 (150-375); Red Blood Count 4.15 M/mm3 (4.6-6.20); Red Cell Distribution Width 14.1 % (11.5-14.5); White Blood Count 9.7 K/mm3 (4.5-10.0)
[2020-06-11 05:38] LABS: Alanine Aminotransferase 77 U/L (4-50); Albumin Level 2.9 g/dL (3.5-5.1); Alkaline Phosphatase 126 U/L (38-126); Anion Gap -1 mmol/L (8-16); Aspartate Amino Transferase 51 U/L (17-59); Bilirubin,Total 0.7 mg/dL (0.2-1.3); Blood Urea Nitrogen 86 mg/dL (9-20); Calcium 10.6 mg/dL (8.4-10.2); Carbon Dioxide 37 mmol/L (22-30); Chloride 112 mmol/L (98-107); Estimated CRCL calculation 51 ml/min; Estimated Glomerular Filt Rate 38; Glucose 157 mg/dL (75-110); Lactate Dehydrogenase 566 U/L (313-618); Magnesium 2.3 mg/dL (1.6-2.3); Potassium 5.4 mmol/L (3.4-5.0); Sodium 148 mmol/L (137-145)
[2020-06-11 05:52] LABS: D Dimer 11.53 ug/mL (<0.48)
[2020-06-11] MEDS: METOCLOPRAMIDE HCL 10 MG/10 ML SOLN UDC 5 MG PO ×4 (06:05→23:47)
[2020-06-11] MEDS: CENTRAL LINE FLUSH 10 ML IV PUSH ×3 (06:06→20:32)
[2020-06-11] MEDS: PANTOPRAZOLE SODIUM IV 40 MG VIAL IV PUSH (08:46)
[2020-06-11] MEDS: ENOXAPARIN 40 MG/0.4 ML SYRINGE SUB-Q ×2 (08:46→20:32)
[2020-06-11] MEDS: DEXAMETHASONE SOD PHOS INJ 4 MG/ML VIAL 6 MG IV PUSH (08:46)
--- NOTE | 2020-06-11 09:11 | WPDINTPN ---
Progress Note: A&P Assessment and Plan (1) Acute hypoxemic respiratory failure: Code(s): J96.01 - Acute respiratory failure with hypoxia Status: Acute Assessment and Plan: Acute hypoxemic respiratory failure likely related COVID-19 pneumonia -patient presented the hospital on 06/03/2019 and was intubated on 06/05/2019 after failing BiPAP and high-flow therapy -chest x-ray and ABG reviewed. Chest x-ray shows persistent bilateral infiltrate as expected -low tidal volume strategy to prevent barotrauma and volume trauma. -patient was placed in prone position for last few days along with neuromuscular blockers and patient oxygen requirement had improved -yesterday patient was on 10 of PEEP and 45% FiO2. I kept patient supine through night to see how he does. Patient was also off neuromuscular blockers for close to 2 hours last night as the bagged ran out and it took time for pharmacy to send replacement -FiO2 had to be increased and patient is now on 85% FiO2 and ABG this morning showed worsened hypercarbia and acidosis -increase PEEP to 12 and respiratory rate to 30 -continue neuromuscular blockers. Will prone patient again today - continue bronchodilators -completed Rocephin and azithromycin for 5 day course (2) COVID-19: Code(s): U07.1 - COVID-19 Status: Acute Assessment and Plan: COVID-19 -results positive 06/03/2020 -patient started on dexamethasone on 06/04/2020 -not a candidate for Remdesivir due to acute on chronic renal failure -received a unit of convalescent plasma 06/05 -continue droplet, airborne and contact isolation/precautions -monitor inflammatory markers and trend (3) Acute on chronic renal insufficiency: Code(s): N28.9 - Disorder of kidney and ureter, unspecified; N18.9 - Chronic kidney disease, unspecified Status: Acute Assessment and Plan: Acute on chronic kidney disease likely related to hypertension, prerenal, COVID-19 -nephrology following the patient -renal ultrasound was unremarkable -patient now has a Aponte catheter, will continue monitor urine output, electrolytes and renal function -creatinine has stabilized around 1.8 -BUN is slightly getting worse but patient has good urine output at this time -potassium elevated to 5.4 today which could be secondary to renal function versus respiratory acidosis -continue free water free water flushes for hypochloremia and hyponatremia -Kayexalate per tube x1 -off p.o. bicarb (4) DVT prophylaxis: Code(s): Z29.9 - Encounter for prophylactic measures, unspecified Status: Acute Assessment and Plan: Lovenox 40 mg SQ q.12 hours (5) Dietary counseling and surveillance: Code(s): Z71.3 - Dietary counseling and surveillance Status: Acute Assessment and Plan: Reglan was added as today and patient is now tolerating tube feeds P.r.n. MiraLax and Dulcolax added for constipation Stress ulcer prophylaxis: Protonix (6) Hypotension: Code(s): I95.9 - Hypotension, unspecified Status: Acute Assessment and Plan: Likely secondary to sedation and positive pressure ventilation. Patient has required off and on low-dose Levophed support for blood pressure currently off Additional Plan Code status: Full code Critical care time spent: 32 minutes Due to a high probability of clinically significant, life threatening deterioration, the patient required my highest level of preparedness to intervene emergently and I personally spent this critical care time directly and personally managing the patient. This critical care time included obtaining a history; examining the patient; pulse oximetry; ordering and review of studies; arranging urgent treatment with development of a management plan; evaluation of patient's response to treatment; frequent reassessment; and discussions with other providers. It was exclusive of separately billable procedures and treating other patients and teaching t
[2020-06-11] MEDS: FENTANYL 2,500MCG/NS250ML(*CRX 2,500 MCG/250 ML BAG 12.5 MCG IV CONT (11:10)
[2020-06-11] MEDS: SODIUM POLYSTYRENE SULFONONATE 15 GM/60 ML BTL 30 GM PO (11:12)
[2020-06-11] MEDS: SODIUM BICARBONATE 8.4% 50 MEQ/50 ML SYRINGE IV PUSH (11:12)
--- NOTE | 2020-06-11 12:44 | P.PNNP_ITS ---
Progress Note: A&P Assessment and Plan (1) SUPA (acute kidney injury): Code(s): N17.9 - Acute kidney failure, unspecified Status: Acute Assessment and Plan: * presumably due to acute illness and COVID-19 * evaluation to date demonstrates pre-renal urine electrolytes and normal renal ultrasound * no critical electrolytes and making urine with improvement in creatinine noted * follow trend of repeat labs and urine output (2) Stage 3a chronic kidney disease: Code(s): N18.31 - Chronic kidney disease, stage 3a Status: Chronic Assessment and Plan: * baseline creatinine runs around 1.5mg/dl * this is likely secondary to hypertension (3) Acute hypoxemic respiratory failure: Code(s): J96.01 - Acute respiratory failure with hypoxia Status: Acute Assessment and Plan: * chest x-ray shows findings consistent with COVID-19 * currently intubated and on mechanical ventilation * finish course of antibiotics * continue current strategy/therapy (4) COVID-19: Code(s): U07.1 - COVID-19 Status: Acute Assessment and Plan: * on dexamethasone since 06/04/20 * not a candidate for Remdesivir due to acute on chronic renal failure * s/p convalescent plasma 06/05/20 * continue droplet/airborne/contact isolation + precautions * monitor inflammatory markers (5) Hypernatremia: Code(s): E87.0 - Hyperosmolality and hypernatremia Status: Acute Assessment and Plan: * due to free water deficit * titrate free water flushes for correction (6) Hypotension: Code(s): I95.9 - Hypotension, unspecified Status: Acute Assessment and Plan: * on low dose levophed PRN * due to sedation and need for positive pressure ventilation (7) Anemia: Code(s): D64.9 - Anemia, unspecified Status: Acute Assessment and Plan: * mild at this time * probably related to acute illness, SUPA, and CKD * follow trend of H/H Will continue to follow. Subjective Date/time seen: 06/11/20 12:44 No real significant change - remains on ventilator support with adjustment/weaning of FiO2 as tolerated; prone positioning used as tolerated; no events overnight or earlier this AM. Exam Narrative: Exam Narrative: General: WD/WN male intubated/sedated/paralyzed and on ventilator Heart: normal S1 and S2; no rub Lungs: coarse breath sounds throughout Abdomen: soft, nontender, nondistended, positive bowel sounds Extremities: no cyanosis or clubbing; no edema Skin: no rash or nodules Objective Data Vital Signs Vital Signs: Vital Signs Temp Pulse Resp BP Pulse Ox 06/11/20 11:10 107 H 28 H 06/11/20 11:03 110 H 97 06/11/20 09:40 107 H 28 H 06/11/20 08:10 101 H 26 H 06/11/20 08:00 37.0 C 100 26 H 103/66 93 06/11/20 06:04 104 H 26 H 06/11/20 06:03 104 H 26 H 06/11/20 06:02 104 H 26 H 109/63 06/11/20 06:00 102 H 26 H 109/63 94 06/11/20 04:48 97 93 06/11/20 04:40 102 H 26 H 149/97 H 06/11/20 04:39 102 H 26 H 06/11/20 04:38 102 H 26 H 06/11/20 04:00 37.1 C 113 H 26 H 147/84 H 92 06/11/20 02:18 92 26 H 06/11/20 02:09 95 93 06/11/20 02:08 95 26 H 06/11/20 02:00 100 26 H 112/73 92 06/11/20 00:00 36.9 C 99 26 H 101/62 95
--- NOTE | 2020-06-11 12:44 | PM.PNNEP ---
Progress Note: A&P Assessment and Plan (1) SUPA (acute kidney injury): Code(s): N17.9 - Acute kidney failure, unspecified Status: Acute Assessment and Plan: presumably due to acute illness and COVID-19 evaluation to date demonstrates pre-renal urine electrolytes and normal renal ultrasound no critical electrolytes and making urine with improvement in creatinine noted follow trend of repeat labs and urine output (2) Stage 3a chronic kidney disease: Code(s): N18.31 - Chronic kidney disease, stage 3a Status: Chronic Assessment and Plan: baseline creatinine runs around 1.5mg/dl this is likely secondary to hypertension (3) Acute hypoxemic respiratory failure: Code(s): J96.01 - Acute respiratory failure with hypoxia Status: Acute Assessment and Plan: chest x-ray shows findings consistent with COVID-19 currently intubated and on mechanical ventilation finish course of antibiotics continue current strategy/therapy (4) COVID-19: Code(s): U07.1 - COVID-19 Status: Acute Assessment and Plan: on dexamethasone since 06/04/20 not a candidate for Remdesivir due to acute on chronic renal failure s/p convalescent plasma 06/05/20 continue droplet/airborne/contact isolation + precautions monitor inflammatory markers (5) Hypernatremia: Code(s): E87.0 - Hyperosmolality and hypernatremia Status: Acute Assessment and Plan: due to free water deficit titrate free water flushes for correction (6) Hypotension: Code(s): I95.9 - Hypotension, unspecified Status: Acute Assessment and Plan: on low dose levophed PRN due to sedation and need for positive pressure ventilation (7) Anemia: Code(s): D64.9 - Anemia, unspecified Status: Acute Assessment and Plan: mild at this time probably related to acute illness, SUPA, and CKD follow trend of H/H Will continue to follow. Subjective Date/time seen: 06/11/20 12:44 No real significant change - remains on ventilator support with adjustment/weaning of FiO2 as tolerated; prone positioning used as tolerated; no events overnight or earlier this AM. Exam Narrative: Exam Narrative: General: WD/WN male intubated/sedated/paralyzed and on ventilator Heart: normal S1 and S2; no rub Lungs: coarse breath sounds throughout Abdomen: soft, nontender, nondistended, positive bowel sounds Extremities: no cyanosis or clubbing; no edema Skin: no rash or nodules Objective Data Vital Signs Vital Signs: Vital Signs Temp Pulse Resp BP Pulse Ox 06/11/20 11:10 107 H 28 H 06/11/20 11:03 110 H 97 06/11/20 09:40 107 H 28 H 06/11/20 08:10 101 H 26 H 06/11/20 08:00 37.0 C 100 26 H 103/66 93 06/11/20 06:04 104 H 26 H 06/11/20 06:03 104 H 26 H 06/11/20 06:02 104 H 26 H 109/63 06/11/20 06:00 102 H 26 H 109/63 94 06/11/20 04:48 97 93 06/11/20 04:40 102 H 26 H 149/97 H 06/11/20 04:39 102 H 26 H 06/11/20 04:38 102 H 26 H 06/11/20 04:00 37.1 C 113 H 26 H 147/84 H 92 06/11/20 02:18 92 26 H 06/11/20 02:09 95 93 06/11/20 02:08 95 26 H 06/11/20 02:00 100 26 H 112/73 92 06/11/20 00:00 36.9 C 99 26 H 101/62 95 06/10/20 23:49 99 26 H 100/63 06/10/20 23:48 99 26 H 06/10/20 23:04 90 91 06/10/20 22:09 95 26 H 96/61 L 06/10/20 22:00 97 26 H 96/61 L 91 06/10/20 20:34 93 26 H 06/10/20 20:25 96 91 06/10/20 20:24 96 26 H 06/10/20 20:00 107 H 06/10/20 19:47 99 26 H 116/80 06/10/20 19:46 37.2 C 103 H 26 H 116/80 92 06/10/20 18:20 102 H 26 H 104/72 06/10/20 18:00 101 H 26 H 104/72 92 06/10/20 17:42 98 26 H 06/10/20 17:41 100 26 H 111/73 06/10/20 17:40 100 26 H 01/15/21 17:28 91 90 06/10/20 16:00 36.3 C L 98 26 H 126/79 90 06/10/20 15:43 98 26 H
[2020-06-11] MEDS: CISATRACURIUM BESYLATE 200 MG in DEXTROSE 5% 80 ML 10.74 ML IV CONT ×2 (14:21→23:52)
[2020-06-11 16:15] LABS: Alveolar/Arterial O2 Gradient 369.5 mmHg; Base Excess ABG 2.7 mEq/l (+/-2.0); Fractional Inspired Oxygen 75 %; HCO3 ABG 28.9 mEq/l (22.0-26.0); Oxygen Content ABG 18.1 %vol (16.0-22.0); Oxygen Saturation ABG 97.9 % (95.0-100.0); Oxyhemoglobin 96.9 % THb (90.0-100.0); PCO2 ABG 50.7 mmHg (35.0-45.0); PO2 ABG 111.4 mmHg (80.0-100.0); PO2 FiO2 Ratio Arterial Blood 1.49 %; Total Hemoglobin 13.2 g/dL (12.0-18.0); pH ABG 7.373 (7.350-7.450)
[2020-06-11 16:18] LABS: Arterial Blood Gas PEEP 12 cmH2O; Arterial Blood Gas Vent Mode CMV; Arterial Blood Gas Ventilator rate 28 /MIN; Device VENTILATOR; Modified Allen's Test Pass; Site Drawn RIGHT RADIAL
[2020-06-11 16:19] LABS: Arterial Blood Gas Tidal Volume 450 ml
[2020-06-11 16:27] LABS: Anion Gap 0 mmol/L (8-16); Blood Urea Nitrogen 88 mg/dL (9-20); Calcium 9.9 mg/dL (8.4-10.2); Carbon Dioxide 38 mmol/L (22-30); Chloride 111 mmol/L (98-107); Estimated CRCL calculation 54 ml/min; Estimated Glomerular Filt Rate 41; Glucose 233 mg/dL (75-110); Sodium 149 mmol/L (137-145)
--- NOTE | 2020-06-11 17:09 | PM.IMPN ---
Progress Note: A&P Assessment and Plan (1) COVID-19: Code(s): U07.1 - COVID-19 Status: Acute Assessment and Plan: Not started on Remdesivir due to renal failure Dexamethasone day 8. Received convalescent plasma 06/05 Breathing treatments. had 5 days of ceftriaxone and azithromycin (2) Acute hypoxemic respiratory failure: Code(s): J96.01 - Acute respiratory failure with hypoxia Status: Acute Assessment and Plan: Now on ventilator, 06/05, tapering 02 sat (3) Acute on chronic renal insufficiency: Code(s): N28.9 - Disorder of kidney and ureter, unspecified; N18.9 - Chronic kidney disease, unspecified Status: Acute Assessment and Plan: Bun/Cr trending down, with creatinine at 1.7 and had peaked at 4.9 Likely to be pre renal Continue to monitor I/O's strict (4) Gastro-esophageal reflux disease without esophagitis: Code(s): K21.9 - Gastro-esophageal reflux disease without esophagitis Status: Acute Assessment and Plan: PPI Stable. (5) YUDY (obstructive sleep apnea): Code(s): G47.33 - Obstructive sleep apnea (adult) (pediatric) Status: Chronic Assessment and Plan: Now on ventilator support. (6) DVT prophylaxis: Code(s): Z29.9 - Encounter for prophylactic measures, unspecified Status: Acute Assessment and Plan: Lovenox Q 12 with the COVID Subjective Date/time seen: 06/11/20 17:09 Interval history: Date of visit 06/11. 60-year-old male with acute respiratory failure and renal failure with COVID pneumonia. 06/05 intubated and continues on mechanical ventilation and sedation and slowly decreasing 02 requirements until am 06/11 when had to be increased again. Exam Narrative: Exam Narrative: Blood pressure 116/80 pulse is 90 afebrile saturating 92% with FiO2 of 85% and PEEP of 12(had been on FIO2 45 and peep 10 yesterday) In the prone position at present time Lungs distant breath sounds no areas of consolidation CV regular rate rhythm Extremities without edema distal pulses 1+ at best Neuro sedated Objective Data Vital Signs Vital Signs: Vital Signs - 24 hr 06/10/20 17:28 06/10/20 17:40 06/10/20 17:41 Temperature Pulse Rate 91 100 100 Respiratory Rate 26 H 26 H Blood Pressure 111/73 Pulse Oximetry 90 06/10/20 17:42 06/10/20 18:00 06/10/20 18:20 Temperature Pulse Rate 98 101 H 102 H Respiratory Rate 26 H 26 H 26 H Blood Pressure 104/72 104/72 Pulse Oximetry 92 06/10/20 19:46 06/10/20 19:47 06/10/20 20:00 Temperature 37.2 C Pulse Rate 103 H 99 107 H Respiratory Rate 26 H 26 H Blood Pressure 116/80 116/80 Pulse Oximetry 92 06/10/20 20:24 06/10/20 20:25 06/10/20 20:34 Temperature Pulse Rate 96 96 93 Respiratory Rate 26 H 26 H Blood Pressure Pulse Oximetry 91 06/10/20 22:00 06/10/20 22:09 06/10/20 23:04 Temperature Pulse Rate 97 95 90 Respiratory Rate 26 H 26 H Blood Pressure 96/61 L 96/61 L Pulse Oximetry 91 91 06/10/20 23:48 06/10/20 23:49 06/11/20 00:00 Temperature 36.9 C Pulse Rate 99 99 99 Respiratory Rate 26 H 26 H 26 H Blood Pressure 100/63 101/62 Pulse Oximetry 95 06/11/20 02:00 06/11/20 02:08 06/11/20 02:09 Temperature Pulse Rate 100 95 95 Respiratory Rate 26 H 26 H Blood Pressure 112/73 Pulse Oximetry 92 93 06/11/20 02:18 06/11/20 04:00 06/11/20 04:38 Temperature 37.1 C Pulse Rate 92 113 H 102 H Respiratory Rate 26 H 26 H 26 H Blood Pressure 147/84 H Pulse Oximetry 92 06/11/20 04:39 06/11/20 04:40 06/11/20 04:48 Temperature Pulse Rate 102 H 102 H 97 Respiratory Rate 26 H 26 H Blood Pressure 149/97 H Pulse Oximetry 93 06/11/20 06:00 06/11/20 06:02 06/11/20 06:03 Temperature Pulse Rate 102 H 104 H 104 H Respiratory Rate 26 H 26 H 26 H Blood Pressure 109/63 109/63 Pulse Oximetry 94 06/11/20 06:04 06/11/20 08:00 06/11/20 08:10 Temperature 37.0 C Pu
[2020-06-11] MEDS: PROPOFOL IV EMULSION 100 ML 10.53 MG IV CONT (19:02)
[2020-06-11] MEDS: ACETAMINOPHEN 325 MG TABLET 650 MG PO (19:04)
[2020-06-12] VITALS (40 sets, daily range): BP systolic 77–131; BP diastolic 55–86; PULSE 82–124; RESP 28–30; TEMP 35.9–38.1; O2SAT 90–100
[2020-06-12] MEDS: ALBUTEROL SULFATE NEB 2.5 MG/0.5 ML INH INHALATION ×4 (02:35→20:57)
[2020-06-12] MEDS: PROPOFOL IV EMULSION 100 ML 10.53 MG IV CONT (03:37)
[2020-06-12 04:16] LABS: Hematocrit 38.1 % (42.0-52.0); Hemoglobin 12.3 g/dL (14.0-18.0); Mean Corpuscular HGB Conc 32.3 g/dl (32-36); Mean Corpuscular Hemoglobin 31.8 pg (26-34); Mean Corpuscular Volume 98.4 fl (80-100); Platelet Count Result 194 k/mm3 (150-375); Red Blood Count 3.87 M/mm3 (4.6-6.20); Red Cell Distribution Width 13.7 % (11.5-14.5); White Blood Count 6.1 K/mm3 (4.5-10.0)
[2020-06-12 04:29] LABS: Alanine Aminotransferase 73 U/L (4-50); Albumin Level 2.7 g/dL (3.5-5.1); Alkaline Phosphatase 121 U/L (38-126); Anion Gap 1 mmol/L (8-16); Aspartate Amino Transferase 34 U/L (17-59); Bilirubin,Total 0.7 mg/dL (0.2-1.3); Blood Urea Nitrogen 81 mg/dL (9-20); Calcium 9.8 mg/dL (8.4-10.2); Carbon Dioxide 36 mmol/L (22-30); Chloride 110 mmol/L (98-107); Estimated CRCL calculation 65 ml/min; Estimated Glomerular Filt Rate 51; Glucose 180 mg/dL (75-110); Magnesium 2.1 mg/dL (1.6-2.3); Potassium 3.9 mmol/L (3.4-5.0); Sodium 147 mmol/L (137-145)
[2020-06-12 04:51] LABS: Alveolar/Arterial O2 Gradient 346.1 mmHg; Arterial Blood Gas Ventilator rate 28 /MIN; Carboxyhemoglobin 0.3 % THb (0-2.0); Device VENTILATOR; Fractional Inspired Oxygen 75 %; HCO3 ABG 31.5 mEq/l (22.0-26.0); Methemoglobin ABG 0.2 %THb (0-1.5); Modified Allen's Test Pass; Oxygen Content ABG 17.6 %vol (16.0-22.0); Oxygen Saturation ABG 98.7 % (95.0-100.0); Oxyhemoglobin 97.4 % THb (90.0-100.0); PCO2 ABG 49.5 mmHg (35.0-45.0); PO2 ABG 136.1 mmHg (80.0-100.0); PO2 FiO2 Ratio Arterial Blood 1.81 %; Reduced Hemoglobin 2.1 %THb (0-5.0); Site Drawn LEFT RADIAL; Total Hemoglobin 12.7 g/dL (12.0-18.0); pH ABG 7.422 (7.350-7.450)
[2020-06-12 04:52] LABS: Arterial Blood Gas PEEP 12 cmH2O; Arterial Blood Gas Tidal Volume 450 ml; Arterial Blood Gas Vent Mode CMV
[2020-06-12] MEDS: METOCLOPRAMIDE HCL 10 MG/10 ML SOLN UDC 5 MG PO ×4 (05:32→23:06)
[2020-06-12] MEDS: CENTRAL LINE FLUSH 10 ML IV PUSH ×3 (05:32→21:30)
[2020-06-12] MEDS: FENTANYL 2,500MCG/NS250ML(*CRX 2,500 MCG/250 ML BAG 15 MCG IV CONT ×2 (06:22→23:04)
--- NOTE | 2020-06-12 08:28 | WPDINTPN ---
Progress Note: A&P Assessment and Plan (1) Acute hypoxemic respiratory failure: Code(s): J96.01 - Acute respiratory failure with hypoxia Status: Acute Assessment and Plan: Acute hypoxemic respiratory failure likely related COVID-19 pneumonia -patient presented the hospital on 06/03/2019 and was intubated on 06/05/2019 after failing BiPAP and high-flow therapy -chest x-ray and ABG reviewed. Chest x-ray shows persistent bilateral infiltrate as expected -low tidal volume strategy to prevent barotrauma and volume trauma. -patient was placed in prone position for many days days along with neuromuscular blockers and patient oxygen requirement had improved -06/10 patient was kept in supine position overnight as a trial which did not go well leading to increased PEEP and oxygen requirement - 06/12 patient again proned overnight and currently on 12 of PEEP and 55% FiO2. Continue to wean FiO2 as possible -continue neuromuscular blockers. Will prone patient again today - continue bronchodilators -completed Rocephin and azithromycin for 5 day course (2) COVID-19: Code(s): U07.1 - COVID-19 Status: Acute Assessment and Plan: COVID-19 -results positive 06/03/2020 -patient started on dexamethasone on 06/04/2020 -not a candidate for Remdesivir due to acute on chronic renal failure -received a unit of convalescent plasma 06/05 -continue droplet, airborne and contact isolation/precautions -monitor inflammatory markers and trend (3) Acute on chronic renal insufficiency: Code(s): N28.9 - Disorder of kidney and ureter, unspecified; N18.9 - Chronic kidney disease, unspecified Status: Acute Assessment and Plan: Acute on chronic kidney disease likely related to hypertension, prerenal, COVID-19 -nephrology following the patient -renal ultrasound was unremarkable -patient now has a Aponte catheter, will continue monitor urine output, electrolytes and renal function -creatinine is improving -hyperkalemia resolved with Kayexalate and treatment of respiratory acidosis -continue free water free water flushes for hypochloremia and hyponatremia -off p.o. bicarb now (4) DVT prophylaxis: Code(s): Z29.9 - Encounter for prophylactic measures, unspecified Status: Acute Assessment and Plan: Lovenox 40 mg SQ q.12 hours (5) Dietary counseling and surveillance: Code(s): Z71.3 - Dietary counseling and surveillance Status: Acute Assessment and Plan: Reglan was added as today and patient is now tolerating tube feeds P.r.n. MiraLax and Dulcolax added for constipation Stress ulcer prophylaxis: Protonix (6) Hypotension: Code(s): I95.9 - Hypotension, unspecified Status: Acute Assessment and Plan: Likely secondary to sedation and positive pressure ventilation. Patient has required off and on low-dose Levophed support for blood pressure currently off Additional Plan Code status: Full code and son by phone today and updated them with patient's current status including his respiratory failure, mechanical ventilation details, renal function and overall guarded prognosis Critical care time spent: 30 minutes Due to a high probability of clinically significant, life threatening deterioration, the patient required my highest level of preparedness to intervene emergently and I personally spent this critical care time directly and personally managing the patient. This critical care time included obtaining a history; examining the patient; pulse oximetry; ordering and review of studies; arranging urgent treatment with development of a management plan; evaluation of patient's response to treatment; frequent reassessment; and discussions with other providers. It was exclusive of separately billable procedures and treating other patients and teaching time. Please see Assessment and Plan section and the rest of the note for further information on patient assessment and treatment [place]
[2020-06-12] MEDS: ENOXAPARIN 40 MG/0.4 ML SYRINGE SUB-Q ×2 (08:38→20:16)
[2020-06-12] MEDS: PANTOPRAZOLE SODIUM IV 40 MG VIAL IV PUSH (08:38)
[2020-06-12] MEDS: DEXAMETHASONE SOD PHOS INJ 4 MG/ML VIAL 6 MG IV PUSH (08:38)
[2020-06-12] MEDS: CISATRACURIUM BESYLATE 200 MG in DEXTROSE 5% 80 ML 7.16 ML IV CONT (10:30)
--- NOTE | 2020-06-12 12:53 | P.PNNP_ITS ---
Progress Note: A&P Assessment and Plan (1) SUPA (acute kidney injury): Code(s): N17.9 - Acute kidney failure, unspecified Status: Acute Assessment and Plan: * resolved/resolving * presumably due to acute illness and COVID-19 * evaluation to date demonstrates pre-renal urine electrolytes and normal renal ultrasound * no critical electrolytes and making urine with improvement in creatinine noted * follow trend of repeat labs and urine output (2) Stage 3a chronic kidney disease: Code(s): N18.31 - Chronic kidney disease, stage 3a Status: Chronic Assessment and Plan: * baseline creatinine runs around 1.5mg/dl * this is likely secondary to hypertension (3) Acute hypoxemic respiratory failure: Code(s): J96.01 - Acute respiratory failure with hypoxia Status: Acute Assessment and Plan: * chest x-ray shows findings consistent with COVID-19 * currently intubated and on mechanical ventilation * finish course of antibiotics * continue current strategy/therapy (4) COVID-19: Code(s): U07.1 - COVID-19 Status: Acute Assessment and Plan: * on dexamethasone since 06/04/20 * not a candidate for Remdesivir due to acute on chronic renal failure * s/p convalescent plasma 06/05/20 * continue droplet/airborne/contact isolation + precautions * monitor inflammatory markers (5) Hypernatremia: Code(s): E87.0 - Hyperosmolality and hypernatremia Status: Acute Assessment and Plan: * due to free water deficit * titrate free water flushes for correction (6) Hypotension: Code(s): I95.9 - Hypotension, unspecified Status: Acute Assessment and Plan: * on low dose levophed PRN * due to sedation and need for positive pressure ventilation (7) Anemia: Code(s): D64.9 - Anemia, unspecified Status: Acute Assessment and Plan: * mild at this time * probably related to acute illness, SUPA, and CKD * follow trend of H/H Will continue to follow. Subjective Date/time seen: 06/12/20 12:53 No major changes in the last 24 hours; remains on ventilator support and seems to be tolerating prone positioning when done; remains hemodynamically stable; no new events/issues overnight or earlier this AM; remains intubated/sedated/paralyzed. Exam Narrative: Exam Narrative: General: WD/WN male intubated/sedated/paralyzed and on ventilator Heart: normal S1 and S2 but tachycardic; no rub Lungs: coarse breath sounds throughout Abdomen: soft, nontender, nondistended, positive bowel sounds Extremities: no cyanosis or clubbing; no edema Skin: warm and dry Objective Data Vital Signs Vital Signs: Vital Signs Temp Pulse Resp BP Pulse Ox 06/12/20 12:00 118 H 06/12/20 11:54 117 H 28 H 94 06/12/20 11:52 38.1 C H 118 H 28 H 131/86 95 06/12/20 10:22 124 H 90 06/12/20 10:00 37.7 C H 119 H 28 H 123/79 90 06/12/20 08:55 122 H 28 H 06/12/20 08:40 121 H 90 06/12/20 08:38 121 H 28 H 06/12/20 08:37 119 H 28 H 06/12/20 08:00 36.2 C L 114 H 28 H 112/68 90 06/12/20 07:58 115 H 28 H 92 06/12/20 06:24 103 H 28 H 96/68 L 06/12/20 06:22 105 H 28 H 06/12/20 06:00 99 28 H 96/68 L 100 06/12/20 05:55 84 98 06/12/20 04:31 90 28 H 102/76 06/12/20 04:
--- NOTE | 2020-06-12 12:53 | PM.PNNEP ---
Progress Note: A&P Assessment and Plan (1) SUPA (acute kidney injury): Code(s): N17.9 - Acute kidney failure, unspecified Status: Acute Assessment and Plan: resolved/resolving presumably due to acute illness and COVID-19 evaluation to date demonstrates pre-renal urine electrolytes and normal renal ultrasound no critical electrolytes and making urine with improvement in creatinine noted follow trend of repeat labs and urine output (2) Stage 3a chronic kidney disease: Code(s): N18.31 - Chronic kidney disease, stage 3a Status: Chronic Assessment and Plan: baseline creatinine runs around 1.5mg/dl this is likely secondary to hypertension (3) Acute hypoxemic respiratory failure: Code(s): J96.01 - Acute respiratory failure with hypoxia Status: Acute Assessment and Plan: chest x-ray shows findings consistent with COVID-19 currently intubated and on mechanical ventilation finish course of antibiotics continue current strategy/therapy (4) COVID-19: Code(s): U07.1 - COVID-19 Status: Acute Assessment and Plan: on dexamethasone since 06/04/20 not a candidate for Remdesivir due to acute on chronic renal failure s/p convalescent plasma 06/05/20 continue droplet/airborne/contact isolation + precautions monitor inflammatory markers (5) Hypernatremia: Code(s): E87.0 - Hyperosmolality and hypernatremia Status: Acute Assessment and Plan: due to free water deficit titrate free water flushes for correction (6) Hypotension: Code(s): I95.9 - Hypotension, unspecified Status: Acute Assessment and Plan: on low dose levophed PRN due to sedation and need for positive pressure ventilation (7) Anemia: Code(s): D64.9 - Anemia, unspecified Status: Acute Assessment and Plan: mild at this time probably related to acute illness, SUPA, and CKD follow trend of H/H Will continue to follow. Subjective Date/time seen: 06/12/20 12:53 No major changes in the last 24 hours; remains on ventilator support and seems to be tolerating prone positioning when done; remains hemodynamically stable; no new events/issues overnight or earlier this AM; remains intubated/sedated/paralyzed. Exam Narrative: Exam Narrative: General: WD/WN male intubated/sedated/paralyzed and on ventilator Heart: normal S1 and S2 but tachycardic; no rub Lungs: coarse breath sounds throughout Abdomen: soft, nontender, nondistended, positive bowel sounds Extremities: no cyanosis or clubbing; no edema Skin: warm and dry Objective Data Vital Signs Vital Signs: Vital Signs Temp Pulse Resp BP Pulse Ox 06/12/20 12:00 118 H 06/12/20 11:54 117 H 28 H 94 06/12/20 11:52 38.1 C H 118 H 28 H 131/86 95 06/12/20 10:22 124 H 90 06/12/20 10:00 37.7 C H 119 H 28 H 123/79 90 06/12/20 08:55 122 H 28 H 06/12/20 08:40 121 H 90 06/12/20 08:38 121 H 28 H 06/12/20 08:37 119 H 28 H 06/12/20 08:00 36.2 C L 114 H 28 H 112/68 90 06/12/20 07:58 115 H 28 H 92 06/12/20 06:24 103 H 28 H 96/68 L 06/12/20 06:22 105 H 28 H 06/12/20 06:00 99 28 H 96/68 L 100 06/12/20 05:55 84 98 06/12/20 04:31 90 28 H 102/76 06/12/20 04:29 90 28 H 06/12/20 04:28 92 28 H 06/12/20 04:00 35.9 C L 93 28 H 102/72 97 06/12/20 03:37 84 28 H 06/12/20 02:20 82 96 06/12/20 02:00 83 28 H 104/75 96 06/12/20 00:00 87 06/11/20 23:58 36.8 C 89 28 H 121/90 97 06/11/20 23:52 90 28 H 121/90 06/11/20 23:51 96 28 H 06/11/20 23:20 88 97 06/11/20 22:29 91 28 H 115/86 06/11/20 22:00 91 28 H 115/86 97 06/11/20 20:38 96 28 H 06/11/20 20:35 99 28 H 93/71 L 06/11/20 20:34 96 28 H 06/11/20 20:26 99 28 H 06/11/20 20:10 96 97 06/11/20 20:04 37.5 C 06/11/20 20:00 108 H
--- NOTE | 2020-06-12 13:07 | PM.IMPN ---
Progress Note: A&P Assessment and Plan (1) COVID-19: Code(s): U07.1 - COVID-19 Status: Acute Assessment and Plan: Not started on Remdesivir due to renal failure Dexamethasone day 9. Received convalescent plasma 06/05 Breathing treatments. had 5 days of ceftriaxone and azithromycin (2) Acute hypoxemic respiratory failure: Code(s): J96.01 - Acute respiratory failure with hypoxia Status: Acute Assessment and Plan: Now on ventilator, 06/05, tapering 02 sat as can (3) Acute on chronic renal insufficiency: Code(s): N28.9 - Disorder of kidney and ureter, unspecified; N18.9 - Chronic kidney disease, unspecified Status: Acute Assessment and Plan: Bun/Cr trending down, with creatinine at 1.4 and had peaked at 4.9 Likely to be pre renal Continue to monitor I/O's strict (4) Gastro-esophageal reflux disease without esophagitis: Code(s): K21.9 - Gastro-esophageal reflux disease without esophagitis Status: Acute Assessment and Plan: PPI Stable. (5) YUDY (obstructive sleep apnea): Code(s): G47.33 - Obstructive sleep apnea (adult) (pediatric) Status: Chronic Assessment and Plan: Now on ventilator support. (6) DVT prophylaxis: Code(s): Z29.9 - Encounter for prophylactic measures, unspecified Status: Acute Assessment and Plan: Lovenox Q 12 with the COVID Subjective Date/time seen: 06/12/20 13:07 Interval history: Date of visit 06/12. 60-year-old male with acute respiratory failure and renal failure with COVID pneumonia. 06/05 intubated and continues on mechanical ventilation and sedation and slowly decreasing 02 requirements until am 06/11 when had to be increased again. Less 02 when keep proned Exam Narrative: Exam Narrative: Blood pressure 130/86 pulse is 110 afebrile saturating 94% with FiO2 of 55% and PEEP of 12 In the prone position at present time Lungs distant breath sounds no areas of consolidation CV regular rate rhythm Extremities without edema distal pulses 1+ at best Neuro sedated Objective Data Vital Signs Vital Signs: Vital Signs - 24 hr 06/11/20 13:48 06/11/20 13:56 06/11/20 13:57 Temperature Pulse Rate 96 95 95 Respiratory Rate 28 H 28 H Blood Pressure 113/79 Pulse Oximetry 97 95 06/11/20 14:11 06/11/20 14:21 06/11/20 15:35 Temperature Pulse Rate 95 104 H 112 H Respiratory Rate 28 H 28 H 28 H Blood Pressure 115/79 Pulse Oximetry 97 06/11/20 15:39 06/11/20 16:00 06/11/20 17:08 Temperature 37.6 C Pulse Rate 116 H 114 H 111 H Respiratory Rate 28 H Blood Pressure 151/99 H Pulse Oximetry 97 97 06/11/20 18:00 06/11/20 18:50 06/11/20 18:53 Temperature 38.0 C H Pulse Rate 117 H 127 H Respiratory Rate 28 H 28 H Blood Pressure 153/114 H Pulse Oximetry 96 06/11/20 19:02 06/11/20 19:03 06/11/20 19:04 Temperature 38.0 C H Pulse Rate 129 H 129 H Respiratory Rate 28 H 28 H Blood Pressure Pulse Oximetry 06/11/20 19:47 06/11/20 20:00 06/11/20 20:04 Temperature 37.5 C 37.5 C Pulse Rate 118 H 108 H Respiratory Rate 28 H Blood Pressure 110/76 Pulse Oximetry 97 06/11/20 20:10 06/11/20 20:26 06/11/20 20:34 Temperature Pulse Rate 96 99 96 Respiratory Rate 28 H 28 H Blood Pressure Pulse Oximetry 97 06/11/20 20:35 06/11/20 20:38 06/11/20 22:00 Temperature Pulse Rate 99 96 91 Respiratory Rate 28 H 28 H 28 H Blood Pressure 93/71 L 115/86 Pulse Oximetry 97 06/11/20 22:29 06/11/20 23:20 06/11/20 23:51 Temperature Pulse Rate 91 88 96 Respiratory Rate 28 H 28 H Blood Pressure 115/86 Pulse Oximetry 97 06/11/20 23:52 06/11/20 23:58 06/12/20 00:00 Temperature 36.8 C Pulse Rate 90 89 87 Respiratory Rate 28 H 28 H Blood Pressure 121/90 121/90 Pulse Oximetry 97 06/12/20 02:00 06/12/20 02:20 06/12/20 03:37 Temperature Pulse Rate 83 82 84 Respiratory Rate 28 H 28
[2020-06-12] MEDS: ACETAMINOPHEN 325 MG TABLET 650 MG PO (17:35)
[2020-06-12] MEDS: PROPOFOL IV EMULSION 100 ML 17.55 MG IV CONT (20:13)
[2020-06-12] MEDS: SODIUM CHLORIDE 0.9% IV 500 ML 999 ML IV CONT (20:14)
[2020-06-12] MEDS: polyethylene glycoL 3350 17 GM POWD.PACK PO (20:30)
[2020-06-12 23:25] LABS: Glucose Point of Care 126 (65-105)
[2020-06-13] VITALS (45 sets, daily range): BP systolic 81–130; BP diastolic 51–95; PULSE 50–155; RESP 20–32; TEMP 36.2–37.7; O2SAT 90–100
[2020-06-13] MEDS: ALBUTEROL SULFATE NEB 2.5 MG/0.5 ML INH INHALATION ×4 (03:06→20:29)
[2020-06-13] MEDS: PROPOFOL IV EMULSION 100 ML 10.53 MG IV CONT (04:16)
[2020-06-13 05:12] LABS: Hematocrit 38.9 % (42.0-52.0); Hemoglobin 12.2 g/dL (14.0-18.0); Mean Corpuscular HGB Conc 31.4 g/dl (32-36); Mean Corpuscular Hemoglobin 30.8 pg (26-34); Mean Corpuscular Volume 98.2 fl (80-100); Mean Platelet Volume 11.4 fl (7.4-10.4); Platelet Count Result 245 k/mm3 (150-375); Red Blood Count 3.96 M/mm3 (4.6-6.20); Red Cell Distribution Width 13.8 % (11.5-14.5); White Blood Count 9.9 K/mm3 (4.5-10.0)
[2020-06-13 05:38] LABS: Alanine Aminotransferase 57 U/L (4-50); Albumin Level 2.8 g/dL (3.5-5.1); Alkaline Phosphatase 114 U/L (38-126); Anion Gap 1 mmol/L (8-16); Aspartate Amino Transferase 38 U/L (17-59); Bilirubin,Total 0.9 mg/dL (0.2-1.3); Blood Urea Nitrogen 111 mg/dL (9-20); Calcium 9.9 mg/dL (8.4-10.2); Carbon Dioxide 38 mmol/L (22-30); Chloride 108 mmol/L (98-107); Estimated CRCL calculation 41 ml/min; Estimated Glomerular Filt Rate 30; Glucose 116 mg/dL (75-110); Magnesium 2.4 mg/dL (1.6-2.3); Potassium 4.2 mmol/L (3.4-5.0); Sodium 147 mmol/L (137-145)
[2020-06-13 05:45] LABS: Base Excess ABG 4.2 mEq/l (+/-2.0); Carboxyhemoglobin 0.1 % THb (0-2.0); Fractional Inspired Oxygen 50 %; Methemoglobin ABG 0.2 %THb (0-1.5); Oxygen Content ABG 16.6 %vol (16.0-22.0); Oxygen Saturation ABG 89.6 % (95.0-100.0); Oxyhemoglobin 88.2 % THb (90.0-100.0); PCO2 ABG 49.7 mmHg (35.0-45.0); PO2 ABG 57.6 mmHg (80.0-100.0); PO2 FiO2 Ratio Arterial Blood 1.15 %; Reduced Hemoglobin 11.5 %THb (0-5.0); Total Hemoglobin 13.4 g/dL (12.0-18.0); pH ABG 7.399 (7.350-7.450)
[2020-06-13 05:46] LABS: Arterial Blood Gas PEEP 12 cmH2O; Arterial Blood Gas Vent Mode CMV; Arterial Blood Gas Ventilator rate 28 /MIN; Device VENTILATOR; Modified Allen's Test Pass; Site Drawn RIGHT RADIAL
[2020-06-13 05:47] LABS: Arterial Blood Gas Tidal Volume 450 ml
[2020-06-13] MEDS: METOCLOPRAMIDE HCL 10 MG/10 ML SOLN UDC 5 MG PO ×4 (06:17→23:20)
[2020-06-13] MEDS: CENTRAL LINE FLUSH 10 ML IV PUSH ×3 (06:17→20:02)
[2020-06-13] MEDS: BISACODYL 10 MG SUPPOSITORY RECTAL (06:40)
[2020-06-13] MEDS: PANTOPRAZOLE SODIUM IV 40 MG VIAL IV PUSH (08:28)
[2020-06-13] MEDS: DEXAMETHASONE SOD PHOS INJ 4 MG/ML VIAL 6 MG IV PUSH (08:28)
[2020-06-13] MEDS: ENOXAPARIN 40 MG/0.4 ML SYRINGE SUB-Q ×2 (08:29→20:01)
[2020-06-13] MEDS: PROPOFOL IV EMULSION 100 ML 14.04 MG IV CONT ×2 (09:32→17:28)
--- NOTE | 2020-06-13 11:14 | PCDIET ---
ICU Rounding Note: Tube feedings held overnight due to emesis. MD order to restart tube feedings today. Last recorded weight is 114.1kg which is down from last review. +I/O noted. Bowel Motility: Last documented BM on 06/10/20 x 3. Labs Reviewed: Hgb (12.2), Hct (38.9), Glu (116), BUN (111), Cr (2.2), Na (147), Alb (2.8) Meds Noted: Albuterol, Dulcolax, Nimbex, Fentanyl, Reglan, Versed, Levophed, Protonix, Miralax, Propofol (rate of 14.04mL/hr provides 370kcal per day) Additional Notes: No open sores documented. Following daily in ICU rounds. Assessing/reassessing every Saturday/Saturday.
--- NOTE | 2020-06-13 14:01 | WPDINTPN ---
Progress Note: A&P Assessment and Plan (1) Acute hypoxemic respiratory failure: Code(s): J96.01 - Acute respiratory failure with hypoxia Status: Acute Assessment and Plan: Acute hypoxemic respiratory failure likely related COVID-19 pneumonia -patient presented the hospital on 06/03/2019 and was intubated on 06/05/2019 after failing BiPAP and high-flow therapy -chest x-ray and ABG reviewed. Chest x-ray shows persistent bilateral infiltrate as expected -low tidal volume strategy to prevent barotrauma and volume trauma. -patient was placed in prone position for many days days along with neuromuscular blockers and patient oxygen requirement had improved -06/10 patient was kept in supine position overnight as a trial which did not go well leading to increased PEEP and oxygen requirement - 06/12 patient again proned overnight and currently on 12 of PEEP and 55% FiO2. Continue to wean FiO2 as possible -off Nimbex. - continue bronchodilators -completed Rocephin and azithromycin for 5 day course (2) COVID-19: Code(s): U07.1 - COVID-19 Status: Acute Assessment and Plan: COVID-19 -results positive 06/03/2020 -patient started on dexamethasone on 06/04/2020 -not a candidate for Remdesivir due to acute on chronic renal failure -received a unit of convalescent plasma 06/05 -continue droplet, airborne and contact isolation/precautions -monitor inflammatory markers and trend (3) Acute on chronic renal insufficiency: Code(s): N28.9 - Disorder of kidney and ureter, unspecified; N18.9 - Chronic kidney disease, unspecified Status: Acute Assessment and Plan: Acute on chronic kidney disease likely related to hypertension, prerenal, COVID-19 -nephrology following the patient -renal ultrasound was unremarkable -creatinine increased this morning despite patient having adequate -hyperkalemia has resolved -continue free water free water flushes for hyperchloremia and hypernatremia -off p.o. bicarb now (4) DVT prophylaxis: Code(s): Z29.9 - Encounter for prophylactic measures, unspecified Status: Acute Assessment and Plan: Lovenox 40 mg SQ q.12 hours (5) Dietary counseling and surveillance: Code(s): Z71.3 - Dietary counseling and surveillance Status: Acute Assessment and Plan: Patient was restarted on tube feeds P.r.n. MiraLax and Dulcolax added for constipation Stress ulcer prophylaxis: Protonix (6) Hypotension: Code(s): I95.9 - Hypotension, unspecified Status: Acute Assessment and Plan: Likely secondary to sedation and positive pressure ventilation. Patient has required off and on low-dose Levophed support for blood pressure currently off Additional Plan Code status: Full code and son by phone today and updated them with patient's current status including his respiratory failure, mechanical ventilation details, renal function and overall guarded prognosis Critical care time spent: 33 minutes Due to a high probability of clinically significant, life threatening deterioration, the patient required my highest level of preparedness to intervene emergently and I personally spent this critical care time directly and personally managing the patient. This critical care time included obtaining a history; examining the patient; pulse oximetry; ordering and review of studies; arranging urgent treatment with development of a management plan; evaluation of patient's response to treatment; frequent reassessment; and discussions with other providers. It was exclusive of separately billable procedures and treating other patients and teaching time. Please see Assessment and Plan section and the rest of the note for further information on patient assessment and treatment Subjective Date/time seen: 06/13/20 14:01 Interval history: Date of visit 06/07. 60-year-old male with acute respiratory failure and renal failure with COVID pneumonia. 06/05 intubated and
[2020-06-13] MEDS: AMIODARONE 150 MG/D5W 100 ML 150 MG/100 ML BAG 600 MG IV CONT (15:01)
[2020-06-13] MEDS: AMIODARONE 360 MG/D5W 200 ML 360 MG/200 ML BAG 33.33 MG IV CONT (15:03)
--- NOTE | 2020-06-13 15:24 | P.PNNP_ITS ---
Progress Note: A&P Assessment and Plan (1) SUPA (acute kidney injury): Code(s): N17.9 - Acute kidney failure, unspecified Status: Acute Assessment and Plan: * Acute kidney injury * Creatinine has gone back up a little bit. * He has not received any diuretics. * Renal ultrasound is okay * Urine electrolytes are pre renal. * presumably due to acute illness and COVID-19 and possibly some some 3rd spacing. * Continue supportive care. * Since creatinine is up, will hold off on diuretics until tomorrow (2) Stage 3a chronic kidney disease: Code(s): N18.31 - Chronic kidney disease, stage 3a Status: Chronic Assessment and Plan: * baseline creatinine runs around 1.5mg/dl * this is likely secondary to hypertension (3) Acute hypoxemic respiratory failure: Code(s): J96.01 - Acute respiratory failure with hypoxia Status: Acute Assessment and Plan: * chest x-ray shows findings consistent with COVID-19 * currently intubated and on mechanical ventilation * finish course of antibiotics * Received dexamethasone * Received a course of convalescent plasma * continue current strategy/therapy (4) COVID-19: Code(s): U07.1 - COVID-19 Status: Acute Assessment and Plan: * on dexamethasone since 06/04/20 * not a candidate for Remdesivir due to acute on chronic renal failure * s/p convalescent plasma 06/05/20 * continue droplet/airborne/contact isolation + precautions * monitor inflammatory markers (5) Hypernatremia: Code(s): E87.0 - Hyperosmolality and hypernatremia Status: Acute Assessment and Plan: * due to free water deficit * titrate free water flushes for correction (6) Hypotension: Code(s): I95.9 - Hypotension, unspecified Status: Acute Assessment and Plan: * on low dose levophed PRN * due to sedation and need for positive pressure ventilation (7) Anemia: Code(s): D64.9 - Anemia, unspecified Status: Acute Assessment and Plan: * mild at this time * probably related to acute illness, SUPA, and CKD * No need for Epogen * follow trend of H/H Will continue to follow. Subjective Date/time seen: 06/13/20 15:24 Interval history: Patient is sedated and intubated. On the ventilator. Review of Systems Review of Systems: ROS unobtainable: Yes unobtainable due to medical condition Exam Narrative: Exam Narrative: General: WD/WN male intubated/sedated/paralyzed and on ventilator Heart: normal S1 and S2 but tachycardic; no rub Lungs: coarse breath sounds bilaterally Abdomen: soft, nontender, nondistended, positive bowel sounds Extremities: no cyanosis or clubbing; no edema Skin: No rash Objective Data Vital Signs Vital Signs: Vital Signs - 24 hr 06/12/20 16:00 06/12/20 16:47 06/12/20 16:56 Temperature 38.0 C H Pulse Rate 112 H 107 H 105 H Respiratory Rate 29 H Blood Pressure 110/78 Pulse Oximetry 96 95 96 06/12/20 17:35 06/12/20 17:52 06/12/20 19:00 Temperature 38.1 C H 37.6 C H Pulse Rate 105 H Respiratory Rate 29 H Blood Pressure 99/66 L Pulse Oximetry 98 06/12/20 19:30 06/12/20 20:00 06/12/20 20:15 Temperature 37.6 C H Pulse Rate 89 99 Respiratory Rate 28 H
--- NOTE | 2020-06-13 15:24 | PM.PNNEP ---
Progress Note: A&P Assessment and Plan (1) SUPA (acute kidney injury): Code(s): N17.9 - Acute kidney failure, unspecified Status: Acute Assessment and Plan: Acute kidney injury Creatinine has gone back up a little bit. He has not received any diuretics. Renal ultrasound is okay Urine electrolytes are pre renal. presumably due to acute illness and COVID-19 and possibly some some 3rd spacing. Continue supportive care. Since creatinine is up, will hold off on diuretics until tomorrow (2) Stage 3a chronic kidney disease: Code(s): N18.31 - Chronic kidney disease, stage 3a Status: Chronic Assessment and Plan: baseline creatinine runs around 1.5mg/dl this is likely secondary to hypertension (3) Acute hypoxemic respiratory failure: Code(s): J96.01 - Acute respiratory failure with hypoxia Status: Acute Assessment and Plan: chest x-ray shows findings consistent with COVID-19 currently intubated and on mechanical ventilation finish course of antibiotics Received dexamethasone Received a course of convalescent plasma continue current strategy/therapy (4) COVID-19: Code(s): U07.1 - COVID-19 Status: Acute Assessment and Plan: on dexamethasone since 06/04/20 not a candidate for Remdesivir due to acute on chronic renal failure s/p convalescent plasma 06/05/20 continue droplet/airborne/contact isolation + precautions monitor inflammatory markers (5) Hypernatremia: Code(s): E87.0 - Hyperosmolality and hypernatremia Status: Acute Assessment and Plan: due to free water deficit titrate free water flushes for correction (6) Hypotension: Code(s): I95.9 - Hypotension, unspecified Status: Acute Assessment and Plan: on low dose levophed PRN due to sedation and need for positive pressure ventilation (7) Anemia: Code(s): D64.9 - Anemia, unspecified Status: Acute Assessment and Plan: mild at this time probably related to acute illness, SUPA, and CKD No need for Epogen follow trend of H/H Will continue to follow. Subjective Date/time seen: 06/13/20 15:24 Interval history: Patient is sedated and intubated. On the ventilator. Review of Systems Review of Systems: ROS unobtainable: Yes unobtainable due to medical condition Exam Narrative: Exam Narrative: General: WD/WN male intubated/sedated/paralyzed and on ventilator Heart: normal S1 and S2 but tachycardic; no rub Lungs: coarse breath sounds bilaterally Abdomen: soft, nontender, nondistended, positive bowel sounds Extremities: no cyanosis or clubbing; no edema Skin: No rash Objective Data Vital Signs Vital Signs: Vital Signs - 24 hr 06/12/20 16:00 06/12/20 16:47 06/12/20 16:56 Temperature 38.0 C H Pulse Rate 112 H 107 H 105 H Respiratory Rate 29 H Blood Pressure 110/78 Pulse Oximetry 96 95 96 06/12/20 17:35 06/12/20 17:52 06/12/20 19:00 Temperature 38.1 C H 37.6 C H Pulse Rate 105 H Respiratory Rate 29 H Blood Pressure 99/66 L Pulse Oximetry 98 06/12/20 19:30 06/12/20 20:00 06/12/20 20:15 Temperature 37.6 C H Pulse Rate 89 99 Respiratory Rate 28 H Blood Pressure 77/55 L 98/69 L Pulse Oximetry 97 97 06/12/20 20:58 06/12/20 21:05 06/12/20 22:00 Temperature Pulse Rate 99 101 H 106 H Respiratory Rate 28 H 28 H 28 H Blood Pressure 81/64 L Pulse Oximetry 94 06/12/20 23:03 06/12/20 23:04 06/12/20 23:34 Temperature Pulse Rate 103 H 103 H 93 Respiratory Rate 28 H 28 H Blood Pressure Pulse Oximetry 92 06/13/20 00:00 06/13/20 00:04 06/13/20 02:00 Temperature 37.4 C Pulse Rate 100 90 Respiratory Rate 28 H 28 H Blood Pressure 82/61 L 82/61 L 93/69 L Pulse Oximetry 94 94 06/13/20 02:20 06/13/20 03:18 06/13/20 03:26 Temperature Pulse Rate 84 83 85 Respiratory Rate 28 H 29 H Blood Pressure Pulse Oximetry 97
[2020-06-13] MEDS: FENTANYL 2,500MCG/NS250ML(*CRX 2,500 MCG/250 ML BAG 15 MCG IV CONT (16:11)
--- NOTE | 2020-06-13 17:56 | PM.IMPN ---
Progress Note: A&P Assessment and Plan (1) COVID-19: Code(s): U07.1 - COVID-19 Status: Acute Assessment and Plan: Not started on Remdesivir due to renal failure Dexamethasone day 10. Received convalescent plasma 06/05 Breathing treatments. had 5 days of ceftriaxone and azithromycin (2) Acute hypoxemic respiratory failure: Code(s): J96.01 - Acute respiratory failure with hypoxia Status: Acute Assessment and Plan: Now on ventilator, 06/05, tapering 02 as can (3) Acute on chronic renal insufficiency: Code(s): N28.9 - Disorder of kidney and ureter, unspecified; N18.9 - Chronic kidney disease, unspecified Status: Acute Assessment and Plan: Bun/Cr trended down to 1.4 had peaked at 4.9, now back to 2.2 Likely to be pre renal Continue to monitor I/O's strict (4) Gastro-esophageal reflux disease without esophagitis: Code(s): K21.9 - Gastro-esophageal reflux disease without esophagitis Status: Acute Assessment and Plan: PPI Stable. (5) YUDY (obstructive sleep apnea): Code(s): G47.33 - Obstructive sleep apnea (adult) (pediatric) Status: Chronic Assessment and Plan: Now on ventilator support. (6) DVT prophylaxis: Code(s): Z29.9 - Encounter for prophylactic measures, unspecified Status: Acute Assessment and Plan: Lovenox Q 12 with the COVID Subjective Date/time seen: 06/13/20 17:56 Interval history: Date of visit 06/13. 60-year-old male with acute respiratory failure and renal failure with COVID pneumonia. 06/05 intubated and continues on mechanical ventilation and sedation and slowly decreasing 02 requirements until am 06/11 when had to be increased again. Less 02 when keep proned but question of aspiration last pm so now supine Exam Narrative: Exam Narrative: Blood pressure 96/66 pulse is 90 afebrile saturating 90% with FiO2 of 60% and PEEP of 12 In suppine position at present time Lungs distant breath sounds no areas of consolidation CV regular rate rhythm Extremities without edema distal pulses 1+ at best Neuro sedated Objective Data Vital Signs Vital Signs: Vital Signs - 24 hr 06/12/20 19:00 06/12/20 19:30 06/12/20 20:00 Temperature 37.6 C H 37.6 C H Pulse Rate 89 Respiratory Rate 28 H Blood Pressure 77/55 L 98/69 L Pulse Oximetry 97 06/12/20 20:15 06/12/20 20:58 06/12/20 21:05 Temperature Pulse Rate 99 99 101 H Respiratory Rate 28 H 28 H Blood Pressure Pulse Oximetry 97 06/12/20 22:00 06/12/20 23:03 06/12/20 23:04 Temperature Pulse Rate 106 H 103 H 103 H Respiratory Rate 28 H 28 H 28 H Blood Pressure 81/64 L Pulse Oximetry 94 06/12/20 23:34 06/13/20 00:00 06/13/20 00:04 Temperature 37.4 C Pulse Rate 93 100 Respiratory Rate 28 H Blood Pressure 82/61 L 82/61 L Pulse Oximetry 92 94 06/13/20 02:00 06/13/20 02:20 06/13/20 03:18 Temperature Pulse Rate 90 84 83 Respiratory Rate 28 H 28 H Blood Pressure 93/69 L Pulse Oximetry 94 97 06/13/20 03:26 06/13/20 04:00 06/13/20 05:00 Temperature 37.7 C H Pulse Rate 85 96 Respiratory Rate 29 H 28 H 30 H Blood Pressure 103/67 Pulse Oximetry 93 06/13/20 05:52 06/13/20 06:00 06/13/20 06:18 Temperature Pulse Rate 107 H 93 91 Respiratory Rate 28 H 32 H Blood Pressure 101/69 104/74 Pulse Oximetry 90 93 06/13/20 08:00 06/13/20 08:30 06/13/20 08:40 Temperature 37.3 C Pulse Rate 88 89 89 Respiratory Rate 28 H 28 H 28 H Blood Pressure 118/81 Pulse Oximetry 94 95 06/13/20 09:32 06/13/20 10:00 06/13/20 10:03 Temperature Pulse Rate 88 90 90 Respiratory Rate 28 H 28 H 28 H Blood Pressure 96/66 L Pulse Oximetry 96 06/13/20 10:23 06/13/20 11:40 06/13/20 12:00 Temperature 36.2 C L Pulse Rate 90 83 82 Respiratory Rate 28 H 29 H Blood Pressure 97/73 L Pulse Oximetry 96 100 06/13/20 14:00 06/13/20 14:40 06/13/20 15:01 Temperat
[2020-06-13] MEDS: AMIODARONE 360 MG/D5W 200 ML 360 MG/200 ML BAG 16.67 MG IV CONT (23:20)
[2020-06-14] VITALS (30 sets, daily range): BP systolic 93–145; BP diastolic 58–83; PULSE 74–108; RESP 19–32; TEMP 36.3–37.2; O2SAT 91–98
[2020-06-14] MEDS: ALBUTEROL SULFATE NEB 2.5 MG/0.5 ML INH INHALATION ×4 (02:37→20:24)
[2020-06-14] MEDS: CENTRAL LINE FLUSH 10 ML IV PUSH ×3 (05:07→21:06)
[2020-06-14] MEDS: METOCLOPRAMIDE HCL 10 MG/10 ML SOLN UDC 5 MG PO ×3 (05:07→17:27)
[2020-06-14 05:22] LABS: Hematocrit 37.4 % (42.0-52.0); Hemoglobin 11.8 g/dL (14.0-18.0); Mean Corpuscular HGB Conc 31.6 g/dl (32-36); Mean Corpuscular Hemoglobin 30.6 pg (26-34); Mean Corpuscular Volume 96.9 fl (80-100); Mean Platelet Volume 11.9 fl (7.4-10.4); Platelet Count Result 203 k/mm3 (150-375); Red Blood Count 3.86 M/mm3 (4.6-6.20); Red Cell Distribution Width 13.7 % (11.5-14.5); White Blood Count 10.2 K/mm3 (4.5-10.0)
[2020-06-14 05:35] LABS: Alanine Aminotransferase 44 U/L (4-50); Albumin Level 2.7 g/dL (3.5-5.1); Alkaline Phosphatase 108 U/L (38-126); Anion Gap 1 mmol/L (8-16); Aspartate Amino Transferase 38 U/L (17-59); Bilirubin,Total 0.5 mg/dL (0.2-1.3); Blood Urea Nitrogen 108 mg/dL (9-20); Calcium 10.2 mg/dL (8.4-10.2); Carbon Dioxide 36 mmol/L (22-30); Chloride 109 mmol/L (98-107); Estimated CRCL calculation 48 ml/min; Estimated Glomerular Filt Rate 36; Glucose 190 mg/dL (75-110); Magnesium 2.6 mg/dL (1.6-2.3); Phosphorus 5.4 mg/dL (2.5-4.5); Potassium 4.3 mmol/L (3.4-5.0); Sodium 146 mmol/L (137-145)
[2020-06-14 05:49] LABS: Alveolar/Arterial O2 Gradient 237.1 mmHg; Base Excess ABG 4.1 mEq/l (+/-2.0); Carboxyhemoglobin 0.3 % THb (0-2.0); Fractional Inspired Oxygen 50 %; HCO3 ABG 29.9 mEq/l (22.0-26.0); Methemoglobin ABG 0.2 %THb (0-1.5); Oxyhemoglobin 89.7 % THb (90.0-100.0); PCO2 ABG 49.6 mmHg (35.0-45.0); PO2 ABG 63.6 mmHg (80.0-100.0); PO2 FiO2 Ratio Arterial Blood 1.27 %; Reduced Hemoglobin 9.8 %THb (0-5.0); Total Hemoglobin 12.7 g/dL (12.0-18.0); pH ABG 7.398 (7.350-7.450)
[2020-06-14 05:50] LABS: Arterial Blood Gas PEEP 12 cmH2O; Arterial Blood Gas Tidal Volume 450 ml; Arterial Blood Gas Vent Mode ASSIST CONTROL; Arterial Blood Gas Ventilator rate 28 /MIN; Device VENTILATOR; Modified Allen's Test Unable to perform; Site Drawn LEFT RADIAL
--- NOTE | 2020-06-14 08:15 | P.PNNP_ITS ---
Progress Note: A&P Assessment and Plan (1) SUPA (acute kidney injury): Code(s): N17.9 - Acute kidney failure, unspecified Status: Acute Assessment and Plan: * Acute kidney injury * Creatinine was 1.4 then tootie to 2.2 and now 1.9. * He has not received any diuretics. * Renal ultrasound is okay * Urine electrolytes are pre renal. * presumably due to acute illness and COVID-19 and possibly some some 3rd spacing. * Continue supportive care. * Oxygenation better. Creatinine improving. Discussed with Dr. Ariza (2) Stage 3a chronic kidney disease: Code(s): N18.31 - Chronic kidney disease, stage 3a Status: Chronic Assessment and Plan: * baseline creatinine runs around 1.5mg/dl * this is likely secondary to hypertension (3) Acute hypoxemic respiratory failure: Code(s): J96.01 - Acute respiratory failure with hypoxia Status: Acute Assessment and Plan: * chest x-ray shows findings consistent with COVID-19 * currently intubated and on mechanical ventilation * FiO2 down to 50%. * finish course of antibiotics * Received dexamethasone * Received a course of convalescent plasma (4) COVID-19: Code(s): U07.1 - COVID-19 Status: Acute Assessment and Plan: * on dexamethasone since 06/04/20 * not a candidate for Remdesivir due to acute on chronic renal failure * s/p convalescent plasma 06/05/20 * continue droplet/airborne/contact isolation + precautions * (5) Hypernatremia: Code(s): E87.0 - Hyperosmolality and hypernatremia Status: Acute Assessment and Plan: * due to free water deficit * titrate free water flushes for correction * A little to 146 (6) Hypotension: Code(s): I95.9 - Hypotension, unspecified Status: Acute Assessment and Plan: * Off the Levophed. * due to sedation and need for positive pressure ventilation (7) Anemia: Code(s): D64.9 - Anemia, unspecified Status: Acute Assessment and Plan: * mild at this time * probably related to acute illness, SUPA, and CKD * No need for Epogen * follow trend of H/H Subjective Date/time seen: 06/14/20 08:15 Interval history: Patient is sedated and intubated. On the ventilator. On a little less oxygen. Off his norepinephrine. Discussed the case with Mrs. Heath and son yesterday. Review of Systems Review of Systems: ROS unobtainable: Yes unobtainable due to medical condition Exam Narrative: Exam Narrative: General: WD/WN male intubated/sedated/paralyzed and on ventilator in the supine position Heart: normal S1 and S2 but tachycardic; no rub Lungs: coarse breath sounds bilaterally Abdomen: soft, nontender, nondistended, positive bowel sounds Extremities: no edema Skin: No rash Objective Data Vital Signs Vital Signs: Vital Signs - 24 hr 06/13/20 08:30 06/13/20 08:40 06/13/20 09:32 Temperature Pulse Rate 89 89 88 Respiratory Rate 28 H 28 H 28 H Blood Pressure Pulse Oximetry 95 06/13/20 10:00 06/13/20 10:03 06/13/20 10:23 Temperature Pulse Rate 90 90 90 Respiratory Rate 28 H 28 H 28 H Blood Pressure 96/66 L Pulse Oximetry 96 06/13/20 11:40 06/13/20 12:00 06/13/20 14:00 Temper
--- NOTE | 2020-06-14 08:15 | PM.PNNEP ---
Progress Note: A&P Assessment and Plan (1) SUPA (acute kidney injury): Code(s): N17.9 - Acute kidney failure, unspecified Status: Acute Assessment and Plan: Acute kidney injury Creatinine was 1.4 then tootie to 2.2 and now 1.9. He has not received any diuretics. Renal ultrasound is okay Urine electrolytes are pre renal. presumably due to acute illness and COVID-19 and possibly some some 3rd spacing. Continue supportive care. Oxygenation better. Creatinine improving. Discussed with Dr. Ariza (2) Stage 3a chronic kidney disease: Code(s): N18.31 - Chronic kidney disease, stage 3a Status: Chronic Assessment and Plan: baseline creatinine runs around 1.5mg/dl this is likely secondary to hypertension (3) Acute hypoxemic respiratory failure: Code(s): J96.01 - Acute respiratory failure with hypoxia Status: Acute Assessment and Plan: chest x-ray shows findings consistent with COVID-19 currently intubated and on mechanical ventilation FiO2 down to 50%. finish course of antibiotics Received dexamethasone Received a course of convalescent plasma (4) COVID-19: Code(s): U07.1 - COVID-19 Status: Acute Assessment and Plan: on dexamethasone since 06/04/20 not a candidate for Remdesivir due to acute on chronic renal failure s/p convalescent plasma 06/05/20 continue droplet/airborne/contact isolation + precautions (5) Hypernatremia: Code(s): E87.0 - Hyperosmolality and hypernatremia Status: Acute Assessment and Plan: due to free water deficit titrate free water flushes for correction A little to 146 (6) Hypotension: Code(s): I95.9 - Hypotension, unspecified Status: Acute Assessment and Plan: Off the Levophed. due to sedation and need for positive pressure ventilation (7) Anemia: Code(s): D64.9 - Anemia, unspecified Status: Acute Assessment and Plan: mild at this time probably related to acute illness, SUPA, and CKD No need for Epogen follow trend of H/H Subjective Date/time seen: 06/14/20 08:15 Interval history: Patient is sedated and intubated. On the ventilator. On a little less oxygen. Off his norepinephrine. Discussed the case with Mrs. Oberkfell and son yesterday. Review of Systems Review of Systems: ROS unobtainable: Yes unobtainable due to medical condition Exam Narrative: Exam Narrative: General: WD/WN male intubated/sedated/paralyzed and on ventilator in the supine position Heart: normal S1 and S2 but tachycardic; no rub Lungs: coarse breath sounds bilaterally Abdomen: soft, nontender, nondistended, positive bowel sounds Extremities: no edema Skin: No rash Objective Data Vital Signs Vital Signs: Vital Signs - 24 hr 06/13/20 08:30 06/13/20 08:40 06/13/20 09:32 Temperature Pulse Rate 89 89 88 Respiratory Rate 28 H 28 H 28 H Blood Pressure Pulse Oximetry 95 06/13/20 10:00 06/13/20 10:03 06/13/20 10:23 Temperature Pulse Rate 90 90 90 Respiratory Rate 28 H 28 H 28 H Blood Pressure 96/66 L Pulse Oximetry 96 06/13/20 11:40 06/13/20 12:00 06/13/20 14:00 Temperature 36.2 C L Pulse Rate 83 82 74 Respiratory Rate 29 H 29 H Blood Pressure 97/73 L 95/71 L Pulse Oximetry 96 100 99 06/13/20 14:40 06/13/20 15:01 06/13/20 15:03 Temperature Pulse Rate 138 H 155 H 140 H Respiratory Rate 28 H Blood Pressure Pulse Oximetry 100 06/13/20 15:20 06/13/20 16:00 06/13/20 16:11 Temperature 36.2 C L Pulse Rate 135 H 127 H 61 Respiratory Rate 28 H 28 H 28 H Blood Pressure 81/56 L Pulse Oximetry 99 06/13/20 16:30 06/13/20 16:40 06/13/20 17:27 Temperature Pulse Rate 126 H 126 H 68 Respiratory Rate 28 H Blood Pressure 130/95 H Pulse Oximetry 06/13/20 17:28 06/13/20 17:30 06/13/20 18:00 Temperature Pulse Rate 126 H 96 70 Respiratory Rate 28 H
[2020-06-14] MEDS: ENOXAPARIN 40 MG/0.4 ML SYRINGE SUB-Q ×2 (08:23→21:05)
[2020-06-14] MEDS: PANTOPRAZOLE SODIUM IV 40 MG VIAL IV PUSH (08:24)
[2020-06-14] MEDS: FENTANYL 2,500MCG/NS250ML(*CRX 2,500 MCG/250 ML BAG 12.5 MCG IV CONT (08:34)
--- NOTE | 2020-06-14 11:23 | WPDINTPN ---
Progress Note: A&P Assessment and Plan (1) Acute hypoxemic respiratory failure: Code(s): J96.01 - Acute respiratory failure with hypoxia Status: Acute Assessment and Plan: Acute hypoxemic respiratory failure likely related COVID-19 pneumonia -patient presented the hospital on 06/03/2019 and was intubated on 06/05/2019 after failing BiPAP and high-flow therapy -chest x-ray and ABG reviewed. Chest x-ray shows persistent bilateral infiltrate as expected -low tidal volume strategy to prevent barotrauma and volume trauma. -patient was placed in prone position for many days days along with neuromuscular blockers and patient oxygen requirement had improved -06/10 patient was kept in supine position overnight as a trial which did not go well leading to increased PEEP and oxygen requirement - 06/12 patient again proned overnight and currently on 12 of PEEP and 50% FiO2. Will decrease PEEP to 10. Continue to wean FiO2 as possible -OFF Nimbex. Sedated with fentanyl and versed - continue bronchodilators (2) COVID-19: Code(s): U07.1 - COVID-19 Status: Acute Assessment and Plan: COVID-19 -results positive 06/03/2020 - s/p dexamethasone (initiated on 06/04/2020) -not a candidate for Remdesivir due to acute on chronic renal failure on admission -received a unit of convalescent plasma 06/05 -continue droplet, airborne and contact isolation/precautions -monitor inflammatory markers and trend (3) Acute on chronic renal insufficiency: Code(s): N28.9 - Disorder of kidney and ureter, unspecified; N18.9 - Chronic kidney disease, unspecified Status: Acute Assessment and Plan: Acute on chronic kidney disease likely related to hypertension, prerenal, COVID-19 -nephrology following the patient -renal ultrasound was unremarkable -creatinine decreasing, Good UO, pt has h/o CKD -hyperkalemia has resolved -continue free water free water flushes for hyperchloremia and hypernatremia -off p.o. bicarb now (4) Hypotension: Code(s): I95.9 - Hypotension, unspecified Status: Acute Assessment and Plan: Likely secondary to sedation and positive pressure ventilation. blood pressures improved - OFF Levophed (5) Dietary counseling and surveillance: Code(s): Z71.3 - Dietary counseling and surveillance Status: Acute Assessment and Plan: tolerating tube feeds P.r.n. MiraLax and Dulcolax added for constipation Stress ulcer prophylaxis: Protonix (6) DVT prophylaxis: Code(s): Z29.9 - Encounter for prophylactic measures, unspecified Status: Acute Assessment and Plan: Lovenox 40 mg SQ q.12 hours Additional Plan Code status: Full code and son by phone today and updated them with patient's current status including his respiratory failure, mechanical ventilation details, renal function and overall guarded prognosis Critical care time spent: 32 minutes Due to a high probability of clinically significant, life threatening deterioration, the patient required my highest level of preparedness to intervene emergently and I personally spent this critical care time directly and personally managing the patient. This critical care time included obtaining a history; examining the patient; pulse oximetry; ordering and review of studies; arranging urgent treatment with development of a management plan; evaluation of patient's response to treatment; frequent reassessment; and discussions with other providers. It was exclusive of separately billable procedures and treating other patients and teaching time. Please see Assessment and Plan section and the rest of the note for further information on patient assessment and treatment Subjective Date/time seen: 06/14/20 11:23 Interval history: 60-year-old male with acute respiratory failure and renal failure with COVID pneumonia. 06/05 intubated and continues on mechanical ventilation and sedation. 06/14/2019: Patient seen and ex
--- NOTE | 2020-06-14 11:25 | PCDIET ---
Nutrition Follow-Up Complete: Nutrition Diagnosis: Involuntary weight loss related to decreased appetite as evidenced by reported and documented weight loss of 4% x 2 weeks. Nutrition Goal: Patient to meet estimated nutritional needs. Goal met. Patient tolerating Nepro at 50mL/hr goal rate with 250mL water flush every 4 hours. Last recorded weight is 115.3 kg which is increased from last review. Bowel Motility: +BM overnight, per nursing. Labs Reviewed: Hgb (11.8), Hct (37.4), Glu (190), BUN (108), Cr (1.9), Na (146), Alb (2.7), PO4 (5.4), Mg (2.6) Meds Noted: Albuterol, Fentanyl, Reglan, Versed, Protonix Additional Notes: No documented skin breakdown. Nutrition Monitoring and Evaluation: Follow up every Saturday/Saturday.
[2020-06-14] MEDS: AMIODARONE 360 MG/D5W 200 ML 360 MG/200 ML BAG 16.67 MG IV CONT (12:41)
--- NOTE | 2020-06-14 19:26 | PM.IMPN ---
Progress Note: A&P Assessment and Plan (1) Acute hypoxemic respiratory failure: Code(s): J96.01 - Acute respiratory failure with hypoxia Status: Acute Assessment and Plan: On ventilator Management as per Int/CC (2) Acute on chronic renal insufficiency: Code(s): N28.9 - Disorder of kidney and ureter, unspecified; N18.9 - Chronic kidney disease, unspecified Status: Acute Assessment and Plan: Continue to monitor Nephrology consulting Follow Nephro recs. (3) Gastro-esophageal reflux disease without esophagitis: Code(s): K21.9 - Gastro-esophageal reflux disease without esophagitis Status: Acute Assessment and Plan: PPI (4) YUDY (obstructive sleep apnea): Code(s): G47.33 - Obstructive sleep apnea (adult) (pediatric) Status: Chronic Assessment and Plan: On ventilator (5) COVID-19: Code(s): U07.1 - COVID-19 Status: Acute Assessment and Plan: Was not a candidate for Remdesivir due to renal failure Received convalescent plasma. Subjective Date/time seen: 06/14/20 19:26 Patient is on ventilator support. Review of Systems Review of Systems: ROS unobtainable: Yes unobtainable due to medical condition Exam Narrative: Exam Narrative: Patient seen thru glass door, exam is Const: General: no acute distress Nutritional Appearance: average body habitus HENMT: Head: normal to inspection and normocephalic Face and sinus: other Eyes: EOM: EOMs intact bilaterally Neck: Neck: no lymphadenopathy, supple and no JVD Chest: Chest palpation & inspection: normal inspection of the chest Cardio: Jugular venous distension: no JVD GI: Inspection: normal to inspection Skin: Rashes: no rashes Neuro: General: other (under sedation) Objective Data Vital Signs Vital Signs: Vital Signs - 24 hr 06/13/20 19:42 06/13/20 20:00 06/13/20 20:03 Temperature 97.7 F Pulse Rate 61 50 L 60 Respiratory Rate 28 H 28 H Blood Pressure 120/75 120/75 Pulse Oximetry 96 06/13/20 20:30 06/13/20 20:33 06/13/20 20:35 Temperature Pulse Rate 67 69 70 Respiratory Rate 31 H 20 Blood Pressure Pulse Oximetry 99 06/13/20 22:00 06/13/20 22:33 06/13/20 23:14 Temperature Pulse Rate 74 76 74 Respiratory Rate 28 H 24 H Blood Pressure 96/63 L Pulse Oximetry 100 98 06/13/20 23:15 06/13/20 23:17 06/13/20 23:20 Temperature Pulse Rate 74 74 76 Respiratory Rate Blood Pressure 107/74 107/74 Pulse Oximetry 97 06/14/20 00:00 06/14/20 02:00 06/14/20 02:40 Temperature 98.3 F Pulse Rate 74 76 76 Respiratory Rate 28 H 28 H 20 Blood Pressure 97/62 L 110/63 Pulse Oximetry 98 98 97 06/14/20 04:00 06/14/20 05:10 06/14/20 05:23 Temperature 98.9 F Pulse Rate 80 78 85 Respiratory Rate 28 H 19 Blood Pressure 114/69 Pulse Oximetry 98 97 06/14/20 06:00 06/14/20 08:00 06/14/20 08:13 Temperature 97.7 F Pulse Rate 83 96 104 H Respiratory Rate 30 H 28 H 29 H Blood Pressure 93/58 L 106/71 Pulse Oximetry 97 98 94 06/14/20 08:34 06/14/20 08:39 06/14/20 10:00 Temperature Pulse Rate 102 H 101 H 98 Respiratory Rate 26 H 30 H 28 H Blood Pressure 112/70 Pulse Oximetry 96 06/14/20 10:59 06/14/20 12:00 06/14/20 12:12 Temperature 97.6 F Pulse Rate 98 99 95 Respiratory Rate 28 H Blood Pressure 112/69 112/69 Pulse Oximetry 95 96 06/14/20 12:41 06/14/20 12:44 06/14/20 12:52 Temperature Pulse Rate 95 92 95 Respiratory Rate 30 H 32 H Blood Pressure 112/69 Pulse Oximetry 06/14/20 13:57 06/14/20 13:58 06/14/20 14:00 Temperature Pulse Rate 99 104 H 100 Respiratory Rate 30 H 28 H Blood Pressure 123/71 Pulse Oximetry 96 95 06/14/20 16:00 06/14/20 17:29 06/14/20 17:41 Temperature 97.3 F L Pulse Rate 95 94 100 Respiratory Rate 30 H 30 H Blood Pressure 108/63 Pulse Oximetry 95 94 06/14/20 18:00 Temperature Pulse Rate 95 Respiratory Rate 3
[2020-06-15] VITALS (34 sets, daily range): BP systolic 98–152; BP diastolic 63–90; PULSE 92–117; RESP 20–30; TEMP 36.7–38.1; O2SAT 89–98
[2020-06-15] MEDS: METOCLOPRAMIDE HCL 10 MG/10 ML SOLN UDC 5 MG PO ×5 (00:01→23:54)
[2020-06-15] MEDS: AMIODARONE 360 MG/D5W 200 ML 360 MG/200 ML BAG 16.67 MG IV CONT ×3 (00:27→23:54)
[2020-06-15] MEDS: ALBUTEROL SULFATE NEB 2.5 MG/0.5 ML INH INHALATION ×4 (02:20→17:46)
[2020-06-15 04:33] LABS: Alveolar/Arterial O2 Gradient 375.5 mmHg; Base Excess ABG 6.9 mEq/l (+/-2.0); Carboxyhemoglobin 0.3 % THb (0-2.0); Fractional Inspired Oxygen 70 %; HCO3 ABG 34.3 mEq/l (22.0-26.0); Methemoglobin ABG 0.3 %THb (0-1.5); Oxygen Content ABG 16.5 %vol (16.0-22.0); Oxygen Saturation ABG 87.9 % (95.0-100.0); Oxyhemoglobin 87.1 % THb (90.0-100.0); PO2 ABG 57.1 mmHg (80.0-100.0); PO2 FiO2 Ratio Arterial Blood 0.82 %; Reduced Hemoglobin 12.3 %THb (0-5.0); Total Hemoglobin 13.5 g/dL (12.0-18.0); pH ABG 7.362 (7.350-7.450)
[2020-06-15 04:34] LABS: Modified Allen's Test Pass; PCO2 ABG 61.9 mmHg (35.0-45.0); Site Drawn LEFT RADIAL
[2020-06-15 04:35] LABS: Arterial Blood Gas PEEP 10 cmH2O; Arterial Blood Gas Tidal Volume 450 ml; Arterial Blood Gas Vent Mode CMV; Arterial Blood Gas Ventilator rate 28 /MIN; Device VENTILATOR
[2020-06-15 05:49] LABS: Hematocrit 40.1 % (42.0-52.0); Hemoglobin 12.3 g/dL (14.0-18.0); Mean Corpuscular HGB Conc 30.7 g/dl (32-36); Mean Corpuscular Hemoglobin 30.7 pg (26-34); Mean Platelet Volume 11.7 fl (7.4-10.4); Platelet Count Result 182 k/mm3 (150-375); Red Blood Count 4.01 M/mm3 (4.6-6.20); Red Cell Distribution Width 13.9 % (11.5-14.5); White Blood Count 12.6 K/mm3 (4.5-10.0)
[2020-06-15] MEDS: FENTANYL 2,500MCG/NS250ML(*CRX 2,500 MCG/250 ML BAG 12.5 MCG IV CONT (05:52)
[2020-06-15] MEDS: CENTRAL LINE FLUSH 10 ML IV PUSH ×3 (05:54→22:25)
[2020-06-15 06:04] LABS: Alanine Aminotransferase 42 U/L (4-50); Albumin Level 2.8 g/dL (3.5-5.1); Alkaline Phosphatase 130 U/L (38-126); Aspartate Amino Transferase 40 U/L (17-59); Bilirubin,Total 0.7 mg/dL (0.2-1.3); Blood Urea Nitrogen 89 mg/dL (9-20); Calcium 11.2 mg/dL (8.4-10.2); Carbon Dioxide > 40 mmol/L (22-30); Chloride 110 mmol/L (98-107); Estimated CRCL calculation 48 ml/min; Estimated Glomerular Filt Rate 36; Glucose 175 mg/dL (75-110); Magnesium 2.3 mg/dL (1.6-2.3); Phosphorus 4.9 mg/dL (2.5-4.5); Potassium 4.6 mmol/L (3.4-5.0); Sodium 149 mmol/L (137-145)
--- NOTE | 2020-06-15 07:52 | P.PNNP_ITS ---
Progress Note: A&P Assessment and Plan (1) SUPA (acute kidney injury): Code(s): N17.9 - Acute kidney failure, unspecified Status: Acute Assessment and Plan: * Acute kidney injury * Creatinine was 1.4 then tootie to 2.2 and now 1.9. * This seems to have stabilized. * Renal ultrasound is okay * Urine electrolytes are pre renal. * presumably due to acute illness and COVID-19 and possibly some some 3rd spacing. * Continue supportive care. Discussed with Dr. Ariza (2) Stage 3a chronic kidney disease: Code(s): N18.31 - Chronic kidney disease, stage 3a Status: Chronic Assessment and Plan: * baseline creatinine runs around 1.5mg/dl * this is likely secondary to hypertension (3) Acute hypoxemic respiratory failure: Code(s): J96.01 - Acute respiratory failure with hypoxia Status: Acute Assessment and Plan: * chest x-ray shows findings consistent with COVID-19 * currently intubated and on mechanical ventilation * FiO2 70% * finish course of antibiotics * Received dexamethasone * Received a course of convalescent plasma (4) COVID-19: Code(s): U07.1 - COVID-19 Status: Acute Assessment and Plan: * on dexamethasone since 06/04/20 * not a candidate for Remdesivir due to acute on chronic renal failure * s/p convalescent plasma 06/05/20 * continue droplet/airborne/contact isolation + precautions (5) Hypernatremia: Code(s): E87.0 - Hyperosmolality and hypernatremia Status: Acute Assessment and Plan: * due to free water deficit * Sodium of again to 149. * Will give a little D5W. (6) Hypotension: Code(s): I95.9 - Hypotension, unspecified Status: Acute Assessment and Plan: * Off the Levophed. * due to sedation and need for positive pressure ventilation (7) Anemia: Code(s): D64.9 - Anemia, unspecified Status: Acute Assessment and Plan: * mild at this time * probably related to acute illness, SUPA, and CKD * No need for Epogen * follow trend of H/H (8) Hypercalcemia: Code(s): E83.52 - Hypercalcemia Status: Acute Assessment and Plan: Calcium high. Possibly due to bed rest. Will check PTH. If it continues to rise we can give Calcitonin and or pamidronate. Subjective Date/time seen: 06/15/20 07:52 Interval history: Patient is sedated and intubated. On the ventilator. FiO2 70%, peep of ten. Exam Narrative: Exam Narrative: General: WD/WN male intubated/sedated/paralyzed and on ventilator in the supine position Heart: Regular rhythm. Rate right at 100; no rub or gallop Lungs: coarse breath sounds bilaterally Abdomen: soft, nontender, nondistended, positive bowel sounds Extremities: no edema Skin: No rash or subcu nodules Objective Data Vital Signs Vital Signs: Vital Signs - 24 hr 06/14/20 08:00 06/14/20 08:13 06/14/20 08:34 Temperature 36.5 C Pulse Rate 96 104 H 102 H Respiratory Rate 28 H 29 H 26 H Blood Pressure 106/71 Pulse Oximetry 98 94 06/14/20 08:39 06/14/20 10:00 06/14/20 10:59 Temperature Pulse Rate 101 H 98 98 Respiratory Rate 30 H 28 H Blood Pressure 112/70 Pulse Oximetry 96 95 06/14/20 12:00 06/14/20 12:12 06/14/20 12:41
--- NOTE | 2020-06-15 07:52 | PM.PNNEP ---
Progress Note: A&P Assessment and Plan (1) SUPA (acute kidney injury): Code(s): N17.9 - Acute kidney failure, unspecified Status: Acute Assessment and Plan: Acute kidney injury Creatinine was 1.4 then tootie to 2.2 and now 1.9. This seems to have stabilized. Renal ultrasound is okay Urine electrolytes are pre renal. presumably due to acute illness and COVID-19 and possibly some some 3rd spacing. Continue supportive care. Discussed with Dr. Ariza (2) Stage 3a chronic kidney disease: Code(s): N18.31 - Chronic kidney disease, stage 3a Status: Chronic Assessment and Plan: baseline creatinine runs around 1.5mg/dl this is likely secondary to hypertension (3) Acute hypoxemic respiratory failure: Code(s): J96.01 - Acute respiratory failure with hypoxia Status: Acute Assessment and Plan: chest x-ray shows findings consistent with COVID-19 currently intubated and on mechanical ventilation FiO2 70% finish course of antibiotics Received dexamethasone Received a course of convalescent plasma (4) COVID-19: Code(s): U07.1 - COVID-19 Status: Acute Assessment and Plan: on dexamethasone since 06/04/20 not a candidate for Remdesivir due to acute on chronic renal failure s/p convalescent plasma 06/05/20 continue droplet/airborne/contact isolation + precautions (5) Hypernatremia: Code(s): E87.0 - Hyperosmolality and hypernatremia Status: Acute Assessment and Plan: due to free water deficit Sodium of again to 149. Will give a little D5W. (6) Hypotension: Code(s): I95.9 - Hypotension, unspecified Status: Acute Assessment and Plan: Off the Levophed. due to sedation and need for positive pressure ventilation (7) Anemia: Code(s): D64.9 - Anemia, unspecified Status: Acute Assessment and Plan: mild at this time probably related to acute illness, SUPA, and CKD No need for Epogen follow trend of H/H (8) Hypercalcemia: Code(s): E83.52 - Hypercalcemia Status: Acute Assessment and Plan: Calcium high. Possibly due to bed rest. Will check PTH. If it continues to rise we can give Calcitonin and or pamidronate. Subjective Date/time seen: 06/15/20 07:52 Interval history: Patient is sedated and intubated. On the ventilator. FiO2 70%, peep of ten. Exam Narrative: Exam Narrative: General: WD/WN male intubated/sedated/paralyzed and on ventilator in the supine position Heart: Regular rhythm. Rate right at 100; no rub or gallop Lungs: coarse breath sounds bilaterally Abdomen: soft, nontender, nondistended, positive bowel sounds Extremities: no edema Skin: No rash or subcu nodules Objective Data Vital Signs Vital Signs: Vital Signs - 24 hr 06/14/20 08:00 06/14/20 08:13 06/14/20 08:34 Temperature 36.5 C Pulse Rate 96 104 H 102 H Respiratory Rate 28 H 29 H 26 H Blood Pressure 106/71 Pulse Oximetry 98 94 06/14/20 08:39 06/14/20 10:00 06/14/20 10:59 Temperature Pulse Rate 101 H 98 98 Respiratory Rate 30 H 28 H Blood Pressure 112/70 Pulse Oximetry 96 95 06/14/20 12:00 06/14/20 12:12 06/14/20 12:41 Temperature 36.4 C Pulse Rate 99 95 95 Respiratory Rate 28 H Blood Pressure 112/69 112/69 112/69 Pulse Oximetry 96 06/14/20 12:44 06/14/20 12:52 06/14/20 13:57 Temperature Pulse Rate 92 95 99 Respiratory Rate 30 H 32 H 30 H Blood Pressure Pulse Oximetry 06/14/20 13:58 06/14/20 14:00 06/14/20 16:00 Temperature 36.3 C L Pulse Rate 104 H 100 95 Respiratory Rate 28 H 30 H Blood Pressure 123/71 108/63 Pulse Oximetry 96 95 95 06/14/20 17:29 06/14/20 17:41 06/14/20 18:00 Temperature Pulse Rate 94 100 95 Respiratory Rate 30 H 30 H Blood Pressure 122/74 Pulse Oximetry 94 96 06/14/20 20:00 06/14/20 20:25 06/14/20 20:26 Temperature 36.6 C Pulse Rate 97
[2020-06-15 08:29] LABS: Parathyroid Intact 39.5 pg/mL (7.5-53.5)
[2020-06-15] MEDS: ENOXAPARIN 40 MG/0.4 ML SYRINGE SUB-Q ×2 (09:12→20:17)
[2020-06-15] MEDS: PANTOPRAZOLE SODIUM IV 40 MG VIAL IV PUSH (09:13)
--- NOTE | 2020-06-15 11:21 | PCDIET ---
ICU Rounding Note: Patient tolerating Nepro at 50mL/hr goal rate with 250mL water flush every 4 hours. Last recorded weight is 115.5kg which is stable with last review. Bowel Motility: BM x 1 on 06/14/20. Labs Reviewed: Hgb (12.3), Hct (40.1), Glu (175), BUN (89), Cr (1.9), Na (149), Alb (2.8), Ca (11.2), PO4 (4.9) Meds Noted: Albuterol, Fentanyl, Reglan, Versed, Levophed, Protonix Additional Notes: No documented skin breakdown. Following daily in ICU rounds. Assessing/reassessing every Saturday/Saturday.
--- NOTE | 2020-06-15 13:20 | WPDINTPN ---
Progress Note: A&P Assessment and Plan (1) Acute hypoxemic respiratory failure: Code(s): J96.01 - Acute respiratory failure with hypoxia Status: Acute Assessment and Plan: Acute hypoxemic respiratory failure likely related COVID-19 pneumonia -patient presented the hospital on 06/03/2019 and was intubated on 06/05/2019 after failing BiPAP and high-flow therapy -chest x-ray and ABG reviewed. Chest x-ray shows persistent bilateral infiltrate as expected -low tidal volume strategy to prevent barotrauma and volume trauma. -patient was placed in prone position for many days days along with neuromuscular blockers and patient oxygen requirement had improved -06/10 patient was kept in supine position overnight as a trial which did not go well leading to increased PEEP and oxygen requirement - 06/12 patient again proned overnight and currently on 10 of PEEP and 70% FiO2. . Continue to wean FiO2 as possible -OFF Nimbex. Sedated with fentanyl and versed - continue bronchodilators (2) COVID-19: Code(s): U07.1 - COVID-19 Status: Acute Assessment and Plan: COVID-19 -results positive 06/03/2020 - s/p dexamethasone (initiated on 06/04/2020) -not a candidate for Remdesivir due to acute on chronic renal failure on admission -received a unit of convalescent plasma 06/05 -continue droplet, airborne and contact isolation/precautions -monitor inflammatory markers and trend (3) Acute on chronic renal insufficiency: Code(s): N28.9 - Disorder of kidney and ureter, unspecified; N18.9 - Chronic kidney disease, unspecified Status: Acute Assessment and Plan: Acute on chronic kidney disease likely related to hypertension, prerenal, COVID-19 -nephrology following the patient -renal ultrasound was unremarkable -creatinine decreasing, Good UO, pt has h/o CKD -hyperkalemia has resolved -continue free water free water flushes for hyperchloremia and hypernatremia -off p.o. bicarb now (4) Hypotension: Code(s): I95.9 - Hypotension, unspecified Status: Acute Assessment and Plan: Likely secondary to sedation and positive pressure ventilation. blood pressures improved - OFF Levophed (5) Dietary counseling and surveillance: Code(s): Z71.3 - Dietary counseling and surveillance Status: Acute Assessment and Plan: tolerating tube feeds P.r.n. MiraLax and Dulcolax added for constipation Stress ulcer prophylaxis: Protonix (6) DVT prophylaxis: Code(s): Z29.9 - Encounter for prophylactic measures, unspecified Status: Acute Assessment and Plan: Lovenox 40 mg SQ q.12 hours Additional Plan Code status: Full code Critical care time spent: 32 minutes Due to a high probability of clinically significant, life threatening deterioration, the patient required my highest level of preparedness to intervene emergently and I personally spent this critical care time directly and personally managing the patient. This critical care time included obtaining a history; examining the patient; pulse oximetry; ordering and review of studies; arranging urgent treatment with development of a management plan; evaluation of patient's response to treatment; frequent reassessment; and discussions with other providers. It was exclusive of separately billable procedures and treating other patients and teaching time. Please see Assessment and Plan section and the rest of the note for further information on patient assessment and treatment Subjective Date/time seen: 06/15/20 13:20 Interval history: 60-year-old male with acute respiratory failure and renal failure with COVID pneumonia. 06/05 intubated and continues on mechanical ventilation and sedation. 06/15/2020: Remains intubated, on CMV mode of ventilation, desaturating overnight, FiO2 had to be increased to 70%. Patient remains on a PEEP 10. Urine output has been adequate, patient is afebrile, and hemodynamically stable.
[2020-06-15 21:20] LABS: Sodium Urine Random 42 meq/L
[2020-06-15] MEDS: ACETAMINOPHEN 325 MG TABLET 650 MG PO (22:11)
[2020-06-16] VITALS (43 sets, daily range): BP systolic 77–145; BP diastolic 61–98; PULSE 65–118; RESP 24–32; TEMP 36.3–38; O2SAT 76–98
[2020-06-16 00:12] LABS: Glucose Point of Care 167 (65-105)
[2020-06-16 03:30] LABS: Alveolar/Arterial O2 Gradient 607.4 mmHg; Base Excess ABG 3.9 mEq/l (+/-2.0); Fractional Inspired Oxygen 100 %; HCO3 ABG 31.6 mEq/l (22.0-26.0); Methemoglobin ABG 0.2 %THb (0-1.5); Oxygen Content ABG 14.2 %vol (16.0-22.0); Oxyhemoglobin 74.3 % THb (90.0-100.0); PO2 FiO2 Ratio Arterial Blood 0.44 %; Reduced Hemoglobin 25.5 %THb (0-5.0); Total Hemoglobin 13.6 g/dL (12.0-18.0); pH ABG 7.327 (7.350-7.450)
[2020-06-16 03:32] LABS: PCO2 ABG 61.7 mmHg (35.0-45.0); PO2 ABG 43.9 mmHg (80.0-100.0)
[2020-06-16 03:33] LABS: Arterial Blood Gas Ventilator rate 28 /MIN; Device VENTILATOR; Modified Allen's Test Pass; Oxygen Saturation ABG 75.1 % (95.0-100.0); Site Drawn LEFT RADIAL
[2020-06-16 03:34] LABS: Arterial Blood Gas PEEP 14 cmH2O; Arterial Blood Gas Tidal Volume 450 ml; Arterial Blood Gas Vent Mode CMV
[2020-06-16] MEDS: FENTANYL 2,500MCG/NS250ML(*CRX 2,500 MCG/250 ML BAG 17.5 MCG IV CONT ×2 (03:34→17:07)
[2020-06-16] MEDS: ROCURONIUM BROMIDE 50 MG/5 ML VIAL IV PUSH ×2 (03:36→04:40)
[2020-06-16] MEDS: CISATRACURIUM BESYLATE 200 MG in DEXTROSE 5% 80 ML 10.4 ML IV CONT (03:55)
[2020-06-16] MEDS: EPOPROSTENOL SODIUM 0.5 MG VIAL 1 MG INHALATION ×3 (04:23→20:52)
[2020-06-16] MEDS: METOCLOPRAMIDE HCL 10 MG/10 ML SOLN UDC 5 MG PO (06:00)
[2020-06-16] MEDS: CENTRAL LINE FLUSH 10 ML IV PUSH ×3 (06:01→22:17)
[2020-06-16 06:47] LABS: Hematocrit 39.8 % (42.0-52.0); Hemoglobin 12.1 g/dL (14.0-18.0); Mean Corpuscular HGB Conc 30.4 g/dl (32-36); Mean Corpuscular Hemoglobin 30.9 pg (26-34); Mean Corpuscular Volume 101.5 fl (80-100); Mean Platelet Volume 12.5 fl (7.4-10.4); Platelet Count Result 181 k/mm3 (150-375); Red Blood Count 3.92 M/mm3 (4.6-6.20); White Blood Count 14.4 K/mm3 (4.5-10.0)
[2020-06-16 06:53] LABS: Alveolar/Arterial O2 Gradient 515.3 mmHg; Base Excess ABG 4.5 mEq/l (+/-2.0); Carboxyhemoglobin 0.3 % THb (0-2.0); Fractional Inspired Oxygen 100 %; Methemoglobin ABG 0.3 %THb (0-1.5); Oxygen Content ABG 18.4 %vol (16.0-22.0); Oxygen Saturation ABG 98.5 % (95.0-100.0); Oxyhemoglobin 97.3 % THb (90.0-100.0); PO2 ABG 136.5 mmHg (80.0-100.0); PO2 FiO2 Ratio Arterial Blood 1.37 %; Reduced Hemoglobin 2.1 %THb (0-5.0); Total Hemoglobin 13.3 g/dL (12.0-18.0); pH ABG 7.336 (7.350-7.450)
[2020-06-16 06:54] LABS: Arterial Blood Gas Vent Mode CMV; Arterial Blood Gas Ventilator rate 28 /MIN; Device VENTILATOR; Modified Allen's Test Pass; PCO2 ABG 61.2 mmHg (35.0-45.0); Site Drawn RIGHT RADIAL
[2020-06-16 06:55] LABS: Arterial Blood Gas PEEP 16 cmH2O; Arterial Blood Gas Tidal Volume 450 ml
[2020-06-16 06:59] LABS: Alanine Aminotransferase 36 U/L (4-50); Albumin Level 2.8 g/dL (3.5-5.1); Alkaline Phosphatase 116 U/L (38-126); Anion Gap -1 mmol/L (8-16); Aspartate Amino Transferase 34 U/L (17-59); Bilirubin,Total 0.8 mg/dL (0.2-1.3); Blood Urea Nitrogen 95 mg/dL (9-20); Calcium 11.6 mg/dL (8.4-10.2); Carbon Dioxide 39 mmol/L (22-30); Chloride 110 mmol/L (98-107); Estimated CRCL calculation 44 ml/min; Estimated Glomerular Filt Rate 32; Glucose 130 mg/dL (75-110); Magnesium 2.5 mg/dL (1.6-2.3); Phosphorus 5.9 mg/dL (2.5-4.5); Potassium 4.8 mmol/L (3.4-5.0); Sodium 148 mmol/L (137-145)
[2020-06-16] MEDS: ENOXAPARIN 40 MG/0.4 ML SYRINGE SUB-Q ×2 (07:58→20:35)
[2020-06-16] MEDS: PANTOPRAZOLE SODIUM IV 40 MG VIAL IV PUSH (07:59)
--- NOTE | 2020-06-16 08:15 | PC.NURSE ---
Updated patient's on events overnight and the need for flolan, nimbex, and proned.
--- NOTE | 2020-06-16 12:06 | P.PNNP_ITS ---
Progress Note: A&P Assessment and Plan (1) SUPA (acute kidney injury): Code(s): N17.9 - Acute kidney failure, unspecified Status: Acute Assessment and Plan: * Acute kidney injury * Creatinine was 1.4 then tootie to 2.2 and now varying around 2.0. * This seems to have stabilized , however with the worsening respiratory condition, the renal function may deteriorate.. * Renal ultrasound is okay * Urine electrolytes are pre renal. * presumably due to acute illness and COVID-19 and possibly some some 3rd spacing. * Continue supportive care. Discussed with Dr. Ariza (2) Stage 3a chronic kidney disease: Code(s): N18.31 - Chronic kidney disease, stage 3a Status: Chronic Assessment and Plan: * baseline creatinine runs around 1.5mg/dl * this is likely secondary to hypertension (3) Acute hypoxemic respiratory failure: Code(s): J96.01 - Acute respiratory failure with hypoxia Status: Acute Assessment and Plan: * chest x-ray shows findings consistent with COVID-19 * currently intubated and on mechanical ventilation * FiO2 Up to 100%. * On Flolan and Nimbex. * in prone position (4) COVID-19: Code(s): U07.1 - COVID-19 Status: Acute Assessment and Plan: * on dexamethasone since 06/04/20 * not a candidate for Remdesivir due to acute on chronic renal failure * s/p convalescent plasma 06/05/20 * continue droplet/airborne/contact isolation + precautions (5) Hypernatremia: Code(s): E87.0 - Hyperosmolality and hypernatremia Status: Acute Assessment and Plan: * due to free water deficit * Sodium is still a little bit high at 148. (6) Hypotension: Code(s): I95.9 - Hypotension, unspecified Status: Acute Assessment and Plan: * Off the Levophed. * due to sedation and need for positive pressure ventilation (7) Anemia: Code(s): D64.9 - Anemia, unspecified Status: Acute Assessment and Plan: * mild at this time * probably related to acute illness, SUPA, and CKD * No need for Epogen * follow trend of H/H (8) Hypercalcemia: Code(s): E83.52 - Hypercalcemia Status: Acute Assessment and Plan: Calcium high. Possibly due to bed rest. Will check PTH. If it continues to rise we can give Calcitonin and or pamidronate. Subjective Date/time seen: 06/16/20 12:06 Interval history: Patient is sedated and intubated. On the ventilator. He decompensated respiratory ann last night. Now back on Nimbex, Flolan, and in the prone position. Review of Systems Review of Systems: ROS unobtainable: Yes unobtainable due to medical condition Exam Narrative: Exam Narrative: General: WD/WN male intubated/sedated/paralyzed and on ventilator in the Prone position Heart: Regular rhythm. Rate right at 100; no rub or gallop Lungs: coarse breath sounds bilaterally Abdomen: soft, nontender, nondistended, positive bowel sounds Extremities: no edema Skin: No rash or subcu nodules Objective Data Vital Signs Vital Signs: Vital Signs - 24 hr 06/15/20 13:31 06/15/20 13:36 06/15/20 13:37 Temperature Pulse Rate 101 H 92 96 Respiratory Rate 23 H 28 H Blood Pressure Pulse Oximetry 94 06/15/20 14:00 06/15/20 16:00 06/15/20 17
--- NOTE | 2020-06-16 12:06 | PM.PNNEP ---
Progress Note: A&P Assessment and Plan (1) SUPA (acute kidney injury): Code(s): N17.9 - Acute kidney failure, unspecified Status: Acute Assessment and Plan: Acute kidney injury Creatinine was 1.4 then tootie to 2.2 and now varying around 2.0. This seems to have stabilized , however with the worsening respiratory condition, the renal function may deteriorate.. Renal ultrasound is okay Urine electrolytes are pre renal. presumably due to acute illness and COVID-19 and possibly some some 3rd spacing. Continue supportive care. Discussed with Dr. Ariza (2) Stage 3a chronic kidney disease: Code(s): N18.31 - Chronic kidney disease, stage 3a Status: Chronic Assessment and Plan: baseline creatinine runs around 1.5mg/dl this is likely secondary to hypertension (3) Acute hypoxemic respiratory failure: Code(s): J96.01 - Acute respiratory failure with hypoxia Status: Acute Assessment and Plan: chest x-ray shows findings consistent with COVID-19 currently intubated and on mechanical ventilation FiO2 Up to 100%. On Flolan and Nimbex. in prone position (4) COVID-19: Code(s): U07.1 - COVID-19 Status: Acute Assessment and Plan: on dexamethasone since 06/04/20 not a candidate for Remdesivir due to acute on chronic renal failure s/p convalescent plasma 06/05/20 continue droplet/airborne/contact isolation + precautions (5) Hypernatremia: Code(s): E87.0 - Hyperosmolality and hypernatremia Status: Acute Assessment and Plan: due to free water deficit Sodium is still a little bit high at 148. (6) Hypotension: Code(s): I95.9 - Hypotension, unspecified Status: Acute Assessment and Plan: Off the Levophed. due to sedation and need for positive pressure ventilation (7) Anemia: Code(s): D64.9 - Anemia, unspecified Status: Acute Assessment and Plan: mild at this time probably related to acute illness, SUPA, and CKD No need for Epogen follow trend of H/H (8) Hypercalcemia: Code(s): E83.52 - Hypercalcemia Status: Acute Assessment and Plan: Calcium high. Possibly due to bed rest. Will check PTH. If it continues to rise we can give Calcitonin and or pamidronate. Subjective Date/time seen: 06/16/20 12:06 Interval history: Patient is sedated and intubated. On the ventilator. He decompensated respiratory ann last night. Now back on Nimbex, Flolan, and in the prone position. Review of Systems Review of Systems: ROS unobtainable: Yes unobtainable due to medical condition Exam Narrative: Exam Narrative: General: WD/WN male intubated/sedated/paralyzed and on ventilator in the Prone position Heart: Regular rhythm. Rate right at 100; no rub or gallop Lungs: coarse breath sounds bilaterally Abdomen: soft, nontender, nondistended, positive bowel sounds Extremities: no edema Skin: No rash or subcu nodules Objective Data Vital Signs Vital Signs: Vital Signs - 24 hr 06/15/20 13:31 06/15/20 13:36 06/15/20 13:37 Temperature Pulse Rate 101 H 92 96 Respiratory Rate 23 H 28 H Blood Pressure Pulse Oximetry 94 06/15/20 14:00 06/15/20 16:00 06/15/20 17:47 Temperature 37.7 C H Pulse Rate 106 H 102 H 96 Respiratory Rate 20 25 H 28 H Blood Pressure 105/89 104/70 Pulse Oximetry 94 93 06/15/20 17:48 06/15/20 18:00 06/15/20 20:00 Temperature 37.8 C H Pulse Rate 96 103 H 104 H Respiratory Rate 22 H 28 H Blood Pressure 104/70 144/78 H Pulse Oximetry 94 91 91 06/15/20 20:35 06/15/20 22:00 06/15/20 22:11 Temperature 38.1 C H 38.1 C H Pulse Rate 108 H 117 H Respiratory Rate 28 H 28 H Blood Pressure 152/85 H Pulse Oximetry 89 L 06/15/20 23:11 06/15/20 23:16 06/15/20 23:54 Temperature 38.1 C H Pulse Rate 112 H 113 H Respiratory Rate Blood Pressure 126/78 Pulse Oximet
[2020-06-16] MEDS: CISATRACURIUM BESYLATE 200 MG in DEXTROSE 5% 80 ML 6.93 ML IV CONT (12:42)
--- NOTE | 2020-06-16 13:15 | PCDIET ---
ICU Rounding Note: Patient previously tolerating Nepro at 50mL/hr goal rate. Tube feeds held overnight due to desaturation and plan to prone patient today. Last recorded weight is 116.4kg which is increased from last review. Bowel Motility: BM x 1 today. Labs Reviewed: Hgb (12.1), Hct (39.8), Glu (130), BUN (95), Cr (2.1), Cl (110), Ca (11.6), Na (148), Alb (2.8), PO4 (5.9) Meds Noted: Albuterol, Nimbex, Fentanyl, Reglan, Versed, Levophed, Pamidronate, Protonix, Miralax Additional Notes: No documented pressure sores. Following daily in ICU rounds. Assessing/reassessing every Saturday/Saturday.
--- NOTE | 2020-06-16 14:23 | WPDINTPN ---
Progress Note: A&P Assessment and Plan (1) Acute hypoxemic respiratory failure: Code(s): J96.01 - Acute respiratory failure with hypoxia Status: Acute Assessment and Plan: Acute hypoxemic respiratory failure likely related COVID-19 pneumonia -patient presented the hospital on 06/03/2019 and was intubated on 06/05/2019 after failing BiPAP and high-flow therapy -on 06/16/2020 early hours, patient decompensated, desaturated. Peep was increased to 16 and FiO2 was increased to 100%. Patient started on Flolan (06/16). Placed back on Nimbex for neuromuscular blockade for vent synchrony. -patient had an auto PEEP of 10 cm water, decreased respiratory rate and increased I to E ratio with improvement in the order PEEP along with O2 saturations -chest x-ray showed worsening airspace disease -ABGs reviewed -patient was prone during the early hours on 06/16/2020 Continue sedation with fentanyl and Versed, Nimbex for neuromuscular blockade - continue bronchodilators (2) COVID-19: Code(s): U07.1 - COVID-19 Status: Acute Assessment and Plan: COVID-19 -results positive 06/03/2020 - s/p dexamethasone (initiated on 06/04/2020) -not a candidate for Remdesivir due to acute on chronic renal failure on admission -received a unit of convalescent plasma 06/05 -continue droplet, airborne and contact isolation/precautions -monitor inflammatory markers and trend (3) Acute on chronic renal insufficiency: Code(s): N28.9 - Disorder of kidney and ureter, unspecified; N18.9 - Chronic kidney disease, unspecified Status: Acute Assessment and Plan: Acute on chronic kidney disease likely related to hypertension, prerenal, COVID-19 -nephrology following the patient -renal ultrasound was unremarkable -creatinine decreasing, Good UO, pt has h/o CKD -hyperkalemia has resolved -continue free water free water flushes for hyperchloremia and hypernatremia -off p.o. bicarb now (4) Hypotension: Code(s): I95.9 - Hypotension, unspecified Status: Acute Assessment and Plan: Likely secondary to sedation and positive pressure ventilation. blood pressures improved - OFF Levophed (5) Dietary counseling and surveillance: Code(s): Z71.3 - Dietary counseling and surveillance Status: Acute Assessment and Plan: tolerating tube feeds P.r.n. MiraLax and Dulcolax added for constipation Stress ulcer prophylaxis: Protonix (6) DVT prophylaxis: Code(s): Z29.9 - Encounter for prophylactic measures, unspecified Status: Acute Assessment and Plan: Lovenox 40 mg SQ q.12 hours Additional Plan Discussed with Carrie, . Updated her with patient's change in condition. I answered all questions. She is aware that patient is requiring significant amount of ventilatory support, is on Flolan and a neuromuscular blockade with Nimbex. Will keep her posted Code status: Full code Critical care time spent: 36 minutes Due to a high probability of clinically significant, life threatening deterioration, the patient required my highest level of preparedness to intervene emergently and I personally spent this critical care time directly and personally managing the patient. This critical care time included obtaining a history; examining the patient; pulse oximetry; ordering and review of studies; arranging urgent treatment with development of a management plan; evaluation of patient's response to treatment; frequent reassessment; and discussions with other providers. It was exclusive of separately billable procedures and treating other patients and teaching time. Please see Assessment and Plan section and the rest of the note for further information on patient assessment and treatment Subjective Date/time seen: 06/16/20 14:23 Interval history: 60-year-old male with acute respiratory failure and renal failure with COVID pneumonia. 06/05 intubated and continues on mechanical
[2020-06-16] MEDS: NOREPINEPHRINE 8 MG/D5W 250 ML 8 MG/250 ML BAG 9.38 MG IV CONT (22:17)
[2020-06-17] VITALS (53 sets, daily range): BP systolic 82–112; BP diastolic 54–78; PULSE 26–162; RESP 24–26; TEMP 36.4–38.4; O2SAT 86–98
[2020-06-17 00:20] LABS: Glucose Point of Care 85 (65-105)
[2020-06-17] MEDS: CISATRACURIUM BESYLATE 200 MG in DEXTROSE 5% 80 ML 10.4 ML IV CONT (01:03)
[2020-06-17] MEDS: EPOPROSTENOL SODIUM 0.5 MG VIAL 1 MG INHALATION ×4 (02:02→21:46)
--- NOTE | 2020-06-17 02:32 | ECG_ITS ---
Measurements Intervals [place] Rate: 142 P: SC: 0 QRS: 48 QRSD: 88 T: 0 QT: 165 QTc: 254 Interpretive Statements SUPRAVENTRICULAR TACHYCARDIA NONSPECIFIC ST & T-WAVE ABNORMALITY- DIFFUSE LEADS ABNORMAL ECG Electronically Signed On 06-17-2020 8:18:55 [employer] by Zane Hawley D.O.
[2020-06-17] MEDS: AMIODARONE 150 MG/D5W 100 ML 150 MG/100 ML BAG 600 MG IV CONT (03:00)
[2020-06-17] MEDS: AMIODARONE 360 MG/D5W 200 ML 360 MG/200 ML BAG 33.33 MG IV CONT (03:10)
--- NOTE | 2020-06-17 03:19 | PC.NURSE ---
Patient placed in prone position, RN, RT and ICU tank maker wood at bedside. Patient tolerated position change oxygen Saturations at 94%.
[2020-06-17 03:37] LABS: Glucose Point of Care 106 (65-105)
[2020-06-17 04:28] LABS: Alveolar/Arterial O2 Gradient 500.6 mmHg; Base Excess ABG 3.2 mEq/l (+/-2.0); Fractional Inspired Oxygen 90 %; HCO3 ABG 31.6 mEq/l (22.0-26.0); Methemoglobin ABG 0.3 %THb (0-1.5); Oxygen Content ABG 17.9 %vol (16.0-22.0); Oxygen Saturation ABG 92.6 % (95.0-100.0); PCO2 ABG 66.5 mmHg (35.0-45.0); PO2 ABG 72.9 mmHg (80.0-100.0); PO2 FiO2 Ratio Arterial Blood 0.81 %; Reduced Hemoglobin 7.7 %THb (0-5.0); Total Hemoglobin 13.8 g/dL (12.0-18.0); pH ABG 7.295 (7.350-7.450)
[2020-06-17 04:29] LABS: Arterial Blood Gas Ventilator rate 24 /MIN; Device VENTILATOR; Modified Allen's Test Pass; Site Drawn LEFT RADIAL
[2020-06-17 04:30] LABS: Arterial Blood Gas PEEP 16 cmH2O; Arterial Blood Gas Tidal Volume 450 ml; Arterial Blood Gas Vent Mode CMV
[2020-06-17] MEDS: CENTRAL LINE FLUSH 10 ML IV PUSH ×3 (05:04→20:34)
[2020-06-17 05:13] LABS: Hematocrit 41.2 % (42.0-52.0); Hemoglobin 12.6 g/dL (14.0-18.0); Mean Corpuscular HGB Conc 30.6 g/dl (32-36); Mean Corpuscular Volume 101.2 fl (80-100); Mean Platelet Volume 12.4 fl (7.4-10.4); Platelet Count Result 216 k/mm3 (150-375); Red Blood Count 4.07 M/mm3 (4.6-6.20); Red Cell Distribution Width 13.9 % (11.5-14.5); White Blood Count 14.1 K/mm3 (4.5-10.0)
[2020-06-17 05:32] LABS: Anion Gap 4 mmol/L (8-16); Blood Urea Nitrogen 114 mg/dL (9-20); Calcium 10.9 mg/dL (8.4-10.2); Carbon Dioxide 36 mmol/L (22-30); Chloride 109 mmol/L (98-107); Estimated CRCL calculation 38 ml/min; Estimated Glomerular Filt Rate 28; Glucose 118 mg/dL (75-110); Magnesium 2.8 mg/dL (1.6-2.3); Phosphorus 7.7 mg/dL (2.5-4.5); Potassium 4.5 mmol/L (3.4-5.0); Sodium 149 mmol/L (137-145)
[2020-06-17] MEDS: FENTANYL 2,500MCG/NS250ML(*CRX 2,500 MCG/250 ML BAG 17.5 MCG IV CONT ×2 (08:07→20:32)
[2020-06-17] MEDS: ENOXAPARIN 40 MG/0.4 ML SYRINGE SUB-Q ×2 (08:11→20:31)
[2020-06-17] MEDS: PANTOPRAZOLE SODIUM IV 40 MG VIAL IV PUSH (08:12)
[2020-06-17] MEDS: CISATRACURIUM BESYLATE 200 MG in DEXTROSE 5% 80 ML 13.86 ML IV CONT (08:41)
[2020-06-17] MEDS: AMIODARONE 360 MG/D5W 200 ML 360 MG/200 ML BAG 16.67 MG IV CONT ×2 (08:44→20:30)
--- NOTE | 2020-06-17 12:00 | PCDIET ---
Nutrition Follow-Up Complete: Nutrition Diagnosis: Involuntary weight loss related to decreased appetite as evidenced by reported and documented weight loss of 4% x 2 weeks. Nutrition Goal: Patient to meet estimated nutritional needs. Goal in progress. Tube feedings held for proning, per MD; however, MD ordered to resume tube feedings and add volume based feeding protocol. Patient continues on 250mL water flush every 4 hours. Last recorded weight is 115.4 kg which is decreased from last review. Bowel Motility: Last documented BM on 06/16/20. Labs Reviewed: Hgb (12.6), Hct (41.2), BUN (114), Cr (2.4), Cl (109), Na (149), Phos (7.7), Ca (10.9), Mg (2.8) Meds Noted: Albuterol, Nimbex, Fentanyl, Versed, Levophed, Protonix Additional Notes: No documented pressure ulcers. Will continue to monitor with same goal. Nutrition Monitoring and Evaluation: Follow up every Saturday/Saturday.
[2020-06-17 12:43] LABS: Glucose Point of Care 100 (65-105)
[2020-06-17 13:19] LABS: Alveolar/Arterial O2 Gradient 543.2 mmHg; Base Excess ABG 2.2 mEq/l (+/-2.0); Fractional Inspired Oxygen 100 %; HCO3 ABG 30.3 mEq/l (22.0-26.0); Oxygen Content ABG 17.6 %vol (16.0-22.0); Oxygen Saturation ABG 97.1 % (95.0-100.0); Oxyhemoglobin 96.3 % THb (90.0-100.0); PO2 ABG 105.1 mmHg (80.0-100.0); PO2 FiO2 Ratio Arterial Blood 1.05 %; Total Hemoglobin 12.9 g/dL (12.0-18.0)
[2020-06-17 13:21] LABS: Arterial Blood Gas PEEP 12 cmH2O; Arterial Blood Gas Tidal Volume 450 ml; Arterial Blood Gas Vent Mode CMV; Arterial Blood Gas Ventilator rate 26 /MIN; Device VENTILATOR; Modified Allen's Test Pass; PCO2 ABG 64.7 mmHg (35.0-45.0); Site Drawn LEFT RADIAL; pH ABG 7.289 (7.350-7.450)
--- NOTE | 2020-06-17 13:55 | WPDINTPN ---
Progress Note: A&P Assessment and Plan (1) Acute hypoxemic respiratory failure: Code(s): J96.01 - Acute respiratory failure with hypoxia Status: Acute Assessment and Plan: Acute hypoxemic respiratory failure likely related COVID-19 pneumonia -patient presented the hospital on 06/03/2019 and was intubated on 06/05/2019 after failing BiPAP and high-flow therapy -on 06/16/2020 early hours, patient decompensated, desaturated. Peep was increased to 16 and FiO2 was increased to 100%. Patient started on Flolan (06/16). Placed back on Nimbex for neuromuscular blockade for vent synchrony. -low tidal volume strategy for ARDS physiology, allowing permissive hypercapnia will maintain pH > 7.25 -ABGs reviewed -patient was prone on, 06/15, 06/16. Will prone patient again today Continue sedation with fentanyl and Versed, Nimbex for neuromuscular blockade - continue bronchodilators (2) COVID-19: Code(s): U07.1 - COVID-19 Status: Acute Assessment and Plan: COVID-19 -results positive 06/03/2020 - s/p dexamethasone (initiated on 06/04/2020) -not a candidate for Remdesivir due to acute on chronic renal failure on admission -received a unit of convalescent plasma 06/05 -continue droplet, airborne and contact isolation/precautions -monitor inflammatory markers and trend (3) Acute on chronic renal insufficiency: Code(s): N28.9 - Disorder of kidney and ureter, unspecified; N18.9 - Chronic kidney disease, unspecified Status: Acute Assessment and Plan: Acute on chronic kidney disease likely related to hypertension, prerenal, COVID-19 -nephrology following the patient -renal ultrasound was unremarkable -creatinine decreasing, Good UO, pt has h/o CKD -hyperkalemia has resolved -continue free water free water flushes for hyperchloremia and hypernatremia -off p.o. bicarb now (4) Hypotension: Code(s): I95.9 - Hypotension, unspecified Status: Acute Assessment and Plan: Likely secondary to sedation and positive pressure ventilation. blood pressures improved -leukocytosis, afebrile, hypotension -will obtain lactic acid -panculture -patient develops fevers will start him on antibiotics (5) Dietary counseling and surveillance: Code(s): Z71.3 - Dietary counseling and surveillance Status: Acute Assessment and Plan: tolerating tube feeds P.r.n. MiraLax and Dulcolax added for constipation Stress ulcer prophylaxis: Protonix (6) DVT prophylaxis: Code(s): Z29.9 - Encounter for prophylactic measures, unspecified Status: Acute Assessment and Plan: Lovenox 40 mg SQ q.12 hours Additional Plan Discussed with Carrie, . Updated her with patient's change in condition. I answered all questions. She is aware that patient is requiring significant amount of ventilatory support, is on Flolan and a neuromuscular blockade with Nimbex. Will keep her posted Code status: Full code Critical care time spent: 34 minutes Due to a high probability of clinically significant, life threatening deterioration, the patient required my highest level of preparedness to intervene emergently and I personally spent this critical care time directly and personally managing the patient. This critical care time included obtaining a history; examining the patient; pulse oximetry; ordering and review of studies; arranging urgent treatment with development of a management plan; evaluation of patient's response to treatment; frequent reassessment; and discussions with other providers. It was exclusive of separately billable procedures and treating other patients and teaching time. Please see Assessment and Plan section and the rest of the note for further information on patient assessment and treatment Subjective Date/time seen: 06/17/20 13:55 Interval history: 60-year-old male with acute respiratory failure and renal failure with COVID pneumonia. 06/05 intubated
--- NOTE | 2020-06-17 13:57 | PC.NURSE ---
1358- REVIEWED BLOOD GAS WITH DR. CORTES, continue to monitor
--- NOTE | 2020-06-17 14:00 | P.PNNP_ITS ---
Progress Note: A&P Assessment and Plan (1) SUPA (acute kidney injury): Code(s): N17.9 - Acute kidney failure, unspecified Status: Acute Assessment and Plan: * Acute kidney injury * Creatinine was 1.4 then tootie to around 2.0. In the last couple of days it has gradually risen. * Still making a large amount of urine. * Renal ultrasound is okay * Urine electrolytes are pre renal. * presumably due to acute illness and COVID-19 and possibly some some 3rd spacing. * Continue supportive care. * Nonoliguric renal failure. Creatinine continues to rise slowly. He may end up needing renal replacement therapy down the line. Discussed with Dr. Ariza (2) Stage 3a chronic kidney disease: Code(s): N18.31 - Chronic kidney disease, stage 3a Status: Chronic Assessment and Plan: * baseline creatinine runs around 1.5mg/dl * this is likely secondary to hypertension (3) Acute hypoxemic respiratory failure: Code(s): J96.01 - Acute respiratory failure with hypoxia Status: Acute Assessment and Plan: * chest x-ray shows findings consistent with COVID-19 and volume overload * currently intubated and on mechanical ventilation * On Flolan and Nimbex. * in prone position (4) COVID-19: Code(s): U07.1 - COVID-19 Status: Acute Assessment and Plan: * on dexamethasone since 06/04/20 * not a candidate for Remdesivir due to acute on chronic renal failure * s/p convalescent plasma 06/05/20 * continue droplet/airborne/contact isolation + precautions (5) Hypernatremia: Code(s): E87.0 - Hyperosmolality and hypernatremia Status: Acute Assessment and Plan: * due to free water deficit * Sodium is wandering in the high 140s. * He is getting tube eating flushes of free water. * I hesitate to give D5 W because of the lung issues. * His sodium is stable. Even though it is a little bit high. Will continue to watch this. (6) Hypotension: Code(s): I95.9 - Hypotension, unspecified Status: Acute Assessment and Plan: * Off and on the Levophed. * due to sedation and need for positive pressure ventilation (7) Anemia: Code(s): D64.9 - Anemia, unspecified Status: Acute Assessment and Plan: * mild at this time * probably related to acute illness, SUPA, and CKD * No need for Epogen * follow trend of H/H (8) Hypercalcemia: Code(s): E83.52 - Hypercalcemia Status: Acute Assessment and Plan: Calcium high but a little better. Possibly due to bed rest. PTH is low. He received pamidronate yesterday. Subjective Date/time seen: 06/17/20 14:00 Interval history: Patient is sedated and intubated. In the prone position On the ventilator. Still on high amounts of oxygen. Review of Systems Review of Systems: ROS unobtainable: Yes unobtainable due to medical condition Exam Narrative: Exam Narrative: General: WD/WN male intubated/sedated/paralyzed and on ventilator in the Prone position Heart: Regular rhythm. Rate right at 100; no rub Lungs: coarse breath sounds bilaterally Abdomen: soft, nontender, nondistended, positive bowel sounds Extremities: no edema Skin: No rash Objective Data Vital Signs Vital Signs: Vital Signs - 24 hr 06/16/20 14:40 06/16/20 14:50 06/16/20 16:00 Temperature
--- NOTE | 2020-06-17 14:00 | PM.PNNEP ---
Progress Note: A&P Assessment and Plan (1) SUPA (acute kidney injury): Code(s): N17.9 - Acute kidney failure, unspecified Status: Acute Assessment and Plan: Acute kidney injury Creatinine was 1.4 then tootie to around 2.0. In the last couple of days it has gradually risen. Still making a large amount of urine. Renal ultrasound is okay Urine electrolytes are pre renal. presumably due to acute illness and COVID-19 and possibly some some 3rd spacing. Continue supportive care. Nonoliguric renal failure. Creatinine continues to rise slowly. He may end up needing renal replacement therapy down the line. Discussed with Dr. Ariza (2) Stage 3a chronic kidney disease: Code(s): N18.31 - Chronic kidney disease, stage 3a Status: Chronic Assessment and Plan: baseline creatinine runs around 1.5mg/dl this is likely secondary to hypertension (3) Acute hypoxemic respiratory failure: Code(s): J96.01 - Acute respiratory failure with hypoxia Status: Acute Assessment and Plan: chest x-ray shows findings consistent with COVID-19 and volume overload currently intubated and on mechanical ventilation On Flolan and Nimbex. in prone position (4) COVID-19: Code(s): U07.1 - COVID-19 Status: Acute Assessment and Plan: on dexamethasone since 06/04/20 not a candidate for Remdesivir due to acute on chronic renal failure s/p convalescent plasma 06/05/20 continue droplet/airborne/contact isolation + precautions (5) Hypernatremia: Code(s): E87.0 - Hyperosmolality and hypernatremia Status: Acute Assessment and Plan: due to free water deficit Sodium is wandering in the high 140s. He is getting tube eating flushes of free water. I hesitate to give D5 W because of the lung issues. His sodium is stable. Even though it is a little bit high. Will continue to watch this. (6) Hypotension: Code(s): I95.9 - Hypotension, unspecified Status: Acute Assessment and Plan: Off and on the Levophed. due to sedation and need for positive pressure ventilation (7) Anemia: Code(s): D64.9 - Anemia, unspecified Status: Acute Assessment and Plan: mild at this time probably related to acute illness, SUPA, and CKD No need for Epogen follow trend of H/H (8) Hypercalcemia: Code(s): E83.52 - Hypercalcemia Status: Acute Assessment and Plan: Calcium high but a little better. Possibly due to bed rest. PTH is low. He received pamidronate yesterday. Subjective Date/time seen: 06/17/20 14:00 Interval history: Patient is sedated and intubated. In the prone position On the ventilator. Still on high amounts of oxygen. Review of Systems Review of Systems: ROS unobtainable: Yes unobtainable due to medical condition Exam Narrative: Exam Narrative: General: WD/WN male intubated/sedated/paralyzed and on ventilator in the Prone position Heart: Regular rhythm. Rate right at 100; no rub Lungs: coarse breath sounds bilaterally Abdomen: soft, nontender, nondistended, positive bowel sounds Extremities: no edema Skin: No rash Objective Data Vital Signs Vital Signs: Vital Signs - 24 hr 06/16/20 14:40 06/16/20 14:50 06/16/20 16:00 Temperature 36.3 C L Pulse Rate 68 78 67 Respiratory Rate 24 H 24 H Blood Pressure 100/72 Pulse Oximetry 97 94 94 06/16/20 16:32 06/16/20 17:07 06/16/20 18:00 Temperature Pulse Rate 88 65 69 Respiratory Rate 24 H 24 H Blood Pressure 87/61 L Pulse Oximetry 95 95 06/16/20 18:15 06/16/20 18:17 06/16/20 20:00 Temperature 36.6 C Pulse Rate 78 78 69 Respiratory Rate 24 H 24 H Blood Pressure 85/63 L Pulse Oximetry 94 93 96 06/16/20 20:35 06/16/20 20:50 06/16/20 22:00 Temperature Pulse Rate 68 68 71 Respiratory Rate 24 H 24 H 24 H Blood Pressure 85/63 L 77/63 L Pulse Oximetry 96
[2020-06-17 14:17] LABS: Kappa\\Lambda Light Chains 0.81 (0.26-1.65); Lambda Light Chain 85.8 mg/L (5.7-26.3)
[2020-06-17 14:56] LABS: Lactic Acid Reflex 1.8 mmol/L (0.7-2.1)
[2020-06-17] MEDS: CISATRACURIUM BESYLATE 200 MG in DEXTROSE 5% 80 ML 17.33 ML IV CONT ×2 (17:13→22:07)
[2020-06-17] MEDS: METOCLOPRAMIDE HCL 10 MG/10 ML SOLN UDC 5 MG PO (17:16)
[2020-06-18] VITALS (62 sets, daily range): BP systolic 80–124; BP diastolic 52–88; PULSE 72–105; RESP 26; TEMP 37–38.8; O2SAT 87–96
[2020-06-18] MEDS: NOREPINEPHRINE 8 MG/D5W 250 ML 8 MG/250 ML BAG 46.88 MG IV CONT (00:14)
[2020-06-18] MEDS: METOCLOPRAMIDE HCL 10 MG/10 ML SOLN UDC 5 MG PO ×2 (01:35→05:17)
[2020-06-18 03:15] LABS: Glucose Point of Care 122 (65-105)
[2020-06-18] MEDS: CISATRACURIUM BESYLATE 200 MG in DEXTROSE 5% 80 ML 17.33 ML IV CONT ×2 (03:50→08:49)
[2020-06-18] MEDS: EPOPROSTENOL SODIUM 0.5 MG VIAL 1 MG INHALATION ×4 (03:58→21:50)
[2020-06-18 04:39] LABS: Alveolar/Arterial O2 Gradient 554.4 mmHg; Base Excess ABG -0.3 mEq/l (+/-2.0); Carboxyhemoglobin 0.3 % THb (0-2.0); Fractional Inspired Oxygen 95 %; HCO3 ABG 27.2 mEq/l (22.0-26.0); Methemoglobin ABG 0.3 %THb (0-1.5); Oxygen Content ABG 15.9 %vol (16.0-22.0); Oxygen Saturation ABG 89.8 % (95.0-100.0); Oxyhemoglobin 89.8 % THb (90.0-100.0); PCO2 ABG 57.7 mmHg (35.0-45.0); PO2 ABG 64.5 mmHg (80.0-100.0); PO2 FiO2 Ratio Arterial Blood 0.68 %; Reduced Hemoglobin 9.6 %THb (0-5.0); Total Hemoglobin 12.6 g/dL (12.0-18.0)
[2020-06-18 04:40] LABS: Site Drawn RIGHT RADIAL
[2020-06-18 04:41] LABS: Device VENTILATOR; Modified Allen's Test Unable to perform; pH ABG 7.291 (7.350-7.450)
[2020-06-18 04:42] LABS: Arterial Blood Gas PEEP 12 cmH2O; Arterial Blood Gas Tidal Volume 450 ml; Arterial Blood Gas Vent Mode ASSIST CONTROL; Arterial Blood Gas Ventilator rate 26 /MIN
[2020-06-18] MEDS: NOREPINEPHRINE 8 MG/D5W 250 ML 8 MG/250 ML BAG 50.63 MG IV CONT ×2 (05:14→10:39)
[2020-06-18] MEDS: CENTRAL LINE FLUSH 10 ML IV PUSH ×3 (05:16→22:17)
[2020-06-18] MEDS: ACETAMINOPHEN 325 MG TABLET 650 MG PO ×2 (05:21→11:35)
[2020-06-18 06:22] LABS: Hemoglobin 11.5 g/dL (14.0-18.0); Immature Platelet Fraction Pct 9.8 % (0.9-11.2); Mean Corpuscular HGB Conc 30.3 g/dl (32-36); Mean Corpuscular Hemoglobin 30.9 pg (26-34); Mean Corpuscular Volume 102.2 fl (80-100); Mean Platelet Volume 12.8 fl (7.4-10.4); Platelet Count Result 225 k/mm3 (150-375); Red Blood Count 3.72 M/mm3 (4.6-6.20); Red Cell Distribution Width 14.1 % (11.5-14.5); White Blood Count 16.9 K/mm3 (4.5-10.0)
[2020-06-18 06:33] LABS: D Dimer 3.91 ug/mL (<0.48)
[2020-06-18] MEDS: AMIODARONE 360 MG/D5W 200 ML 360 MG/200 ML BAG 16.67 MG IV CONT ×2 (07:26→17:00)
[2020-06-18 07:56] LABS: Alanine Aminotransferase 39 U/L (4-50); Albumin Level 2.8 g/dL (3.5-5.1); Alkaline Phosphatase 118 U/L (38-126); Anion Gap 8 mmol/L (8-16); Aspartate Amino Transferase 65 U/L (17-59); Bilirubin,Total 1.9 mg/dL (0.2-1.3); Calcium 10.3 mg/dL (8.4-10.2); Carbon Dioxide 31 mmol/L (22-30); Chloride 104 mmol/L (98-107); Estimated CRCL calculation 29 ml/min; Estimated Glomerular Filt Rate 20; Glucose 165 mg/dL (75-110); Lactate Dehydrogenase 621 U/L (313-618); Lipase 51 U/L (23-300); Magnesium 2.9 mg/dL (1.6-2.3); Phosphorus 7.1 mg/dL (2.5-4.5); Potassium 4.7 mmol/L (3.4-5.0); Sodium 143 mmol/L (137-145)
[2020-06-18] MEDS: ENOXAPARIN 40 MG/0.4 ML SYRINGE SUB-Q ×2 (08:55→19:48)
[2020-06-18] MEDS: PANTOPRAZOLE SODIUM IV 40 MG VIAL IV PUSH (08:55)
[2020-06-18 08:58] LABS: CRP > 45.0 mg/dL (<1.0)
[2020-06-18 09:41] LABS: Blood Urea Nitrogen 145 mg/dL (9-20)
[2020-06-18] MEDS: SODIUM CHLORIDE 0.9% IV 500 ML IV CONT (10:39)
--- NOTE | 2020-06-18 11:14 | P.PNNP_ITS ---
Progress Note: A&P Assessment and Plan (1) SUPA (acute kidney injury): Code(s): N17.9 - Acute kidney failure, unspecified Status: Acute Assessment and Plan: * Acute kidney injury * Creatinine was 1.4 then tootie to around 2.0. In the last couple of days it has gradually risen. * BUN has increased to 145 * Still making a large amount of urine. * Renal ultrasound is okay * Urine electrolytes are pre renal. * presumably due to acute illness and COVID-19 and possibly some some 3rd spacing. * Continue supportive care. * Nonoliguric renal failure. Creatinine continues to rise slowly. He may end up needing renal replacement therapy down the line. Will see how IV fluids does today. He may end up needing dialysis tomorrow. Discussed with Dr. Ariza Will try little IV fluids. (2) Stage 3a chronic kidney disease: Code(s): N18.31 - Chronic kidney disease, stage 3a Status: Chronic Assessment and Plan: * baseline creatinine runs around 1.5mg/dl * this is likely secondary to hypertension (3) Acute hypoxemic respiratory failure: Code(s): J96.01 - Acute respiratory failure with hypoxia Status: Acute Assessment and Plan: * chest x-ray shows findings consistent with COVID-19 and volume overload * currently intubated and on mechanical ventilation * On Flolan and Nimbex. (4) COVID-19: Code(s): U07.1 - COVID-19 Status: Acute Assessment and Plan: * on dexamethasone since 06/04/20 * not a candidate for Remdesivir due to acute on chronic renal failure * s/p convalescent plasma 06/05/20 * continue droplet/airborne/contact isolation + precautions (5) Hypernatremia: Code(s): E87.0 - Hyperosmolality and hypernatremia Status: Acute Assessment and Plan: * Better today. * Getting free water with tube feedings (6) Hypotension: Code(s): I95.9 - Hypotension, unspecified Status: Acute Assessment and Plan: * Off and on the Levophed. * due to sedation and need for positive pressure ventilation (7) Anemia: Code(s): D64.9 - Anemia, unspecified Status: Acute Assessment and Plan: * mild at this time * probably related to acute illness, SUPA, and CKD * No need for Epogen * follow trend of H/H (8) Hypercalcemia: Code(s): E83.52 - Hypercalcemia Status: Acute Assessment and Plan: Calcium gradually better. Possibly due to bed rest. PTH is low. He received pamidronate Subjective Date/time seen: 06/18/20 11:14 Interval history: Patient is sedated and intubated. On the ventilator. Still on high amounts of oxygen. Review of Systems Review of Systems: ROS unobtainable: Yes unobtainable due to medical condition Exam Narrative: Exam Narrative: General: WD/WN male intubated/sedated/paralyzed and on ventilator in the Prone position Heart: Regular rhythm. Rate right at 100; no rub Lungs: coarse breath sounds bilaterally Abdomen: soft, nontender, nondistended, positive bowel sounds Extremities: no edema or cyanosis Skin: No rash or subcu nodules Objective Data Vital Signs Vital Signs: Vital Signs - 24 hr 06/17/20 12:00 06/17/20 13:02 06/17/20 13:04 Temperature 38.3 C H Pulse Rate 94 95 94 Respiratory Rate 26 H 26 H Blood Pressure 91/58 L
--- NOTE | 2020-06-18 11:14 | PM.PNNEP ---
Progress Note: A&P Assessment and Plan (1) SUPA (acute kidney injury): Code(s): N17.9 - Acute kidney failure, unspecified Status: Acute Assessment and Plan: Acute kidney injury Creatinine was 1.4 then tootie to around 2.0. In the last couple of days it has gradually risen. BUN has increased to 145 Still making a large amount of urine. Renal ultrasound is okay Urine electrolytes are pre renal. presumably due to acute illness and COVID-19 and possibly some some 3rd spacing. Continue supportive care. Nonoliguric renal failure. Creatinine continues to rise slowly. He may end up needing renal replacement therapy down the line. Will see how IV fluids does today. He may end up needing dialysis tomorrow. Discussed with Dr. Ariza Will try little IV fluids. (2) Stage 3a chronic kidney disease: Code(s): N18.31 - Chronic kidney disease, stage 3a Status: Chronic Assessment and Plan: baseline creatinine runs around 1.5mg/dl this is likely secondary to hypertension (3) Acute hypoxemic respiratory failure: Code(s): J96.01 - Acute respiratory failure with hypoxia Status: Acute Assessment and Plan: chest x-ray shows findings consistent with COVID-19 and volume overload currently intubated and on mechanical ventilation On Flolan and Nimbex. (4) COVID-19: Code(s): U07.1 - COVID-19 Status: Acute Assessment and Plan: on dexamethasone since 06/04/20 not a candidate for Remdesivir due to acute on chronic renal failure s/p convalescent plasma 06/05/20 continue droplet/airborne/contact isolation + precautions (5) Hypernatremia: Code(s): E87.0 - Hyperosmolality and hypernatremia Status: Acute Assessment and Plan: Better today. Getting free water with tube feedings (6) Hypotension: Code(s): I95.9 - Hypotension, unspecified Status: Acute Assessment and Plan: Off and on the Levophed. due to sedation and need for positive pressure ventilation (7) Anemia: Code(s): D64.9 - Anemia, unspecified Status: Acute Assessment and Plan: mild at this time probably related to acute illness, SUPA, and CKD No need for Epogen follow trend of H/H (8) Hypercalcemia: Code(s): E83.52 - Hypercalcemia Status: Acute Assessment and Plan: Calcium gradually better. Possibly due to bed rest. PTH is low. He received pamidronate Subjective Date/time seen: 06/18/20 11:14 Interval history: Patient is sedated and intubated. On the ventilator. Still on high amounts of oxygen. Review of Systems Review of Systems: ROS unobtainable: Yes unobtainable due to medical condition Exam Narrative: Exam Narrative: General: WD/WN male intubated/sedated/paralyzed and on ventilator in the Prone position Heart: Regular rhythm. Rate right at 100; no rub Lungs: coarse breath sounds bilaterally Abdomen: soft, nontender, nondistended, positive bowel sounds Extremities: no edema or cyanosis Skin: No rash or subcu nodules Objective Data Vital Signs Vital Signs: Vital Signs - 24 hr 06/17/20 12:00 06/17/20 13:02 06/17/20 13:04 Temperature 38.3 C H Pulse Rate 94 95 94 Respiratory Rate 26 H 26 H Blood Pressure 91/58 L Pulse Oximetry 96 97 97 06/17/20 14:00 06/17/20 14:47 06/17/20 15:17 Temperature Pulse Rate 95 96 96 Respiratory Rate 24 H 26 H Blood Pressure 92/57 L Pulse Oximetry 96 96 95 06/17/20 15:34 06/17/20 15:36 06/17/20 16:00 Temperature 38.4 C H Pulse Rate 97 97 97 Respiratory Rate 26 H 26 H Blood Pressure 104/65 104/65 85/59 L Pulse Oximetry 96 06/17/20 17:13 06/17/20 17:30 06/17/20 17:35 Temperature Pulse Rate 97 94 98 Respiratory Rate 26 H 25 H Blood Pressure 91/61 L 96/54 L Pulse Oximetry 93 06/17/20 18:00 06/17/20 19:41 06/17/20 19:50 Temperature 38.3 C H 37.4 C Pulse Rate 94 96 96
[2020-06-18] MEDS: METOCLOPRAMIDE HCL 10 MG/10 ML SOLN UDC PO (11:41)
[2020-06-18 11:50] LABS: Glucose Point of Care 136 (65-105)
[2020-06-18] MEDS: ALBUMIN HUMAN 25% 12.5 GM/50ML 50 ML IVPB ×3 (11:59→23:51)
[2020-06-18] MEDS: FENTANYL 2,500MCG/NS250ML(*CRX 2,500 MCG/250 ML BAG 12.5 MCG IV CONT (11:59)
[2020-06-18] MEDS: CISATRACURIUM BESYLATE 200 MG in DEXTROSE 5% 80 ML 13.86 ML IV CONT ×2 (14:28→20:16)
--- NOTE | 2020-06-18 14:43 | WPDINTPN ---
Progress Note: A&P Assessment and Plan (1) Shock: Code(s): R57.9 - Shock, unspecified Status: Acute Assessment and Plan: Likely secondary to infection, sedation, positive pressure ventilation -leukocytosis worsening, patient febrile -remains on Levophed will maintain mean arterial pressures greater than 65 mmHg -lactic acid is normal -arce cultured and await culture results -started patient on vancomycin and cefepime -will have Infectious Disease follow the patient (2) Acute hypoxemic respiratory failure: Code(s): J96.01 - Acute respiratory failure with hypoxia Status: Acute Assessment and Plan: Acute hypoxemic respiratory failure likely related COVID-19 pneumonia -patient presented the hospital on 06/03/2019 and was intubated on 06/05/2019 after failing BiPAP and high-flow therapy -on 06/16/2020 early hours, patient decompensated, desaturated. -patient on low tidal volume strategy, allowing permissive hypercapnia. Maintain pH > 7.20 -continue Flolan, - Nimbex for ventilator synchrony - Sedated with fentanyl and Versed -patient was in prone position for approximately 14 a was yesterday - continue bronchodilators (3) COVID-19: Code(s): U07.1 - COVID-19 Status: Acute Assessment and Plan: COVID-19 -results positive 06/03/2020 - s/p dexamethasone (initiated on 06/04/2020) -not a candidate for Remdesivir due to acute on chronic renal failure on admission -received a unit of convalescent plasma 06/05 -continue droplet, airborne and contact isolation/precautions -monitor inflammatory markers and trend (4) Acute on chronic renal insufficiency: Code(s): N28.9 - Disorder of kidney and ureter, unspecified; N18.9 - Chronic kidney disease, unspecified Status: Acute Assessment and Plan: Acute on chronic kidney disease likely related to hypertension, prerenal, COVID-19, history of chronic kidney disease -nephrology following the patient -renal ultrasound was unremarkable -creatinine worsening, shock, third-spacing -hyperkalemia has resolved -continue free water free water flushes for hyperchloremia and hypernatremia -off p.o. bicarb now -discussed with Nephrology, place patient on IV fluids for 1000 mL and albumin (5) Dietary counseling and surveillance: Code(s): Z71.3 - Dietary counseling and surveillance Status: Acute Assessment and Plan: Patient with high tube feed residuals, will start low-dose Reglan P.r.n. MiraLax and Dulcolax added for constipation Stress ulcer prophylaxis: Protonix (6) DVT prophylaxis: Code(s): Z29.9 - Encounter for prophylactic measures, unspecified Status: Acute Assessment and Plan: Lovenox 40 mg SQ q.12 hours Additional Plan Discussed with Carrie, . Updated her with patient's change in condition. I answered all questions. She is aware that patient is requiring significant amount of ventilatory support, is on Flolan and a neuromuscular blockade with Nimbex. and son are also aware that patient has been febrile, WBC count trending up. Patient has been started on antibiotics, cultures are pending infectious disease team will be seeing the patient. She is also aware that patient's kidney functions have worsened, I did tell her that patient may require dialysis in the next day or so Code status: Full code Critical care time spent: 33 minutes Due to a high probability of clinically significant, life threatening deterioration, the patient required my highest level of preparedness to intervene emergently and I personally spent this critical care time directly and personally managing the patient. This critical care time included obtaining a history; examining the patient; pulse oximetry; ordering and review of studies; arranging urgent treatment with development of a management plan; evaluation of patient's response to treatment; frequent reassessment; and discussions with other
[2020-06-18] MEDS: NOREPINEPHRINE 8 MG/D5W 250 ML 8 MG/250 ML BAG 48.75 MG IV CONT (15:17)
[2020-06-18] MEDS: SODIUM CHLORIDE 0.9% IV 1,000 ML 75 ML IV CONT (16:55)
[2020-06-18] MEDS: METOCLOPRAMIDE HCL INJ 10 MG/2 ML VIAL 5 MG IV PUSH (17:05)
[2020-06-18 17:17] LABS: Alveolar/Arterial O2 Gradient 553.3 mmHg; Base Excess ABG -3.2 mEq/l (+/-2.0); Carboxyhemoglobin 0.1 % THb (0-2.0); Fractional Inspired Oxygen 95 %; HCO3 ABG 24.8 mEq/l (22.0-26.0); Methemoglobin ABG 0.4 %THb (0-1.5); Oxygen Content ABG 18.1 %vol (16.0-22.0); Oxygen Saturation ABG 89.8 % (95.0-100.0); Oxyhemoglobin 90.7 % THb (90.0-100.0); PCO2 ABG 56.9 mmHg (35.0-45.0); PO2 ABG 66.4 mmHg (80.0-100.0); Reduced Hemoglobin 8.8 %THb (0-5.0); Total Hemoglobin 14.2 g/dL (12.0-18.0)
[2020-06-18 17:18] LABS: Device VENTILATOR; Modified Allen's Test Pass; Site Drawn LEFT RADIAL; pH ABG 7.257 (7.350-7.450)
[2020-06-18 17:19] LABS: Arterial Blood Gas PEEP 12 cmH2O; Arterial Blood Gas Tidal Volume 450 ml; Arterial Blood Gas Vent Mode CMV; Arterial Blood Gas Ventilator rate 26 /MIN
[2020-06-18] MEDS: METOCLOPRAMIDE HCL INJ 10 MG/2 ML VIAL IV PUSH ×2 (18:54→23:51)
[2020-06-18 19:01] LABS: Glucose Point of Care 119 (65-105)
[2020-06-18] MEDS: NOREPINEPHRINE 8 MG/D5W 250 ML 8 MG/250 ML BAG 39.38 MG IV CONT (20:17)
[2020-06-19] VITALS (54 sets, daily range): BP systolic 95–199; BP diastolic 52–70; PULSE 70–86; RESP 24–26; TEMP 36.1–37.4; O2SAT 84–95
[2020-06-19] MEDS: CISATRACURIUM BESYLATE 200 MG in DEXTROSE 5% 80 ML 13.86 ML IV CONT ×3 (02:14→19:49)
[2020-06-19] MEDS: EPOPROSTENOL SODIUM 0.5 MG VIAL 1 MG INHALATION ×4 (04:09→22:27)
[2020-06-19] MEDS: NOREPINEPHRINE 8 MG/D5W 250 ML 8 MG/250 ML BAG 20.63 MG IV CONT (04:28)
[2020-06-19] MEDS: AMIODARONE 360 MG/D5W 200 ML 360 MG/200 ML BAG 16.67 MG IV CONT ×2 (04:29→15:27)
[2020-06-19 05:21] LABS: Hematocrit 31.3 % (42.0-52.0); Hemoglobin 9.6 g/dL (14.0-18.0); Mean Corpuscular HGB Conc 30.7 g/dl (32-36); Mean Corpuscular Hemoglobin 30.5 pg (26-34); Mean Corpuscular Volume 99.4 fl (80-100); Mean Platelet Volume 12.3 fl (7.4-10.4); Platelet Count Result 164 k/mm3 (150-375); Red Blood Count 3.15 M/mm3 (4.6-6.20); Red Cell Distribution Width 14.2 % (11.5-14.5); White Blood Count 8.1 K/mm3 (4.5-10.0)
[2020-06-19] MEDS: ALBUMIN HUMAN 25% 12.5 GM/50ML 50 ML IVPB ×4 (05:24→23:42)
[2020-06-19] MEDS: METOCLOPRAMIDE HCL INJ 10 MG/2 ML VIAL IV PUSH ×4 (05:25→23:42)
[2020-06-19] MEDS: CENTRAL LINE FLUSH 10 ML IV PUSH ×3 (05:25→20:28)
[2020-06-19 05:36] LABS: Lactic Acid Reflex 1.4 mmol/L (0.7-2.1)
[2020-06-19 05:36] LABS: Alveolar/Arterial O2 Gradient 510.8 mmHg; Base Excess ABG -1.7 mEq/l (+/-2.0); Carboxyhemoglobin 0.3 % THb (0-2.0); Fractional Inspired Oxygen 90 %; HCO3 ABG 25.2 mEq/l (22.0-26.0); Methemoglobin ABG 0.3 %THb (0-1.5); Oxygen Content ABG 14.5 %vol (16.0-22.0); Oxygen Saturation ABG 93.8 % (95.0-100.0); Oxyhemoglobin 93.4 % THb (90.0-100.0); PCO2 ABG 52.8 mmHg (35.0-45.0); PO2 ABG 76.8 mmHg (80.0-100.0); PO2 FiO2 Ratio Arterial Blood 0.85 %; pH ABG 7.297 (7.350-7.450)
[2020-06-19 05:37] LABS: Device VENTILATOR; Modified Allen's Test Unable to perform; Site Drawn RIGHT RADIAL
[2020-06-19 05:38] LABS: Arterial Blood Gas PEEP 12 cmH2O; Arterial Blood Gas Tidal Volume 450 ml; Arterial Blood Gas Vent Mode ASSIST CONTROL; Arterial Blood Gas Ventilator rate 26 /MIN
[2020-06-19 06:04] LABS: Alanine Aminotransferase 41 U/L (4-50); Albumin Level 2.6 g/dL (3.5-5.1); Alkaline Phosphatase 84 U/L (38-126); Anion Gap 10 mmol/L (8-16); Aspartate Amino Transferase 58 U/L (17-59); Bilirubin,Total 1.4 mg/dL (0.2-1.3); Calcium 8.7 mg/dL (8.4-10.2); Carbon Dioxide 28 mmol/L (22-30); Chloride 102 mmol/L (98-107); Estimated CRCL calculation 24 ml/min; Estimated Glomerular Filt Rate 16; Glucose 131 mg/dL (75-110); Magnesium 2.9 mg/dL (1.6-2.3); Potassium 4.3 mmol/L (3.4-5.0); Sodium 140 mmol/L (137-145)
[2020-06-19 06:05] LABS: Blood Urea Nitrogen 153 mg/dL (9-20)
[2020-06-19] MEDS: FENTANYL 2,500MCG/NS250ML(*CRX 2,500 MCG/250 ML BAG 12.5 MCG IV CONT (08:14)
[2020-06-19] MEDS: ENOXAPARIN 40 MG/0.4 ML SYRINGE SUB-Q ×2 (08:21→20:28)
[2020-06-19] MEDS: PANTOPRAZOLE SODIUM IV 40 MG VIAL IV PUSH (08:21)
[2020-06-19 09:35] LABS: Partial Thromboplastin Time 39.4 SECONDS (22.3-36.8)
[2020-06-19 09:36] LABS: INR 1.4; Prothrombin Time 17.7 Seconds (11.1-14.7)
[2020-06-19 12:16] LABS: Creatine Kinase 431 U/L (55-170)
[2020-06-19 12:30] LABS: Glucose Point of Care 107 (65-105)
--- NOTE | 2020-06-19 13:11 | P.PNNP_ITS ---
Progress Note: A&P Assessment and Plan (1) SUPA (acute kidney injury): Code(s): N17.9 - Acute kidney failure, unspecified Status: Acute Assessment and Plan: * Acute kidney injury * Creatinine was 1.4 then tootie to around 2.0. In the last couple of days it has gradually risen. * BUN has increased a little more to 153 * I believe that the fluid bolus improved his blood pressure and also decrease the rate of rise of the BUN. His creatinine tootie a little bit as well. * He is probably intravascularly dry, however we do not want to overdo the fluid input because of his borderline lung function. * Long discussion with Dr. Ariza. Will do a test for lung water and decide whether to give more fluid or not , based on fluid responsiveness. If the test shows responsive this Will give small amount of fluid after that. * Still making a large amount of urine. * Renal ultrasound is okay * Urine electrolytes are pre renal. * presumably due to acute illness and COVID-19 and possibly some some 3rd spacing. * Continue supportive care. * the patient is very close to needing dialysis. Will place a temporary Rob today in case he needs it this evening. Discussed with Dr. Ariza Discussed at length with Mrs. Heath as well. 23 minutes were spent in discussions with family and physicians Apart from clinical active (2) Stage 3a chronic kidney disease: Code(s): N18.31 - Chronic kidney disease, stage 3a Status: Chronic Assessment and Plan: * baseline creatinine runs around 1.5mg/dl * this is likely secondary to hypertension (3) Acute hypoxemic respiratory failure: Code(s): J96.01 - Acute respiratory failure with hypoxia Status: Acute Assessment and Plan: * chest x-ray shows findings consistent with COVID-19 and volume overload * currently intubated and on mechanical ventilation * On Flolan and Nimbex. (4) COVID-19: Code(s): U07.1 - COVID-19 Status: Acute Assessment and Plan: * finished Dexamethasone * not a candidate for Remdesivir due to acute on chronic renal failure * s/p convalescent plasma 06/05/20 * continue droplet/airborne/contact isolation + precautions (5) Hypernatremia: Code(s): E87.0 - Hyperosmolality and hypernatremia Status: Acute Assessment and Plan: * Better today. * Getting free water with tube feedings (6) Hypotension: Code(s): I95.9 - Hypotension, unspecified Status: Deleted Assessment and Plan: * Off and on the Levophed. * due to sedation and need for positive pressure ventilation (7) Anemia: Code(s): D64.9 - Anemia, unspecified Status: Acute Assessment and Plan: * mild at this time * probably related to acute illness, SUPA, and CKD * No need for Epogen * follow trend of H/H (8) Hypercalcemia: Code(s): E83.52 - Hypercalcemia Status: Acute Assessment and Plan: Calcium is now normal Possibly due to bed rest. PTH is low. He received pamidronate Subjective Date/time seen: 06/19/20 13:11 Interval history: Patient is sedated and intubated. On the ventilator. He had a small fluid bolus yesterday and his blood pressure improved. On Levophed 8 mics, improved from yesterday Exam Narrative: Exam Narrative: General: WD/WN male intubated/sedated/paralyzed and on ventilator in the Supine position at the moment Heart: Regular rhythm. Rate
--- NOTE | 2020-06-19 13:11 | PM.PNNEP ---
Progress Note: A&P Assessment and Plan (1) SUPA (acute kidney injury): Code(s): N17.9 - Acute kidney failure, unspecified Status: Acute Assessment and Plan: Acute kidney injury Creatinine was 1.4 then tootie to around 2.0. In the last couple of days it has gradually risen. BUN has increased a little more to 153 I believe that the fluid bolus improved his blood pressure and also decrease the rate of rise of the BUN. His creatinine tootie a little bit as well. He is probably intravascularly dry, however we do not want to overdo the fluid input because of his borderline lung function. Long discussion with Dr. Ariza. Will do a test for lung water and decide whether to give more fluid or not , based on fluid responsiveness. If the test shows responsive this Will give small amount of fluid after that. Still making a large amount of urine. Renal ultrasound is okay Urine electrolytes are pre renal. presumably due to acute illness and COVID-19 and possibly some some 3rd spacing. Continue supportive care. the patient is very close to needing dialysis. Will place a temporary Rob today in case he needs it this evening. Discussed with Dr. Ariza Discussed at length with Mrs. Heath as well. 23 minutes were spent in discussions with family and physicians Apart from clinical active (2) Stage 3a chronic kidney disease: Code(s): N18.31 - Chronic kidney disease, stage 3a Status: Chronic Assessment and Plan: baseline creatinine runs around 1.5mg/dl this is likely secondary to hypertension (3) Acute hypoxemic respiratory failure: Code(s): J96.01 - Acute respiratory failure with hypoxia Status: Acute Assessment and Plan: chest x-ray shows findings consistent with COVID-19 and volume overload currently intubated and on mechanical ventilation On Flolan and Nimbex. (4) COVID-19: Code(s): U07.1 - COVID-19 Status: Acute Assessment and Plan: finished Dexamethasone not a candidate for Remdesivir due to acute on chronic renal failure s/p convalescent plasma 06/05/20 continue droplet/airborne/contact isolation + precautions (5) Hypernatremia: Code(s): E87.0 - Hyperosmolality and hypernatremia Status: Acute Assessment and Plan: Better today. Getting free water with tube feedings (6) Hypotension: Code(s): I95.9 - Hypotension, unspecified Status: Deleted Assessment and Plan: Off and on the Levophed. due to sedation and need for positive pressure ventilation (7) Anemia: Code(s): D64.9 - Anemia, unspecified Status: Acute Assessment and Plan: mild at this time probably related to acute illness, SUPA, and CKD No need for Epogen follow trend of H/H (8) Hypercalcemia: Code(s): E83.52 - Hypercalcemia Status: Acute Assessment and Plan: Calcium is now normal Possibly due to bed rest. PTH is low. He received pamidronate Subjective Date/time seen: 06/19/20 13:11 Interval history: Patient is sedated and intubated. On the ventilator. He had a small fluid bolus yesterday and his blood pressure improved. On Levophed 8 mics, improved from yesterday Exam Narrative: Exam Narrative: General: WD/WN male intubated/sedated/paralyzed and on ventilator in the Supine position at the moment Heart: Regular rhythm. Rate right at 100; no rub Lungs: coarse breath sounds bilaterally Abdomen: soft, nontender, nondistended, positive bowel sounds Extremities: no edema or cyanosis Skin: No rash or subcu nodules Objective Data Vital Signs Vital Signs: Vital Signs - 24 hr 06/18/20 13:49 06/18/20 14:00 06/18/20 14:23 Temperature 38.8 C H 38.7 C H Pulse Rate 83 84 Respiratory Rate 26 H 26 H Blood Pressure 106/69 101/57 L Pulse Oximetry 93 06/18/20 14:28 06/18/20 14:31 06/18/20 15:08 Temperature Pu
--- NOTE | 2020-06-19 14:15 | WPDINTPN ---
Progress Note: A&P Assessment and Plan (1) Shock: Code(s): R57.9 - Shock, unspecified Status: Acute Assessment and Plan: Likely secondary to infection, sedation, positive pressure ventilation -leukocytosis improved -Levophed being weaned, maintain mean arterial pressures greater than 65 mmHg -lactic acid is normal -06/17/2020: Blood and urine cultures are negative, sputum cultures pending -continue vancomycin and cefepime -will have Infectious Disease follow the patient (2) Acute hypoxemic respiratory failure: Code(s): J96.01 - Acute respiratory failure with hypoxia Status: Acute Assessment and Plan: Acute hypoxemic respiratory failure likely related COVID-19 pneumonia -patient presented the hospital on 06/03/2019 and was intubated on 06/05/2019 after failing BiPAP and high-flow therapy -on 06/16/2020 early hours, patient decompensated, desaturated. -patient on low tidal volume strategy, allowing permissive hypercapnia. Maintain pH > 7.20 -remains on 100% FiO2, peep of 12 -continue Flolan, - Nimbex for ventilator synchrony - Sedated with fentanyl and Versed -will prone patient again today - continue bronchodilators (3) COVID-19: Code(s): U07.1 - COVID-19 Status: Acute Assessment and Plan: COVID-19 -results positive 06/03/2020 - s/p dexamethasone (initiated on 06/04/2020) -not a candidate for Remdesivir due to acute on chronic renal failure on admission -received a unit of convalescent plasma 06/05 -continue droplet, airborne and contact isolation/precautions -monitor inflammatory markers and trend (4) Acute on chronic renal insufficiency: Code(s): N28.9 - Disorder of kidney and ureter, unspecified; N18.9 - Chronic kidney disease, unspecified Status: Acute Assessment and Plan: Acute on chronic kidney disease likely related to hypertension, prerenal, COVID-19, history of chronic kidney disease -nephrology following the patient -renal ultrasound was unremarkable --hyperkalemia has resolved -hypernatremia has resolved, will cut back on free water flushes - discussed with Nephrology, BUN and creatinine worsening, noninvasive hemodynamic monitoring showed patient is fluid responsive, additional IV fluids -CK levels in the 431 -if BUN and creatinine do not improve by tomorrow start dialysis (5) Dietary counseling and surveillance: Code(s): Z71.3 - Dietary counseling and surveillance Status: Acute Assessment and Plan: Patient with high tube feed residuals, currently on hold -continue Reglan P.r.n. MiraLax and Dulcolax added for constipation Stress ulcer prophylaxis: Protonix (6) DVT prophylaxis: Code(s): Z29.9 - Encounter for prophylactic measures, unspecified Status: Acute Assessment and Plan: Lovenox 40 mg SQ q.12 hours Additional Plan Discussed with Carrie, . Updated her with patient's change in condition. I answered all questions. She is aware that patient is requiring significant amount of ventilatory support, is on Flolan and a neuromuscular blockade with Nimbex. Updated with patient's WBC count improving, patient is afebrile. Currently on antibiotic. She is also aware that patient's kidney functions have worsened, the also discussed with Nephrology, possible dialysis a.m. tomorrow, 06/20/2020 Code status: Full code Critical care time spent: 36 minutes Due to a high probability of clinically significant, life threatening deterioration, the patient required my highest level of preparedness to intervene emergently and I personally spent this critical care time directly and personally managing the patient. This critical care time included obtaining a history; examining the patient; pulse oximetry; ordering and review of studies; arranging urgent treatment with development of a management plan; evaluation of patient's response to treatment; frequent reassessment; and discussions with other p
[2020-06-19] MEDS: CISATRACURIUM BESYLATE 200 MG in DEXTROSE 5% 80 ML 17.33 ML IV CONT (15:11)
[2020-06-19] MEDS: SODIUM CHLORIDE 0.9% IV 1,000 ML 999 ML IV CONT (15:21)
[2020-06-19 16:34] LABS: Alveolar/Arterial O2 Gradient 574.7 mmHg; Base Excess ABG -3.7 mEq/l (+/-2.0); Carboxyhemoglobin 0.2 % THb (0-2.0); Fractional Inspired Oxygen 100 %; HCO3 ABG 23.4 mEq/l (22.0-26.0); Methemoglobin ABG 0.5 %THb (0-1.5); Oxygen Content ABG 14.8 %vol (16.0-22.0); Oxygen Saturation ABG 95.2 % (95.0-100.0); Oxyhemoglobin 93.9 % THb (90.0-100.0); PCO2 ABG 51.8 mmHg (35.0-45.0); PO2 ABG 86.5 mmHg (80.0-100.0); PO2 FiO2 Ratio Arterial Blood 0.87 %; Reduced Hemoglobin 5.4 %THb (0-5.0); Total Hemoglobin 11.1 g/dL (12.0-18.0)
[2020-06-19 16:35] LABS: Device VENTILATOR; Modified Allen's Test Pass; Site Drawn RIGHT RADIAL; pH ABG 7.273 (7.350-7.450)
[2020-06-19] MEDS: SODIUM CHLORIDE 0.9% IV 1,000 ML 75 ML IV CONT (16:35)
[2020-06-19 16:36] LABS: Arterial Blood Gas PEEP 12 cmH2O; Arterial Blood Gas Tidal Volume 500 ml; Arterial Blood Gas Vent Mode CMV; Arterial Blood Gas Ventilator rate 24 /MIN
--- NOTE | 2020-06-19 18:38 | WPDPROCEDUR ---
Procedures Intubation Intubation Date: 06/19/20 Intubation Time: 18:15 Consent: Obtained per RN. A pre-procedural Time-Out was completed immediately before starting the procedure and confirmed: Patient Identification, Site, Procedure, Patient Position and the Availability of Requisite Equipment: Yes Sedative: other (Patient on fentanyl and Versed infusions.) Paralytic: other (Patient already on paralytics, rocuronium.) Laryngoscope: Mcnulty Assist device used: Bougie ET tube size: 8 Tube secured depth (cm): 28 Tube secured location: lips Tube placement confirmation: visualized tube passing through cords, equal breath sounds bilaterally and no breath sounds over epigastrium Patient tolerated procedure: well Intubation complications: none Additional comments: Patient transitioning from prone to supine position and became hypoxic with concerns for cuff leak. ET tube was exchanged over bougie under direct visualization using a Mcnulty 4.
[2020-06-19] MEDS: NOREPINEPHRINE 8 MG/D5W 250 ML 8 MG/250 ML BAG 22.5 MG IV CONT (19:44)
--- NOTE | 2020-06-19 20:05 | PC.NURSE ---
Patient placed in prone position at approx 1700, patient oxygen saturation decreased, and remained in 82-83%. Dr. Ariza notified for further directions, and he advised to return patient to supine position. Patient did not recover oxygenation after returning to supine position, while replacing etab, it was determined that new etube was required. patient was reintubated at this time. Oxygen saturation remained in 80's, notified, adjustment to peep made. Family was notified and the wishes patient to remain a full code at this time. Report provided to JACQUELINE Dawkins.
--- NOTE | 2020-06-19 20:25 | PC.NURSE ---
Dr. Ariza updated regarding vital signs and current status of patient. Peep increased to [address] Ariza. Do not prone at this time. Family has visited patient outside of the room. Currently 84%. Apoorva Adkins PA to update family as well. Continue to monitor at this time.
--- NOTE | 2020-06-19 21:54 | PC.NURSE ---
Updated Dr. Ariza regarding current patient status. No further orders at this time.
[2020-06-20] VITALS (22 sets, daily range): BP systolic 85–118; BP diastolic 49–65; PULSE 73–86; RESP 24–30; TEMP 36–37.1; O2SAT 63–89
[2020-06-20] MEDS: CISATRACURIUM BESYLATE 200 MG in DEXTROSE 5% 80 ML 17.33 ML IV CONT ×2 (00:51→06:19)
[2020-06-20] MEDS: FENTANYL 2,500MCG/NS250ML(*CRX 2,500 MCG/250 ML BAG 15 MCG IV CONT (02:43)
[2020-06-20] MEDS: AMIODARONE 360 MG/D5W 200 ML 360 MG/200 ML BAG 16.67 MG IV CONT (02:43)
[2020-06-20] MEDS: EPOPROSTENOL SODIUM 0.5 MG VIAL 1 MG INHALATION (04:09)
[2020-06-20 04:48] LABS: Alveolar/Arterial O2 Gradient 579.9 mmHg; Base Excess ABG -5.3 mEq/l (+/-2.0); Carboxyhemoglobin 0.3 % THb (0-2.0); Fractional Inspired Oxygen 100 %; HCO3 ABG 23.8 mEq/l (22.0-26.0); Methemoglobin ABG 0.4 %THb (0-1.5); Oxygen Content ABG 13.6 %vol (16.0-22.0); Oxygen Saturation ABG 87.4 % (95.0-100.0); Oxyhemoglobin 88.9 % THb (90.0-100.0); PO2 ABG 66.8 mmHg (80.0-100.0); PO2 FiO2 Ratio Arterial Blood 0.67 %; Reduced Hemoglobin 10.4 %THb (0-5.0); Total Hemoglobin 10.8 g/dL (12.0-18.0)
[2020-06-20 04:50] LABS: PCO2 ABG 66.3 mmHg (35.0-45.0); pH ABG 7.173 (7.350-7.450)
[2020-06-20 04:51] LABS: Arterial Blood Gas PEEP 16 cmH2O; Arterial Blood Gas Tidal Volume 500 ml; Arterial Blood Gas Vent Mode CMV; Arterial Blood Gas Ventilator rate 24 /MIN; Device VENTILATOR; Modified Allen's Test Pass; Site Drawn RIGHT RADIAL
[2020-06-20 04:56] LABS: Hematocrit 31.5 % (42.0-52.0); Hemoglobin 9.7 g/dL (14.0-18.0); Mean Corpuscular HGB Conc 30.8 g/dl (32-36); Mean Corpuscular Hemoglobin 30.7 pg (26-34); Mean Corpuscular Volume 99.7 fl (80-100); Mean Platelet Volume 12.4 fl (7.4-10.4); Platelet Count Result 173 k/mm3 (150-375); Red Blood Count 3.16 M/mm3 (4.6-6.20); Red Cell Distribution Width 14.5 % (11.5-14.5); White Blood Count 6.1 K/mm3 (4.5-10.0)
[2020-06-20 05:13] LABS: D Dimer 3.96 ug/mL (<0.48)
[2020-06-20 05:17] LABS: Alanine Aminotransferase 39 U/L (4-50); Albumin Level 2.9 g/dL (3.5-5.1); Alkaline Phosphatase 87 U/L (38-126); Anion Gap 11 mmol/L (8-16); Aspartate Amino Transferase 51 U/L (17-59); Bilirubin,Total 1.4 mg/dL (0.2-1.3); Calcium 8.3 mg/dL (8.4-10.2); Carbon Dioxide 26 mmol/L (22-30); Chloride 103 mmol/L (98-107); Estimated CRCL calculation 23 ml/min; Estimated Glomerular Filt Rate 14; Glucose 169 mg/dL (75-110); Lactate Dehydrogenase 753 U/L (313-618); Magnesium 2.9 mg/dL (1.6-2.3); Phosphorus 9.4 mg/dL (2.5-4.5); Potassium 4.9 mmol/L (3.4-5.0); Sodium 140 mmol/L (137-145)
[2020-06-20 05:40] LABS: Blood Urea Nitrogen 166 mg/dL (9-20)
[2020-06-20 06:09] LABS: CRP > 45.0 mg/dL (<1.0)
[2020-06-20] MEDS: ALBUMIN HUMAN 25% 12.5 GM/50ML 50 ML IVPB (06:19)
[2020-06-20] MEDS: METOCLOPRAMIDE HCL INJ 10 MG/2 ML VIAL IV PUSH (06:19)
[2020-06-20] MEDS: CENTRAL LINE FLUSH 10 ML IV PUSH (06:19)
[2020-06-20] MEDS: NOREPINEPHRINE 8 MG/D5W 250 ML 8 MG/250 ML BAG 22.5 MG IV CONT (06:20)
[2020-06-20 07:43] LABS: Alveolar/Arterial O2 Gradient 597.2 mmHg; Base Excess ABG -4.6 mEq/l (+/-2.0); Fractional Inspired Oxygen 100 %; HCO3 ABG 24.7 mEq/l (22.0-26.0); Oxygen Content ABG 11.9 %vol (16.0-22.0); Oxyhemoglobin 76.9 % THb (90.0-100.0); PO2 FiO2 Ratio Arterial Blood 0.47 %
[2020-06-20 07:45] LABS: pH ABG 7.175 (7.350-7.450)
[2020-06-20 07:46] LABS: Modified Allen's Test Pass; Oxygen Saturation ABG 71.3 % (95.0-100.0); PCO2 ABG 68.4 mmHg (35.0-45.0); PO2 ABG 47.4 mmHg (80.0-100.0); Site Drawn RIGHT RADIAL
[2020-06-20] MEDS: ENOXAPARIN 40 MG/0.4 ML SYRINGE SUB-Q (07:46)
[2020-06-20] MEDS: PANTOPRAZOLE SODIUM IV 40 MG VIAL IV PUSH (07:46)
[2020-06-20 07:47] LABS: Device VENTILATOR
[2020-06-20 07:48] LABS: Arterial Blood Gas PEEP 18 cmH2O; Arterial Blood Gas Vent Mode PRESSURE CONTROL; Arterial Blood Gas Ventilator rate 30 /MIN
[2020-06-20 07:49] LABS: Peak Inspiratory Pressure 32 cmH2O
--- NOTE | 2020-06-20 08:51 | PM.EVENT ---
Event Note Event Note Event Note: 06/20/2020: On arrival to the ICU this morning at 7:00 a.m. patient was saturating in the 60s and 70s. A went into the room immediately adjusted the ventilator, review the x-ray it ordered ABG. ABG with significant hypoxemia. . -chest x-ray shows diffuse bilateral infiltrates seems to have worsened bilaterally -ABGs: PH 7.17, pCO2 68, PO2 47, HC03 24, O2 sats 71%. This was on pressure controlled ventilation with inspiratory pressure of 32, rate of 30, peep of 18 and 100% FiO2. -I called and discussed with Carrie, patient's and updated her patient's condition, plan of care, chest x-ray and ABG results. The at, last night to visit the patient and made him a DNR. She is aware this morning that patient is not doing well, and opts for comfort measures as she does not want her to suffer anymore. She also stated that she does not want to visit him as she already did that last night, he is going to be arranging for a home needs to decide if she was to cremate or bury him -comfort measures orders were placed in the chart -bedside RN, charge nurse were notified
--- NOTE | 2020-06-20 09:28 | WPDINTPN ---
Progress Note: A&P Assessment and Plan (1) Shock: Code(s): R57.9 - Shock, unspecified Status: Acute Assessment and Plan: Likely secondary to infection, sedation, positive pressure ventilation -leukocytosis improved -Levophed requirements increasing, maintain mean arterial pressures greater than 65 mmHg -lactic acid is normal -06/17/2020: Blood and urine cultures are negative, sputum cultures pending -continue vancomycin and cefepime -will have Infectious Disease follow the patient (2) Acute hypoxemic respiratory failure: Code(s): J96.01 - Acute respiratory failure with hypoxia Status: Acute Assessment and Plan: Acute hypoxemic respiratory failure likely related COVID-19 pneumonia -patient presented the hospital on 06/03/2019 and was intubated on 06/05/2019 after failing BiPAP and high-flow therapy -on 06/16/2020 early hours, patient decompensated, desaturated. -patient on low tidal volume strategy, allowing permissive hypercapnia. Maintain pH > 7.20 -remains on 100% FiO2, peep of 18, pressure control ventilation, rate of 30. On Flolan, Nimbex for chemical paralysis - Sedated with fentanyl and Versed -family decided to for comfort measures withdrawal of support - continue bronchodilators (3) COVID-19: Code(s): U07.1 - COVID-19 Status: Acute Assessment and Plan: COVID-19 -results positive 06/03/2020 - s/p dexamethasone (initiated on 06/04/2020) -not a candidate for Remdesivir due to acute on chronic renal failure on admission -received a unit of convalescent plasma 06/05 -continue droplet, airborne and contact isolation/precautions -monitor inflammatory markers and trend (4) Acute on chronic renal insufficiency: Code(s): N28.9 - Disorder of kidney and ureter, unspecified; N18.9 - Chronic kidney disease, unspecified Status: Acute Assessment and Plan: Acute on chronic kidney disease likely related to hypertension, prerenal, COVID-19, history of chronic kidney disease -nephrology following the patient -renal ultrasound was unremarkable --hyperkalemia has resolved -hypernatremia has resolved, will cut back on free water flushes - discussed with Nephrology, BUN and creatinine worsening, noninvasive hemodynamic monitoring showed patient is fluid responsive, additional IV fluids -CK levels in the 431 -if BUN and creatinine do not improve by tomorrow start dialysis (5) Dietary counseling and surveillance: Code(s): Z71.3 - Dietary counseling and surveillance Status: Acute Assessment and Plan: Patient with high tube feed residuals, currently on hold -continue Reglan P.r.n. MiraLax and Dulcolax added for constipation Stress ulcer prophylaxis: Protonix (6) DVT prophylaxis: Code(s): Z29.9 - Encounter for prophylactic measures, unspecified Status: Acute Assessment and Plan: Lovenox 40 mg SQ q.12 hours Additional Plan Discussed with Carrie, . Updated her with patient's change in condition. She did visit the patient last night 06/19/2020, when he was desaturating in the 80s and not doing too well. I updated her with this morning's chest x-ray, ABG. For the decided making him with comfort measures as she does not want to go through more suffering. Critical care time spent: 33 minutes Due to a high probability of clinically significant, life threatening deterioration, the patient required my highest level of preparedness to intervene emergently and I personally spent this critical care time directly and personally managing the patient. This critical care time included obtaining a history; examining the patient; pulse oximetry; ordering and review of studies; arranging urgent treatment with development of a management plan; evaluation of patient's response to treatment; frequent reassessment; and discussions with other providers. It was exclusive of separately billable procedures and treating other patie
--- NOTE | 2020-07-16 19:48 | P.DN_ITS ---
Discharge Sum: Prov Provider Primary care physician: Miller Fagan DO Admitting provider: Abram Summers MD Consults: 06/03/20 Consult to Physician Routine Comment: Consulting Provider: Eligio Coronado Reason for consultation: ACUTE ON CHRONIC RENAL INSUFFICIENCY Has provider been notified: Yes 06/05/20 Consult to Physician Routine Comment: Consulting Provider: Etelvina Ariza Reason for consultation: icu manage Has provider been notified: Yes 06/17/20 Wound/ET Consult Routine Reason for Consult:: facial wounds 06/18/20 14:49 Consult to Physician Routine Comment: DR. MCKEON PAGED Consulting Provider: Tono Mckeon call worker person/MD group to consult: Infectious disease Reason for consultation: Fevers, leukocytosis, septic shock, COVID-19, acute kidney injury Has provider been notified: Yes Discharge Sum: Diag Contributing Factors (1) Respiratory disorder with ventilator dependence: (2) Acute respiratory distress syndrome (ARDS) due to COVID-19 virus: (3) Shock: (4) Stage 3a chronic kidney disease: (5) YUDY (obstructive sleep apnea): (6) Chronic kidney disease, unspecified: (7) Gastro-esophageal reflux disease without esophagitis: (8) Acute hypoxemic respiratory failure: Discharge Sum: Summary Date and Time Date of admission: 06/03/20 08:01 Additional Data Attending physician: Abram Summers MD
--- NOTE | 2020-07-22 13:46 | WPDINFPN2 ---
Subjective Date/time seen: 07/22/20 13:46 Interval history: I do not recall being notified of consult. Patient prior to being seen. Objective Data Meds/Results Radiology Results: ITS Impressions Renal Ultrasound 06/05/20 14:15 Impression: 1: Unremarkable renal ultrasound. No stones, masses or hydronephrosis. Head CT 06/07/20 21:32 IMPRESSION: 1. No acute intracranial process. 2. Stable appearance of age-related changes including mild diffuse volume loss and mild scattered white matter hypoattenuation consistent with chronic small vessel ischemic disease. Abdomen X-Ray 06/19/20 19:19 IMPRESSION: Feeding tube in position. Chest X-Ray 06/20/20 06:52 IMPRESSION: 1. Line and tube(s) in position. 2. Extensive bilateral infection and/or edema unchanged.
== END 2020-06-20 08:40 | disposition expired | DRG 207 ==
LOC: ANHED 08:13 → ANHIMU 08:26 → ANHICU 06-05 13:26
PROVIDERS: Internal Medicine; Internal Medicine Nephrology; Admitting Provider Internal Medicine; Emergency Provider Emergency Medicine; PCP Internal Medicine; Visit Provider Internal Medicine
DX: U07.1 COVID-19 (principal); J12.82 Pneumonia due to coronavirus disease 2019; J80 Acute respiratory distress syndrome; N17.9 Acute kidney failure, unspecified; K86.3 Pseudocyst of pancreas; E87.0 Hyperosmolality and hypernatremia; R57.9 Shock, unspecified; Z66 Do not resuscitate; Z51.5 Encounter for palliative care; I12.9 Hypertensive chronic kidney disease with stage 1 through stage 4 chronic kidney disease, or unspecified chronic kidney disease; G47.33 Obstructive sleep apnea (adult) (pediatric); E86.0 Dehydration; R29.6 Repeated falls; E53.8 Deficiency of other specified B group vitamins; K21.9 Gastro-esophageal reflux disease without esophagitis; G89.29 Other chronic pain; R10.9 Unspecified abdominal pain; R45.1 Restlessness and agitation; N18.31 Chronic kidney disease, stage 3a; I95.2 Hypotension due to drugs; T42.75XA Adverse effect of unspecified antiepileptic and sedative-hypnotic drugs, initial encounter; Y92.230 Patient room in hospital as the place of occurrence of the external cause; I48.91 Unspecified atrial fibrillation; E83.52 Hypercalcemia; E87.70 Fluid overload, unspecified; E87.5 Hyperkalemia
CPT/HCPCS: 31500; 36415; 36430; 36556; 36600; 70450; 71045; 74018; 76775; 80048; 80053; 80069; 81001; 82375; 82550; 82570; 82728; 82805; 83050; 83605; 83615; 83690; 83735; 83883; 83970; 84100; 84156; 84300; 85025; 85027; 85055; 85380; 85610; 85730; 85999; 86140; 86334; 86335; 86900; 86901; 87040; 87086; 93005; 94002; 94003; 94640; 96374; 99291; A9270; C1751; C9113; J0282; J0456; J0692; J0696; J1100; J1650; J2060; J2250; J2430; J2704; J2765; J3010; J3370; J7030; J7040; J7050; P9047; P9059